=== PATIENT | male | born 1940 | race Caucasian/White ===

== ENCOUNTER → 2017-06-11 | Outpatient (CLI) | payer MEDICARE ==
[~2017-06-11] MED LIST: ADVA100A INH; CARD4TAB2 PO; GABA300C5 PO; IOHEXOL 350 MG/ML 10 ML VIAL (for RAD DIAG) IVCONTRAST ONE; ISOS30TA15; ISOS30TA3 PO; LIPI80TA PO; MECL1TAB42 PO; METO-309 PO; MULT-65 PO; PRIL20TA2 PO; PROS5TAB PO; SPIRCAP INH; XOPEAER4 INH
[2017-06-11 09:39] LABS: AUTOMATED NEUTROPHIL # 3.3 TH/MM3 (1.8-7.7); BASOPHIL % 0.6 % (0.0-2.0); EOSINOPHIL # 0.1 TH/MM3 (0-0.4); EOSINOPHIL % 1.5 % (0.0-4.0); HEMATOCRIT 42.8 % (39.0-51.0); HEMO FLAGS DIFF FINAL; LYMPH % 21.7 % (9.0-44.0); LYMPHOCYTE # 1.1 TH/MM3 (1.0-4.8); MEAN CELL VOLUME 95.7 FL (80.0-100.0); MEAN CORPUSCULAR HEMOGLOBIN 32.2 PG (27.0-34.0); MEAN CORPUSCULAR HGB CONC 33.6 % (32.0-36.0); MONO % 13.6 % (0.0-8.0); NEUT % 62.6 % (16.0-70.0); PLATELET COUNT 133 TH/MM3 (150-450); RED BLOOD COUNT 4.47 MIL/MM3 (4.50-5.90); RED CELL DISTRIBUTION WIDTH 13.1 % (11.6-17.2); WHITE BLOOD COUNT 5.3 TH/MM3 (4.0-11.0)
[2017-06-11 09:50] LABS: APTT (PATIENT) 29.4 SEC (24.3-30.1)
[2017-06-11 09:51] LABS: INTERNATIONAL NORMALIZED RATIO 1.2 RATIO; PROTHROMBIN TIME - PATIENT 12.8 SEC (9.8-11.6)
[2017-06-11 10:03] LABS: BICARBONATE 26.5 MEQ/L (21.0-32.0); POTASSIUM 4.1 MEQ/L (3.5-5.1)
--- NOTE | 2017-06-11 14:37 | RADRPT ---
EXAM DATE/TIME: 06/11/2017 09:22 [facility] COMPARISON: No previous studies available for comparison. INDICATIONS : Aortic stenosis; TAVR. IV CONTRAST: 100 cc Omnipaque 350 (iohexol) IV RADIATION DOSE: 42.58 CTDIvol (mGy) MEDICAL HISTORY : Chronic obstructive pulmonary disease. Cardiovascular disease AGIB SURGICAL HISTORY : None. ENCOUNTER: Initial ACUITY: 1 day PAIN SCALE: 0/10 LOCATION: Bilateral chest TECHNIQUE: Volumetric scanning was performed using a multi-row detector CT scanner. The data was post processed with a variety of visualization algorithms including full volume maximum intensity projection, multi -planar sliding thin slab reformation, curved planar reformation, and surface rendering techniques. Using automated exposure control and adjustment of the mA and/or kV according to patient size, radiat ion dose was kept as low as reasonably achievable to obtain optimal diagnostic quality images. DIC OM format image data is available electronically for review and comparison. FINDINGS: CARDIAC: The coronary system is right dominant. The coronary ostia originate in their typical location. There is extensive atherosclerotic plaquing involving the LAD, circumflex and right coronary. The coronari es were not evaluated in detail. There is no pericardial effusion AORTIC ROOT/VALVE: There are 3 valve leaflets. There is extensive calcification involving the aortic annulus and valve l eaflets. The aortic root measures 3.4 cm in maximum dimension. THORACIC AORTA: The tubular portion of the ascending aorta is normal in caliber measuring 3.6 cm. It is relatively di sease free. The aortic arch is normal in caliber. There is mild atherosclerotic plaquing. The origins of the great vessels are widely patent. The descending thoracic aorta demonstrates mild diffuse athe rosclerotic plaquing but is normal in caliber throughout its course measuring 2.6 cm. There is no tori dence of dissection. ABDOMINAL AORTA: The celiac origin is widely patent. There is a short segment occlusion at the origin of the SMA. Ther e are single renal arteries bilaterally. The renal arteries are adequate in caliber. The infrarenal a cosme is normal in caliber. There is moderate diffuse atherosclerotic plaquing. The SARAH is patent. PELVIS: There is diffuse atherosclerotic plaquing involving the common iliac arteries bilaterally. The plaque is predominantly calcified. The common iliac circulation is adequate in caliber bilaterally. There i s high grade stenosis at the origin of the left hypogastric. The right hypogastric is adequate in rajendra iber. The external iliac circulation is widely patent and normal in caliber. The common femorals are widely patent bilaterally. CT source data: THORAX: There are advanced COPD changes and pulmonary fibrosis. The heart is enlarged. There are some scatter ed hilar and mediastinal nodes. These are nonspecific by CT size criteria.. ABDOMEN: The solid organs of the abdomen are grossly intact. There is no retroperitoneal adenopathy. No free a ir or free fluid is present. PELVIS: There is no free fluid within the pelvis. No iliac or inguinal adenopathy is seen. There are small bi lateral inguinal hernias. CONCLUSION: 1. Extensive calcification of the aortic annulus and valve leaflets. Measurements for the thoracic ao rta are listed above. 2. Normal origin of the coronary ostia with fairly extensive atherosclerotic coronary artery disease as above. 3. There is fairly extensive calcified atherosclerotic plaque seen in the thoracic aorta, abdominal a cosme and common iliac arteries. No areas of high grade stenosis are identified. Brock Kruse MD on June 11, 2017 at 14:22 Board Certified Radiologist. This report was verified electronically.
--- NOTE | 2017-06-12 09:04 | RSPPFT ---
DATE OF PROCEDURE: 06/10/17 COMMENTS: Spirometry shows FVC of 3.2 at 59% of predicted, FEV1 of 2.5 at 81%, FEV1/FVC ratio is normal. Flow is slightly decreased at FEF 25, FEF 50, FEF 75 and FEF 25-75. Flow volume loop indicates a restrictive pattern. IMPRESSION: 1. Study is suggestive of restrictive lung disease. 2. Post-bronchodilator study was not done. 3. Patient will need a complete pulmonary function study for further evaluation.
== END ==
LOC: HRSP 07:46
PROVIDERS: ATTEND Radiology Vascular & Interventional Radiology
DX: I35.0 Nonrheumatic aortic (valve) stenosis (principal)
CPT/HCPCS: 74174; 80048; 82040; 85025; 85610; 86850; 86900; 86901; 94010; Q9967; 85730

== ENCOUNTER → 2017-06-17 | Outpatient (CLI) | payer MEDICARE ==
[~2017-06-17] MED LIST changes: +ASPI81 PO; +DOCU1CAP39 PO; -IOHEXOL 350 MG/ML 10 ML VIAL (for RAD DIAG) IVCONTRAST ONE; -ISOS30TA15; +ISOS30TA17; +METO25TA3 PO; +TRAM50 PO
[2017-06-17 11:53] LABS: BASOPHIL % 0.6 % (0.0-2.0); EOSINOPHIL # 0.1 TH/MM3 (0-0.4); EOSINOPHIL % 1.6 % (0.0-4.0); HEMATOCRIT 43.3 % (39.0-51.0); HEMO FLAGS DIFF FINAL; LYMPH % 20.9 % (9.0-44.0); LYMPHOCYTE # 1.3 TH/MM3 (1.0-4.8); MEAN CELL VOLUME 97.3 FL (80.0-100.0); MEAN CORPUSCULAR HEMOGLOBIN 32.6 PG (27.0-34.0); MEAN CORPUSCULAR HGB CONC 33.5 % (32.0-36.0); MONO % 13.9 % (0.0-8.0); PLATELET COUNT 137 TH/MM3 (150-450); RED BLOOD COUNT 4.45 MIL/MM3 (4.50-5.90); RED CELL DISTRIBUTION WIDTH 13.1 % (11.6-17.2); WHITE BLOOD COUNT 6.4 TH/MM3 (4.0-11.0)
[2017-06-17 12:03] LABS: APTT (PATIENT) 29.4 SEC (24.3-30.1); INTERNATIONAL NORMALIZED RATIO 1.1 RATIO; PROTHROMBIN TIME - PATIENT 12.1 SEC (9.8-11.6)
[2017-06-17 12:12] LABS: BICARBONATE 28.3 MEQ/L (21.0-32.0); POTASSIUM 4.1 MEQ/L (3.5-5.1)
[2017-06-17 12:24] LABS: BLOOD, URINE NEG (NEG); COMMENT (UR) CULT NOT INDICATED; CULTURE IF INDICATED CULT NOT INDICATED; GLUCOSE,URINE NEG (NEG); KETONE, URINE NEG (NEG); NITRITE,URINE NEG (NEG); SQUAMOUS EPITHELIAL CELL URINE <1 /hpf (0-5); URINE COLOR YELLOW (YELLW/STRAW)
--- NOTE | 2017-06-17 13:24 | RADRPT ---
EXAM DATE/TIME: 06/17/2017 12:50 [facility] COMPARISON: No previous studies available for comparison. INDICATIONS : Preop aortic valve replacement. MEDICAL HISTORY : Cardiovascular disease. PAD. SURGICAL HISTORY : Cholecystectomy. Hernia. Left leg arterial surgery. ENCOUNTER: Initial ACUITY: 1 day PAIN SCORE: 0/10 LOCATION: Bilateral neck PEAK SYSTOLIC VELOCITIES (cm/sec): ICA/CCA RATIO: Right: 1.7 Left: 0.9 ICA: Right: 96 Left: 65 CCA: Right: 57 Left: 75 ECA: Right: 52 Left: 66 VERTEBRAL: Right: 56 antegrade Left: 34 antegrade Elevated flow velocities and ICA/CCA ratios have been found to correlate with increased degrees of vessel stenosis, calculated as percentage of diameter relative to a normal segment of distal ICA/CCA FINDINGS: RIGHT CAROTID: There is no evidence for a hemodynamically significant carotid stenosis. Minimal int imal hyperplasia is present with moderate scattered calcific plaque. LEFT CAROTID: There is no evidence for a hemodynamically significant carotid stenosis. Minimal inti mal hyperplasia is present with scattered calcific plaque. VERTEBRAL ARTERIES: Flow is antegrade in both vertebral arteries. MISCELLANEOUS: There are no ancillary masses or adenopathy. CONCLUSION: Negative examination for a hemodynamically significant carotid stenosis. Moderate calci fic plaque along the right. Board Certified Radiologist. This report was verified electronically.
[2017-06-17 15:02] LABS: MRSA PCR NEGATIVE (NEGATIVE); STAPH AUREUS PCR NEGATIVE (NEGATIVE)
--- NOTE | 2017-06-17 15:23 | RADRPT ---
EXAM DATE/TIME: 06/17/2017 13:11 [facility] COMPARISON: No previous studies available for comparison. INDICATIONS : Pre op aortic valve replacement. Evaluate for pneumonia, pneumothorax, or communicable diseases. MEDICAL HISTORY : Chronic obstructive pulmonary disease. Cardiovascular disease AFIB SURGICAL HISTORY : Umbilical hernia repair. Cholecystectomy. ENCOUNTER: Initial ACUITY: 1 day PAIN SCORE: 0/10 LOCATION: Bilateral chest FINDINGS: Diffuse increased interstitial markings are noted bilaterally consistent with acute or chronic inters titial disease. The heart is top normal in size. Mild compression deformity is noted involving what appears to be the T12 vertebral body of indeterminate age. Mild compression deformity is also noted involving T5 of indeterminate age. CONCLUSION: 1. Mild increased interstitial markings bilaterally consistent with acute or chronic interstitial dis ease. Clinical correlation is recommended. 2. Mild compression deformities involving T12 and T5 of indeterminate ages. Ranjit De Los Santos MD on June 17, 2017 at 15:08 Board Certified Radiologist. This report was verified electronically.
--- NOTE | 2017-06-18 13:20 | EKG ---
Date Performed: 06/17/2017 Time Performed: 11:17:09 PTAGE: 77 years EKG: ATRIAL FIBRILLATION WITH SLOW VENTRICULAR RESPONSE RIGHT BUNDLE BRANCH BLOCK ABNORMAL ECG NO PREVIOUS TRACING DOCTOR: Omer Dialol Interpretating Date/Time 06/18/2017 13:15:56
== END ==
LOC: CPRE 10:46
PROVIDERS: ATTEND Thoracic Surgery (Cardiothoracic Vascular Surgery)
DX: Z01.810 Encounter for preprocedural cardiovascular examination (principal); Z01.811 Encounter for preprocedural respiratory examination; Z01.812 Encounter for preprocedural laboratory examination; I35.0 Nonrheumatic aortic (valve) stenosis; I48.0 Paroxysmal atrial fibrillation; R94.31 Abnormal electrocardiogram [ECG] [EKG]
CPT/HCPCS: 36415; 71020; 80048; 81001; 85025; 85610; 85730; 86850; 86900; 86901; 87640; 87641; 93005; 93880

== ENCOUNTER 2017-06-22 05:32 | Inpatient (IN) | payer MEDICARE ==
[~2017-06-22] VITALS: Ht 195.6 cm; Wt 90.5 kg
[2017-06-22] VITALS (7 sets, daily range): BP systolic 105–148; BP diastolic 45–68; PULSE 69–86; RESP 18–22; TEMP 96.7–98.6; O2SAT 95–99
[~2017-06-22 05:32] MED LIST changes: -ASPI81 PO; -DOCU1CAP39 PO; -ISOS30TA17; -METO25TA3 PO; -TRAM50 PO
[2017-06-22] MEDS ORDERED: VANCOMYCIN HCL 1000 MG VIAL ONE (06:10)
[2017-06-22] MEDS ORDERED: ceFAZolin 2 GM PREMIX 50 ML ONE (06:10)
[2017-06-22] MEDS ORDERED: methylPREDNISolone SOD SUCC 125 MG/2 ML VIAL ONE (06:10)
[2017-06-22] MEDS ORDERED: BUPIVACAINE HCL PF 0.5% 30 ML VIAL ONE (06:10)
[2017-06-22] MEDS ORDERED: HEPARIN SODIUM - SQ 10,000 UNITS/ML VIAL ONE (06:10)
[2017-06-22] MEDS ORDERED: DEXMEDETOMIDINE HCL 200 MCG/2 ML VIAL ONE (06:13)
[2017-06-22] MEDS ORDERED: CHLORHEXIDINE GLUCONATE 4% SOLN 120 ML BTL TOPICAL SCH (06:30)
[2017-06-22] MEDS ORDERED: METOPROLOL TARTRATE 25 MG TAB PO PRN ×2 (06:30→07:30)
[2017-06-22] MEDS ORDERED: CEFAZOLIN 500 MG in NS IRR BTL 500 ML IRRIGATION SCH (06:30)
[2017-06-22] MEDS ORDERED: CHLORHEXIDINE GLUCONATE 2 % 1 PACK (2 CLOTHS) TOPICAL PRN ×2 (06:30→07:30)
[2017-06-22] MEDS ORDERED: ceFAZolin 2 GM PREMIX 50 ML IV SCH (06:30)
[2017-06-22] MEDS ORDERED: INSULIN REGULAR 100 UNITS in NS 100 ML IV PRN (06:30)
[2017-06-22] MEDS ORDERED: METOPROLOL TARTRATE 25 MG TAB PO SCH (06:30)
[2017-06-22] MEDS ORDERED: LACTATED RINGER'S 1000 ML IV PRN ×2 (06:30→07:30)
[2017-06-22] MEDS ORDERED: INSULIN HUMAN REGULAR 1,000 UNITS/10 ML VIAL SQ PRN ×2 (06:30→07:30)
[2017-06-22] MEDS ORDERED: SODIUM CHLORID 0.9% 500 ML IV PRN ×2 (06:30→07:30)
[2017-06-22] MEDS ORDERED: DEXTROSE 50% IN WATER 50 ML VIAL(D50) IV PUSH PRN ×2 (06:30→12:00)
[2017-06-22] MEDS ORDERED: POVIDONE IODINE 5% (ANTISEPSIS KIT) 4 APPLICATIONS EACH NARE PRN ×2 (06:30→07:30)
[2017-06-22] MEDS ORDERED: POTASSIUM CHLORIDE 40 MEQ/20 ML VIAL ONE (07:20)
[2017-06-22] MEDS ORDERED: SODIUM BICARBONATE 8.4% INJ 100 ML ONE (07:20)
[2017-06-22] MEDS ORDERED: ALBUMIN 25% INJ 50 ML IV ONE (07:21)
[2017-06-22] MEDS ORDERED: MANNITOL INJ 100 ML ONE (07:21)
[2017-06-22] MEDS ORDERED: HEPARIN SODIUM - IV 10,000 UNITS/10 ML VIAL ONE (07:21)
[2017-06-22] MEDS ORDERED: CALCIUM CHLORIDE 10% SOLN 1 GRAM/10 ML SYR ONE (07:22)
[2017-06-22] MEDS ORDERED: ceFAZolin INJ 1,000 MG VIAL ONE (11:14)
[2017-06-22] MEDS ORDERED: CLEVIDIPINE INJ 50 ML IV PRN (12:00)
[2017-06-22] MEDS ORDERED: ACETAMINOPHEN 650 MG SUPP RECTAL PRN (12:00)
[2017-06-22] MEDS ORDERED: ACETAMINOPHEN 325 MG TAB PO PRN (12:00)
[2017-06-22] MEDS ORDERED: PHENYLEPHRINE HCL 10 MG/ML VIAL IV ONE (12:00)
[2017-06-22] MEDS ORDERED: oxyCODONE/ACETAMINOPHEN 5 MG/325 MG TAB PO PRN (12:00)
[2017-06-22] MEDS ORDERED: NORMOSOL R INJ 1,000 ML IV ONE (12:00)
[2017-06-22] MEDS ORDERED: ALBUMIN 5% INJ 250 ML IV PRN (12:00)
[2017-06-22] MEDS ORDERED: NEOSTIGMINE 3 MG/3 ML SYR IV ONE (12:00)
[2017-06-22] MEDS ORDERED: Post-op Orders (for Pharmacy) MISC OTHER ONE (12:00)
[2017-06-22] MEDS ORDERED: SODIUM BICARBONATE 8.4% SOLN 50 MEQ/50 ML VIAL IV PUSH PRN ×2 (12:00)
[2017-06-22] MEDS ORDERED: SODIUM CHLOR 0.9% 250 ML INJ 750 ML IV ONE (12:00)
[2017-06-22] MEDS ORDERED: SODIUM CHLORID 0.9% 500 ML INJ 500 ML IV ONE (12:00)
[2017-06-22] MEDS ORDERED: POTASSIUM CHLORIDE 20 MEQ CONTROLLED RELEASE TAB PO PRN ×2 (12:00)
[2017-06-22] MEDS ORDERED: ONDANSETRON HCL 4 MG/2 ML VIAL IV PUSH PRN (12:00)
[2017-06-22] MEDS ORDERED: CALCIUM CHLORIDE INJ 1 GM in SODIUM CHLORIDE 0.9% INJ 100 ML IV PRN (12:00)
[2017-06-22] MEDS ORDERED: hydrALAZINE HCL 20 MG/ML VIAL IV PUSH PRN (12:00)
[2017-06-22] MEDS ORDERED: PROTAMINE SULFATE 250 MG/25 ML VIAL IV ONE (12:00)
[2017-06-22] MEDS ORDERED: ARTIFICIAL TEARS OPTH OINT 3.5 APPLIC/3.5 GM TUBO EACH EYE ONE (12:00)
[2017-06-22] MEDS ORDERED: PHENYLEPH/NS 1000 MCG/10 ML SYR IV ONE ×2 (12:00)
[2017-06-22] MEDS ORDERED: RESP: ALBUTEROL 2.5 MG/IPRATROPIUM 0.5 MG NEB (PRN) NEB (12:00)
[2017-06-22] MEDS ORDERED: fentaNYL CITRATE 2500 MCG/50 ML VIAL IV ONE (12:00)
[2017-06-22] MEDS ORDERED: GLYCOPYRROLATE 1 MG/5 ML SYRINGE IV PUSH ONE (12:00)
[2017-06-22] MEDS ORDERED: HEPARIN SODIUM - SQ 10,000 UNITS/ML VIAL SQ ONE (12:00)
[2017-06-22] MEDS ORDERED: CARDIOPLEGIC IRR 2,000 ML ONE (12:00)
[2017-06-22] MEDS ORDERED: CALCIUM CHLORIDE 10% 1 GRAM/10 ML VIAL IV PUSH PRN (12:00)
[2017-06-22] MEDS ORDERED: DEXMEDETOMIDINE INJ 200 MCG in SODIUM CHLORIDE 0.9% INJ 50 ML IV PRN (12:00)
[2017-06-22] MEDS ORDERED: LACTATED RINGER'S 1000 ML INJ 1,000 ML IV ONE (12:00)
[2017-06-22] MEDS ORDERED: INSULIN REGULAR (IV INFUSION) 100 UNITS in SODIUM CHLORIDE 0.9% INJ 99 ML IV PRN (12:00)
[2017-06-22] MEDS ORDERED: VECURONIUM BROMIDE 10 MG VIAL IV ONE (12:00)
[2017-06-22] MEDS ORDERED: ePHEDrine/NS 25 MG/5 ML SYR IV ONE ×2 (12:00)
[2017-06-22] MEDS ORDERED: MAGNESIUM SULFATE 1 GM/2 ML VIAL IV ONE (12:00)
[2017-06-22] MEDS ORDERED: LIDOCAINE HCL 1% PF 5 ML AMPULE OTHER ONE (12:00)
[2017-06-22] MEDS ORDERED: ONDANSETRON HCL 4 MG/2 ML VIAL IV PUSH ONE (12:00)
[2017-06-22] MEDS ORDERED: POTASSIUM CHLOR 20 MEQ PREMIX 100 ML IV PRN ×3 (12:00)
[2017-06-22] MEDS ORDERED: METOPROLOL TARTRATE 5 MG/5 ML VIAL IV PUSH PRN (12:00)
[2017-06-22] MEDS ORDERED: MIDAZOLAM HCL 2 MG/2 ML VIAL IV ONE (12:00)
[2017-06-22] MEDS ORDERED: MAGNESIUM SULFATE INJ 2 GM in SODIUM CHLORIDE 0.9% INJ 100 ML IV PRN ×4 (12:00)
[2017-06-22] MEDS ORDERED: AMINOCAPROIC ACID INJ 250 MG/ML 20 ML VIAL IV ONE (12:00)
[2017-06-22] MEDS ORDERED: SODIUM CHLORIDE 0.9% FLUSH 10 ML FLUSH IV FLUSH PRN (12:00)
--- NOTE | 2017-06-22 12:06 | PD.OP ---
cc: Lilly Rosario MD; Ham,Bill Moore Operative Report Date of Surgery: Jun 22, 2017 Preoperative Diagnosis: (1) Aortic stenosis (2) Diastolic heart failure due to valvular disease Postoperative Diagnosis: same Procedure: Minimally invasive AVR with a 25 Intuity tissue valve Left femoral artery and vein percutaneous cannulation with Perclose closure of the artery GLENNY Anesthesia: Dr. Harley Surgeon: Lilly Rosario Journeyman Mechanic(s): CHARO [place] Operation and Findings: The risks, benefits, complications, treatment options, and expected outcomes were discussed with the patient. The possibilities of reaction to medication, pulmonary aspiration, perforation of viscus, bleeding, recurrent infection, the need for additional procedures, failure to diagnose a condition, and creating a complication requiring transfusion or operation were discussed with the patient. The patient concurred with the proposed plan, giving informed consent. The site of surgery properly noted/marked. The patient was taken to Operating Room, identified as Linda Ramsay and the procedure verified as Minimally Invasive Aortic Valve Replacement. A Time Out was held and the above information confirmed. Standard monitoring lines and Looney catheter were placed. General anesthesia was induced. The patient was prepped and draped in a sterile fashion. A 6 cm right anterior thoracotomy was performed and the 3rd rib was shingled. The right internal mammary artery and vein were ligated and divided. An Mark Anthony retractor was placed followed by a small chest retractor. The pericardium was opened and a pericardial sling was created using interrupted 0 silk sutures. A small 1 cm incision was made at the 6th intercostal space and an LV vent and pericardial suction were placed through this access port. The aorta was dissected posteriorly for crossclamp placement. The left femoral artery and vein were percutaneously accessed using ultrasound guidance. The patient was heparinized for cardiopulmonary bypass. The left femoral artery was cannulated with a 17F [employer] arterial cannula. The left femoral vein was cannulated with a 21 [employer] cannula under GLENNY guidance. Three Perclose devices were placed in the artery for later closure. Antegrade Custodiol cardioplegia was employed. The patient was placed on cardiopulmonary bypass. An aortic cross-clamp was applied and the heart was arrested using cold Custodiol cardioplegia delivered through a 14F catheter. The aorta was opened above the sinotubular ridge and the aortic valve was exposed. On opening the aorta, the valve appeared trileaflet with heavy calcification. The valve was resected as well as all annular calcification, sized for a 25 mm Intuity tissue valve which was placed with 3, 2-0 Tycron valve sutures. The valve seated well, and was balloon deployed to 5 shayla. The aorta was closed with running 4-0 Prolene suture. The patient systemically rewarmed and placed in Trendelenburg position. The heart was vigorously deaired with a clamp on. The clamp was removed, deairing continued. The patient was easily weaned from cardiopulmonary bypass. Decannulation was carried out without incident and both artery was secured with the Perclose sutures. The vein was controlled with manual compression. Protamine was given. There was no adverse reaction. Intraoperative GLENNY following the procedure showed a well-seated aortic valve with no perivalvular leak and preserved ventricular function. Wound was checked for hemostasis was obtained using electrocautery. A 32F right pleural chest tube was placed and secured to the skin with a 0 silk suture. The fascia and pectoralis were closed with 0 Vicryl. The subcutaneous tissue was closed using a running 3-0 Monocryl suture. The skin was closed with 4-0 Monocryl. Sterile dressings were placed. At the end of the operation, all sponge, instruments, and needle counts were correct. The patient was transferred to the CVICU in stable condition. Lilly Rosario MD Jun 22, 2017 12:06
[2017-06-22] MEDS ORDERED: LACTATED RINGER'S 1000 ML INJ 500 ML IV PRN (12:45)
[2017-06-22] MEDS ORDERED: RESP: RACEPINEPHRINE 2.25% 0.5 ML NEB NEB PRN (13:00)
--- NOTE | 2017-06-22 13:09 | RADRPT ---
EXAM DATE/TIME: 06/22/2017 12:46 [facility] COMPARISON: CHEST PA & LAT, June 17, 2017, 13:11. INDICATIONS : Post CABG. MEDICAL HISTORY : Chronic obstructive pulmonary disease. Gastroesophageal reflux disease. SURGICAL HISTORY : CABG. Cholecystectomy. ENCOUNTER: Initial ACUITY: 1 day PAIN SCORE: Non-responsive. LOCATION: Bilateral chest FINDINGS: Right chest tube and right central line in good position. Mild cardiomegaly with minimal interstitia l edema. There is no pneumothorax. CONCLUSION: 1. Negative pneumothorax, support apparatus in good position. 2. Cardiomegaly with mild congestive failure with minimal progression from 06/17/2017. Sigifredo Kruse MD FACR on June 22, 2017 at 13:06 Board Certified Radiologist. This report was verified electronically.
[2017-06-22] MEDS: ACETAMINOPHEN 1000 MG/100 ML 100 ML IV SCH ×2 (13:47→20:47)
[2017-06-22] MEDS ORDERED: AMIODARONE HCL 150 MG/3 ML VIAL ONE (14:06)
[2017-06-22] MEDS ORDERED: AMIODARONE HCL 150 MG/3 ML VIAL IV PUSH ONE (16:00)
[2017-06-22] MEDS: RESP: ALBUTEROL 2.5 MG/IPRATROPIUM 0.5 MG NEB (SCH) NEB ×2 (16:39→22:05)
[2017-06-22] MEDS: ATORVASTATIN 80 MG TAB PO SCH (20:46)
[2017-06-22] MEDS: BUDESONIDE-FORMOTEROL 80/4.5 MCG INHALER INH SCH (20:46)
[2017-06-22] MEDS: SODIUM CHLORIDE 0.9% FLUSH 10 ML FLUSH IV FLUSH SCH (20:46)
[2017-06-22] MEDS: FINASTERIDE 5 MG TAB PO SCH (21:00)
[2017-06-22] MEDS ORDERED: OMEPRAZOLE MAGNESIUM PO SCH (21:00)
[2017-06-23] VITALS (16 sets, daily range): BP systolic 109–151; BP diastolic 48–71; PULSE 73–129; RESP 16–19; TEMP 98.4–98.9; O2SAT 96–98
[2017-06-23] MEDS: ACETAMINOPHEN 1000 MG/100 ML 100 ML IV SCH ×2 (02:53→07:48)
[2017-06-23 04:48] LABS: HEMATOCRIT 37.1 % (39.0-51.0); MEAN CELL VOLUME 95.7 FL (80.0-100.0); MEAN CORPUSCULAR HEMOGLOBIN 31.7 PG (27.0-34.0); MEAN CORPUSCULAR HGB CONC 33.2 % (32.0-36.0); PLATELET COUNT 68 TH/MM3 (150-450); RED BLOOD COUNT 3.88 MIL/MM3 (4.50-5.90); RED CELL DISTRIBUTION WIDTH 13.2 % (11.6-17.2); WHITE BLOOD COUNT 11.5 TH/MM3 (4.0-11.0)
[2017-06-23] MEDS: RESP: ALBUTEROL 2.5 MG/IPRATROPIUM 0.5 MG NEB (SCH) NEB ×2 (04:48→08:48)
[2017-06-23 05:01] LABS: REVIEW FLAG FINAL
[2017-06-23 05:16] LABS: BICARBONATE 22.9 MEQ/L (21.0-32.0); MAGNESIUM 1.9 MG/DL (1.5-2.5); POTASSIUM 3.9 MEQ/L (3.5-5.1)
--- NOTE | 2017-06-23 05:45 | RADRPT ---
EXAM DATE/TIME: 06/23/2017 04:43 [facility] COMPARISON: CHEST SINGLE AP, June 22, 2017, 12:46. INDICATIONS : Short of breath. MEDICAL HISTORY : Chronic obstructive pulmonary disease. Gastroesophageal reflux disease. SURGICAL HISTORY : CABG. Cholecystectomy. ENCOUNTER: Subsequent ACUITY: 4 - 6 days PAIN SCORE: 0/10 LOCATION: Bilateral chest FINDINGS: The cardiac silhouette is enlarged in transverse diameter. There is prominence of the central pulmona ry vasculature with indistinct vascular margins compatible with vascular congestion but no evidence o f overt failure. The findings are improved when compared with the prior exam. A right chest tube is i n place. There is no evidence of pneumothorax. CONCLUSION: 1. Cardiomegaly and findings of vascular congestion without overt failure. The findings are improved when compared with the prior exam. Brandon Feliciano MD on June 23, 2017 at 5:42 Board Certified Radiologist. This report was verified electronically.
[2017-06-23] MEDS: PANTOPRAZOLE SOD 40 MG DELAYED RELEASE TAB PO SCH (06:00)
[2017-06-23] MEDS: ASPIRIN 81 MG CHEW TAB PO SCH ×3 (08:20→08:54)
[2017-06-23] MEDS: BUDESONIDE-FORMOTEROL 80/4.5 MCG INHALER INH SCH ×2 (08:20→21:15)
[2017-06-23] MEDS: TIOTROPIUM BROMIDE 18 MCG INH INH SCH (08:20)
[2017-06-23] MEDS: SODIUM CHLORIDE 0.9% FLUSH 10 ML FLUSH IV FLUSH SCH ×2 (08:20→21:00)
[2017-06-23] MEDS: GABAPENTIN 300 MG CAP PO SCH ×2 (08:20→21:13)
[2017-06-23] MEDS: MUPIROCIN 2% OINT 22 GM TUBE EACH NARE SCH ×2 (09:00→21:00)
[2017-06-23] MEDS ORDERED: MULTIVITAMIN INJ 10 ML, THIAMINE INJ 500 MG, FOLIC ACID INJ 1 MG in SODIUM CHLORID 0.9%... IV SCH (09:00)
[2017-06-23] MEDS ORDERED: MULTIVITAMIN TAB PO SCH (09:00)
[2017-06-23] MEDS ORDERED: DEXTROSE 50% IN WATER 50 ML VIAL(D50) IV PUSH PRN (10:00)
[2017-06-23] MEDS ORDERED: GLUCAGON 1 MG/ML VIAL OTHER PRN (10:00)
--- NOTE | 2017-06-23 10:09 | PD.CAR.PN ---
CVT Progress Note Subjective/Hospital Course: 77/ male exertional dyspnea , chest pain and syncope , Diastolic heart Failure NYHA 2, hx of severe, Aortic stenosis underwent cath up [place] nonobstructive CAD , electively admitted for Aortic valve replacement EF 45% PMH, severe , Afib, COPD , HTN, HLP surgery: 06/22 Minimally invasive AVR with a 25 Intuity tissue valve Left femoral artery and vein percutaneous cannulation with Perclose closure of the artery GLENNY extubated after surgery/ pump time 83min crystalloid 1750cc/ cell saver 750cc, EBL 2250cc / given solumedrol 06/23 up in chair, on nasal cannula chest tube drained 200cc/ 12 hrs + 2 kg gentle diuresis episode of afib last pm, bolused with IV amiodarone / now on scheduled po amiodarone continue pulm toileting transfer to stepdown unit , Objective: GENERAL: SKIN: Warm and dry. dressing intact right upper chest wall / Vwires in place HEAD: Normocephalic. EYES: No scleral icterus. No injection or drainage. NECK: Supple, trachea midline. No JVD or lymphadenopathy. CARDIOVASCULAR: Regular rate and rhythm without murmurs, gallops, or rubs. RESPIRATORY: Breath sounds equal bilaterally. No accessory muscle use. chest tube right lower chest wall to suction, no air leak / drained 200cc/ 12 hrs faint exp wheeze GASTROINTESTINAL: Abdomen soft, non-tender, nondistended. MUSCULOSKELETAL: No cyanosis, or edema. BACK: Nontender without obvious deformity. No CVA tenderness. Vital Signs Date Time Temp Pulse Resp B/P (MAP) Pulse Ox O2 Delivery O2 Flow Rate FiO2 06/23/17 08:49 98 Nasal Cannula 2.00 06/23/17 07:00 81 06/23/17 07:00 98.9 84 16 117/60 (79) 98 141/51 (81) 06/23/17 07:00 98 Nasal Cannula 3.00 06/23/17 05:00 18 06/23/17 03:25 18 06/23/17 03:00 97 Nasal Cannula 3.00 06/23/17 03:00 98.5 73 18 124/48 (73) 97 06/23/17 03:00 73 06/22/17 23:00 97.9 74 18 112/57 (75) 95 115/45 (68) 06/22/17 23:00 95 Nasal Cannula 3.00 06/22/17 23:00 86 06/22/17 22:05 96 Nasal Cannula 3.00 06/22/17 19:00 74 06/22/17 19:00 95 Nasal Cannula 3.00 06/22/17 19:00 98.6 74 22 134/47 (76) 95 123/66 (85) 06/22/17 16:40 96 Nasal Cannula 3.00 06/22/17 15:08 76 148/68 06/22/17 15:00 69 06/22/17 15:00 98 Nasal Cannula 3.00 06/22/17 15:00 97.7 70 18 148/68 (94) 98 135/52 (79) 06/22/17 12:45 95 Simple Mask 8.00 06/22/17 12:30 99 Simple Mask 8.00 06/22/17 12:30 76 06/22/17 12:30 76 06/22/17 12:30 96.7 76 20 105/60 (75) 99 127/53 (77) Labs: Laboratory Tests Test 06/23/17 04:10 White Blood Count 11.5 TH/MM3 (4.0-11.0) Red Blood Count 3.88 MIL/MM3 (4.50-5.90) Hemoglobin 12.3 GM/DL (13.0-17.0) Hematocrit 37.1 % (39.0-51.0) Mean Corpuscular Volume 95.7 FL (80.0-100.0) Mean Corpuscular Hemoglobin 31.7 PG (27.0-34.0) Mean Corpuscular Hemoglobin Concent 33.2 % (32.0-36.0) Red Cell Distribution Width 13.2 % (11.6-17.2) Platelet Count 68 TH/MM3 (150-450) Mean Platelet Volume 9.5 FL (7.0-11.0) Blood Urea Nitrogen 19 MG/DL (7-18) Creatinine 0.83 MG/DL (0.60-1.30) Random Glucose 158 MG/DL (74-106) Calcium Level 8.0 MG/DL (8.5-10.1) Magnesium Level 1.9 MG/DL (1.5-2.5) Sodium Level 141 MEQ/L (136-145) Potassium Level 3.9 MEQ/L (3.5-5.1) Chloride Level 105 MEQ/L (98-107) Carbon Dioxide Level 22.9 MEQ/L (21.0-32.0) Anion Gap 13 MEQ/L (5-15) Estimat Glomerular Filtration Rate 90 ML/MIN (>89) Result Diagram: 06/23/1740906/23/17409 Telemetry: Afib> NSR (1) Aortic stenosis (2) S/P AVR (aortic valve replacement) Plan: keep chest tube in , pulm toileting OOB, PT (3) Hypertension Plan: controlled (4) Hyperlipemia Plan: resume statin (5) Diastolic heart failure due to valvular disease Plan: gentle diuresis EF 45% (6) Afib Plan: on low dose BB, amiodarone Melida Guzman Jun 23, 2017 10:09
--- NOTE | 2017-06-23 10:12 | HHI.FF ---
Face to Face Verification Diagnosis: (1) Aortic stenosis (2) Diastolic heart failure due to valvular disease (3) Hyperlipemia (4) Hypertension (5) Afib (6) S/P AVR (aortic valve replacement) Home Health Nursing Order: Signs/symptoms of disease process Medication education-adverse effect Wound care and dressing changes Nursing assessment with vital signs Instructions: Heart and Vascular Surgery patients *Special attention to sternal dressing Mandatory frequency Assess and evaluation, 4 days in a row The next week 3X week 2 times a week for 4 weeks 1 time a week for 5 weeks Schedule Heart and Vascular patients for full 60 day certification period Initial visit Review Open Heart Surgery Discharge Instructions (Sternal precautions, Activity, Elastic hose, Incision care, Driving, Incentive spirometry, Smoking, Clarks, Work and other) Need Betadine to paint incision Medication reconciliation Importance of follow up care/ check on appointments Make calendar record temperature daily When to call [facility] at Home nurse, review instructions, phone list Incentive Spirometry, demonstration Visit 1- Begin discharge instruction for patient family and/ or caregiver using teach back method- Signs and symptoms of infection Disease characteristics Medicines and side effects Foods and nutrition/ appetite Infection control/ hand washing/ hygiene Visit 2- Continue teaching Discharge instructions- include additional information on smoking cessation , sternal dressing (sternal vac) Visit 3- Continue teaching- Cough and deep breathing, incision monitoring. Choose my plate Visit 4- Continue teaching- Discuss limitations Discuss how they are feeling Discuss progress toward goals Remaining visits- continue teaching and monitoring For any questions please call : Incentive spirometry Q1 hr x 10, while awake, also use acapella device hourly whole awake chest wall Precautions: NO pushing or pulling, ( pt must use chest pillow to support chest with all activities and with coughing ( takes up to 3 months breast bone to heal ) Daily incision care: ok to shower daily, no tub bath. Wash all incisions with liquid dial soap, clean wash cloth to each site, rinse and pat dry. Observe for any signs of infection, such as drainage which is dark yellow, joaquin, green or foul smelling. Immediately report to the surgeon any drainage from the chest incision, or legs, and for any abnormal drainage from the chest tube sites. Notify surgeon if any temp >101.5 degrees F. When specialty dressing removed/ or if you do not have one, continue to shower daily as above, then rinse and pat incision dry and paint with betadine daily x 5 days. Allow steri strips to fall off if you have any. Avoid lotions, creams, salves, oils, etc. for the first month For Dr. Rosario patients , please obtain CBC, BMP, PA & Lat CXR in 2 weeks, results to Dr. Rosario ( prescription will be given) ( ) (Tele: [phone]) , Valve replacement pts will need 2decho in 2 weeks with results to Dr. Rosario . 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 Bustos & Dr. Rosario), After Hours / Nights (5pm -8am) Weekends and Holidays Please call [facility] ([facility]) Charge Nurse I have seen patient Kimo Saldaña Josiah, on 06/23/17. My clinical findings support the need for the requested home health care services because: Deconditioned w/ increased weakness I certify that my clinical findings support that this patient is homebound because: Post-op weakness Melida Guzman Jun 23, 2017 10:12
[2017-06-23] MEDS ORDERED: FUROSEMIDE 40 MG/4 ML VIAL IV PUSH ONE (10:30)
[2017-06-23] MEDS: INSULIN ASPART SUPPLEMENTAL SCALE SQ SCH ×4 (10:43→21:33)
[2017-06-23] MEDS: AMIODARONE 200 MG TAB PO SCH ×3 (10:44→21:13)
[2017-06-23] MEDS ORDERED: POTASSIUM CHLORIDE 20 MEQ CONTROLLED RELEASE TAB PO ONE (10:45)
[2017-06-23] MEDS: METOPROLOL TARTRATE 25 MG TAB PO SCH ×2 (10:51→21:14)
[2017-06-23] MEDS: DOCUSATE SODIUM 100 MG CAP PO SCH ×2 (11:04→21:14)
[2017-06-23] MEDS ORDERED: PILL SPLITTER OTHER PRN (11:30)
[2017-06-23] MEDS: KETOROLAC TROMETHAMINE 30 MG/ML (IVP) VIAL IV PUSH SCH ×2 (18:31→23:40)
[2017-06-23] MEDS ORDERED: DOXAZOSIN MESYLATE 4 MG TAB PO SCH (21:00)
[2017-06-23] MEDS: SENNOSIDES 8.6 MG TAB PO SCH (21:13)
[2017-06-23] MEDS: ATORVASTATIN 80 MG TAB PO SCH (21:14)
[2017-06-23] MEDS: FINASTERIDE 5 MG TAB PO SCH (21:14)
[2017-06-24] VITALS (30 sets, daily range): BP systolic 100–140; BP diastolic 49–62; PULSE 69–109; RESP 17–19; TEMP 97.7–98.8; O2SAT 92–98
[2017-06-24] MEDS: INSULIN ASPART SUPPLEMENTAL SCALE SQ SCH ×6 (02:00→21:00)
[2017-06-24] MEDS: AMIODARONE 200 MG TAB PO SCH (03:07)
[2017-06-24 03:58] LABS: AUTOMATED NEUTROPHIL # 10.4 TH/MM3 (1.8-7.7); HEMATOCRIT 36.3 % (39.0-51.0); LYMPH % 7.9 % (9.0-44.0); MEAN CORPUSCULAR HEMOGLOBIN 31.5 PG (27.0-34.0); MEAN CORPUSCULAR HGB CONC 32.8 % (32.0-36.0); MONO % 10.9 % (0.0-8.0); NEUT % 81.2 % (16.0-70.0); PLATELET COUNT 65 TH/MM3 (150-450); RED BLOOD COUNT 3.78 MIL/MM3 (4.50-5.90); RED CELL DISTRIBUTION WIDTH 13.3 % (11.6-17.2); WHITE BLOOD COUNT 12.8 TH/MM3 (4.0-11.0)
[2017-06-24 04:01] LABS: HEMO FLAGS AUTO DIFF
[2017-06-24 04:20] LABS: BICARBONATE 30.3 MEQ/L (21.0-32.0); MAGNESIUM 2.3 MG/DL (1.5-2.5); POTASSIUM 4.3 MEQ/L (3.5-5.1)
[2017-06-24] MEDS: PANTOPRAZOLE SOD 40 MG DELAYED RELEASE TAB PO SCH (06:09)
[2017-06-24] MEDS: KETOROLAC TROMETHAMINE 30 MG/ML (IVP) VIAL IV PUSH SCH (06:11)
[2017-06-24 07:07] LABS: PLATELET ESTIMATE SMEAR LOW (NORMAL); PLATELET MORPHOLOGY NORMAL (NORMAL); SCAN/DIFF AUTO DIFF CONFIRMED
[2017-06-24] MEDS: RESP: ALBUTEROL 2.5 MG/3 ML NEB (SCH) NEB ×3 (08:00→21:04)
[2017-06-24] MEDS: MAGNESIUM HYDROXIDE SUSP 30 ML CUP PO SCH (09:00)
[2017-06-24] MEDS: MUPIROCIN 2% OINT 22 GM TUBE EACH NARE SCH ×2 (09:00→21:00)
[2017-06-24] MEDS: ASPIRIN 81 MG CHEW TAB PO SCH (09:00)
[2017-06-24] MEDS: TIOTROPIUM BROMIDE 18 MCG INH INH SCH (09:53)
[2017-06-24] MEDS: GABAPENTIN 300 MG CAP PO SCH ×2 (09:54→22:19)
[2017-06-24] MEDS: METOPROLOL TARTRATE 25 MG TAB PO SCH ×2 (09:54→22:20)
[2017-06-24] MEDS: MULTIVITAMINS/MINERALS THERAPEUTIC TAB PO SCH (09:55)
[2017-06-24] MEDS: DOCUSATE SODIUM 100 MG CAP PO SCH ×2 (09:56→21:00)
[2017-06-24] MEDS: POLYETHYLENE GLYCOL 17 GM PKG PO SCH (09:56)
--- NOTE | 2017-06-24 09:56 | EKG ---
Date Performed: 06/23/2017 Time Performed: 15:47:56 PTAGE: 77 years EKG: Sinus rhythm Right bundle branch block Inferior T wave changes are nonspecific Abnormal ECG PREVIOUS TRACING : 06/17/2017 11.17 DOCTOR: Juan A Black Interpretating Date/Time 06/24/2017 09:56:18
[2017-06-24] MEDS: BUDESONIDE-FORMOTEROL 80/4.5 MCG INHALER INH SCH ×2 (09:57→22:18)
[2017-06-24] MEDS: SODIUM CHLORIDE 0.9% FLUSH 10 ML FLUSH IV FLUSH SCH ×2 (09:57→22:19)
--- NOTE | 2017-06-24 13:21 | PD.CAR.PN ---
CVT Progress Note Subjective/Hospital Course: 77/ male exertional dyspnea , chest pain and syncope , Diastolic heart Failure NYHA 2, hx of severe, Aortic stenosis underwent cath up [place] nonobstructive CAD , electively admitted for Aortic valve replacement EF 45% PMH, severe , Afib, COPD , HTN, HLP surgery: 06/22 Minimally invasive AVR with a 25 Intuity tissue valve Left femoral artery and vein percutaneous cannulation with Perclose closure of the artery GLENNY extubated after surgery/ pump time 83min crystalloid 1750cc/ cell saver 750cc, EBL 2250cc / given solumedrol 06/23 up in chair, on nasal cannula chest tube drained 200cc/ 12 hrs + 2 kg gentle diuresis episode of afib last pm, bolused with IV amiodarone / now on scheduled po amiodarone continue pulm toileting transfer to stepdown unit , 06/24 chest tube drained 100cc/ 12 hrs removed without difficulty PLT 65, toradol dc , re-eval in am persistent afib,will need to start eliquis in am will dc amiodarone Objective: GENERAL: SKIN: Warm and dry. incision intact right upper chest wall , v wire removed , ecchymosis right upper chest wall incision HEAD: Normocephalic. EYES: No scleral icterus. No injection or drainage. NECK: Supple, trachea midline. No JVD or lymphadenopathy. CARDIOVASCULAR: irregular rate and rhythm without murmurs, gallops, or rubs. suture in place groin from surgical cannulation RESPIRATORY: Breath sounds equal bilaterally. No accessory muscle use. diminished in bases , chest tube dc GASTROINTESTINAL: Abdomen soft, non-tender, nondistended. MUSCULOSKELETAL: No cyanosis, or edema. BACK: Nontender without obvious deformity. No CVA tenderness. Vital Signs Date Time Temp Pulse Resp B/P (MAP) Pulse Ox O2 Delivery O2 Flow Rate FiO2 06/24/17 12:00 69 06/24/17 11:45 98.2 71 17 107/52 (70) 96 06/24/17 11:45 Nasal Cannula 1.00 06/24/17 11:00 72 06/24/17 10:00 75 06/24/17 09:00 76 06/24/17 08:20 97.7 77 18 104/53 (70) 98 06/24/17 08:00 72 06/24/17 07:15 Nasal Cannula 2.00 06/24/17 07:00 76 06/24/17 06:30 81 06/24/17 05:09 80 06/24/17 04:50 80 06/24/17 04:50 98.1 88 17 101/52 (68) 94 06/24/17 04:50 98 Nasal Cannula 2.00 06/24/17 03:30 87 06/24/17 02:07 81 06/24/17 01:14 84 06/24/17 00:40 97 Nasal Cannula 2.00 06/24/17 00:02 86 06/23/17 23:40 97 Nasal Cannula 2.00 06/23/17 23:40 98.6 90 18 109/56 (73) 97 06/23/17 23:00 84 06/23/17 22:00 93 06/23/17 21:00 93 06/23/17 20:00 91 06/23/17 19:52 98.4 96 19 117/56 (76) 96 06/23/17 19:52 96 Nasal Cannula 2.00 06/23/17 19:45 103 06/23/17 18:00 129 06/23/17 17:00 84 06/23/17 16:07 16 06/23/17 16:00 87 16 134/64 (87) 97 06/23/17 16:00 87 06/23/17 15:00 97 Nasal Cannula 2.00 06/23/17 15:00 91 06/23/17 14:49 87 16 134/64 (87) 97 Labs: Laboratory Tests Test 06/24/17 03:30 White Blood Count 12.8 TH/MM3 (4.0-11.0) Red Blood Count 3.78 MIL/MM3 (4.50-5.90) Hemoglobin 11.9 GM/DL (13.0-17.0) Hematocrit 36.3 % (39.0-51.0) Mean Corpuscular Volume 96.0 FL (80.0-100.0) Mean Corpuscular Hemoglobin 31.5 PG (27.0-34.0) Mean Corpuscular Hemoglobin Concent 32.8 % (32.0-36.0) Red Cell Distribution Width 13.3 % (11.6-17.2) Platelet Count 65 TH/MM3 (150-450) Mean Platelet Volume 9.8 FL (7.0-11.0) Neutrophils (%) (Auto) 81.2 % (16.0-70.0) Lymphocytes (%) (Auto) 7.9 % (9.0-44.0) Monocytes (%) (Auto) 10.9 % (0.0-8.0) Eosinophils (%) (Auto) 0.0 % (0.0-4.0) Basophils (%) (Auto) 0.0 % (0.0-2.0) Neutrophils # (Auto) 10.4 TH/MM3 (1.8-7.7) Lymphocytes # (Auto) 1.0 TH/MM3 (1.0-4.8) Monocytes # (Auto) 1.4 TH/MM3 (0-0.9) Eosinophils # (Auto) 0.0 TH/MM3 (0-0.4) Basophils # (Auto) 0.0 TH/MM3 (0-0.2) CBC Comment AUTO DIFF Differential Comment AUTO DIFF CONFIRMED Platelet Estimate LOW (NORMAL) Platelet Morphology Comment NORMAL (NORMAL) Blood Urea Nitrogen 25 MG/DL (7-18) Creatinine 0.88 MG/DL (0.60-1.30) Random Glucose 106 MG/DL (74-106) Calcium Level 7.7 MG/DL (8.5-10.1) Magnesium Level 2.3 MG/DL (1.5-2.5) Sodium Level 140 MEQ/L (136-145) Potassium Level 4.3 MEQ/L (3.5-5.1) Chloride Level 103 MEQ/L (98-107) Carbon Dioxide Level 30.3 MEQ/L (21.0-32.0) Anion Gap 7 MEQ/L (5-15) Estimat Glomerular Filtration Rate 84 ML/MIN (>89) Result Diagram: 06/24/1732906/24/17329 Telemetry: afib (1) Aortic stenosis (2) S/P AVR (aortic valve replacement) Plan: chest tube removed, without difficulty pulm toileting OOB, PT (3) Hypertension Plan: controlled (4) Hyperlipemia Plan: resume statin (5) Diastolic heart failure due to valvular disease Plan: gentle diuresis EF 45% (6) Afib Plan: on low dose BB, BP labile decrease BPH meds also (7) Thrombocytopenia Plan: dc toradol monitor labs Melida Guzman Jun 24, 2017 13:21
[2017-06-24] MEDS: SENNOSIDES 8.6 MG TAB PO SCH (21:00)
[2017-06-24] MEDS ORDERED: AMIODARONE 200 MG TAB PO SCH (21:00)
[2017-06-24] MEDS: FINASTERIDE 5 MG TAB PO SCH (22:19)
[2017-06-24] MEDS: DOXAZOSIN MESYLATE 2 MG TAB PO SCH (22:19)
[2017-06-24] MEDS: ATORVASTATIN 80 MG TAB PO SCH (22:20)
[2017-06-25] VITALS (30 sets, daily range): BP systolic 124–148; BP diastolic 59–66; PULSE 73–90; RESP 14–19; TEMP 98.1–98.8; O2SAT 93–99
[2017-06-25] MEDS: PANTOPRAZOLE SOD 40 MG DELAYED RELEASE TAB PO SCH (06:00)
[2017-06-25] MEDS ORDERED: SOD PHOSPHATE/SOD BIPHOSPHATE (ADULT) ENEMA 133ML RECTAL PRN (06:00)
[2017-06-25] MEDS ORDERED: BISACODYL 10 MG SUPP RECTAL PRN (06:00)
[2017-06-25 06:17] LABS: AUTOMATED NEUTROPHIL # 5.4 TH/MM3 (1.8-7.7); BASOPHIL % 0.1 % (0.0-2.0); EOSINOPHIL % 0.1 % (0.0-4.0); HEMATOCRIT 31.7 % (39.0-51.0); LYMPH % 13.1 % (9.0-44.0); MEAN CELL VOLUME 95.3 FL (80.0-100.0); MEAN CORPUSCULAR HEMOGLOBIN 31.8 PG (27.0-34.0); MEAN CORPUSCULAR HGB CONC 33.4 % (32.0-36.0); MONO % 13.6 % (0.0-8.0); NEUT % 73.1 % (16.0-70.0); PLATELET COUNT 51 TH/MM3 (150-450); RED BLOOD COUNT 3.32 MIL/MM3 (4.50-5.90); RED CELL DISTRIBUTION WIDTH 13.1 % (11.6-17.2); WHITE BLOOD COUNT 7.5 TH/MM3 (4.0-11.0)
--- NOTE | 2017-06-25 06:18 | RADRPT ---
EXAM DATE/TIME: 06/25/2017 04:46 [facility] COMPARISON: CHEST SINGLE AP, June 23, 2017, 4:43. INDICATIONS : Shortness of breath, possible pulmonary disease. MEDICAL HISTORY : Chronic obstructive pulmonary disease. Gastroesophageal reflux disease. SURGICAL HISTORY : CABG. Cholecystectomy. ENCOUNTER: Subsequent ACUITY: 1 week PAIN SCORE: 0/10 LOCATION: Bilateral chest FINDINGS: The cardiac silhouette is enlarged in transverse diameter. The right chest tube has been removed. The re is no evidence of pneumothorax. There is prominence of the central pulmonary vasculature with ind istinct vascular margins compatible with vascular congestion but no evidence of overt failure. CONCLUSION: 1. Cardiomegaly and findings of vascular congestion without overt failure. There has been no signific ant change when compared to the prior exam. 2. There is no evidence of pneumothorax. Brandon Feliciano MD on June 25, 2017 at 6:15 Board Certified Radiologist. This report was verified electronically.
[2017-06-25 06:23] LABS: HEMO FLAGS AUTO DIFF
[2017-06-25] MEDS: RESP: ALBUTEROL 2.5 MG/3 ML NEB (SCH) NEB (07:47)
[2017-06-25] MEDS: INSULIN ASPART SUPPLEMENTAL SCALE SQ SCH ×4 (07:56→21:00)
[2017-06-25] MEDS: MUPIROCIN 2% OINT 22 GM TUBE EACH NARE SCH ×2 (08:34→21:00)
[2017-06-25] MEDS: SODIUM CHLORIDE 0.9% FLUSH 10 ML FLUSH IV FLUSH SCH ×2 (08:35→21:14)
[2017-06-25] MEDS: DOCUSATE SODIUM 100 MG CAP PO SCH ×2 (08:35→21:00)
[2017-06-25] MEDS: BUDESONIDE-FORMOTEROL 80/4.5 MCG INHALER INH SCH ×2 (08:35→21:14)
[2017-06-25] MEDS: TIOTROPIUM BROMIDE 18 MCG INH INH SCH (08:35)
[2017-06-25] MEDS: POLYETHYLENE GLYCOL 17 GM PKG PO SCH (08:36)
[2017-06-25] MEDS: METOPROLOL TARTRATE 25 MG TAB PO SCH ×2 (08:36→21:00)
[2017-06-25] MEDS: GABAPENTIN 300 MG CAP PO SCH ×2 (08:36→21:14)
[2017-06-25] MEDS: MAGNESIUM HYDROXIDE SUSP 30 ML CUP PO SCH (08:36)
[2017-06-25] MEDS: MULTIVITAMINS/MINERALS THERAPEUTIC TAB PO SCH (08:36)
[2017-06-25] MEDS: ASPIRIN 81 MG CHEW TAB PO SCH (09:00)
[2017-06-25 10:04] LABS: PLATELET ESTIMATE SMEAR LOW (NORMAL); PLATELET MORPHOLOGY ENLARGED (NORMAL); SCAN/DIFF AUTO DIFF CONFIRMED
--- NOTE | 2017-06-25 15:32 | PD.CAR.PN ---
CVT Progress Note Subjective/Hospital Course: 77/ male exertional dyspnea , chest pain and syncope , Diastolic heart Failure NYHA 2, hx of severe, Aortic stenosis underwent [place] nonobstructive CAD , electively admitted for Aortic valve replacement EF 45% PMH, severe , Afib, COPD , HTN, HLP surgery: 06/22 Minimally invasive AVR with a 25 Intuity tissue valve Left femoral artery and vein percutaneous cannulation with Perclose closure of the artery GLENNY extubated after surgery/ pump time 83min crystalloid 1750cc/ cell saver 750cc, EBL 2250cc / given solumedrol 06/23 up in chair, on nasal cannula chest tube drained 200cc/ 12 hrs + 2 kg gentle diuresis episode of afib last pm, bolused with IV amiodarone / now on scheduled po amiodarone continue pulm toileting transfer to stepdown unit , 06/24 chest tube drained 100cc/ 12 hrs removed without difficulty PLT 65, toradol dc , re-eval in am persistent afib,will need to start eliquis in am will dc amiodarone 06/25 cxr noted , no evidence of PTX PLT 51/ HGB stable hold ASA for PLT < 70K HIT panel pending, Hematology consulted hold on starting eliquis feels better today , BP improved Objective: GENERAL: SKIN: Warm and dry.poor skin turgor, multiple ecchymotic areas noted to arms, ecchymosis right IJ site , left chest incision site and left groin site acquisition specialist: Normocephalic. EYES: No scleral icterus. No injection or drainage. NECK: Supple, trachea midline. No JVD or lymphadenopathy. CARDIOVASCULAR: irregular rate and rhythm without murmurs, gallops, or rubs. RESPIRATORY: Breath sounds equal bilaterally. No accessory muscle use. GASTROINTESTINAL: Abdomen soft, non-tender, nondistended. MUSCULOSKELETAL: No cyanosis, or edema. BACK: Nontender without obvious deformity. No CVA tenderness. Vital Signs Date Time Temp Pulse Resp B/P (MAP) Pulse Ox O2 Delivery O2 Flow Rate FiO2 06/25/17 14:09 79 06/25/17 13:25 98 Room Air 06/25/17 13:24 78 06/25/17 12:59 98.5 84 16 139/64 (89) 98 06/25/17 10:13 79 06/25/17 09:45 87 06/25/17 08:05 99 Room Air 06/25/17 08:05 75 06/25/17 07:59 98.2 75 14 129/60 (83) 99 06/25/17 07:49 99 06/25/17 07:22 90 06/25/17 06:10 80 06/25/17 05:11 76 06/25/17 04:06 76 06/25/17 03:50 78 06/25/17 03:50 98.1 79 19 148/66 (93) 98 06/25/17 03:50 96 Room Air 06/25/17 02:48 78 06/25/17 01:00 73 06/25/17 00:00 88 06/24/17 23:40 98.3 109 19 140/62 (88) 96 06/24/17 23:40 96 Room Air 06/24/17 23:00 85 06/24/17 22:00 89 06/24/17 21:08 92 21 06/24/17 21:00 79 06/24/17 20:00 80 06/24/17 19:50 92 Room Air 06/24/17 19:50 98.8 82 18 107/53 (71) 92 06/24/17 19:00 76 06/24/17 18:05 94 06/24/17 17:00 77 06/24/17 16:00 73 Labs: Laboratory Tests Test 06/25/17 05:20 White Blood Count 7.5 TH/MM3 (4.0-11.0) Red Blood Count 3.32 MIL/MM3 (4.50-5.90) Hemoglobin 10.6 GM/DL (13.0-17.0) Hematocrit 31.7 % (39.0-51.0) Mean Corpuscular Volume 95.3 FL (80.0-100.0) Mean Corpuscular Hemoglobin 31.8 PG (27.0-34.0) Mean Corpuscular Hemoglobin Concent 33.4 % (32.0-36.0) Red Cell Distribution Width 13.1 % (11.6-17.2) Platelet Count 51 TH/MM3 (150-450) Mean Platelet Volume 9.9 FL (7.0-11.0) Neutrophils (%) (Auto) 73.1 % (16.0-70.0) Lymphocytes (%) (Auto) 13.1 % (9.0-44.0) Monocytes (%) (Auto) 13.6 % (0.0-8.0) Eosinophils (%) (Auto) 0.1 % (0.0-4.0) Basophils (%) (Auto) 0.1 % (0.0-2.0) Neutrophils # (Auto) 5.4 TH/MM3 (1.8-7.7) Lymphocytes # (Auto) 1.0 TH/MM3 (1.0-4.8) Monocytes # (Auto) 1.0 TH/MM3 (0-0.9) Eosinophils # (Auto) 0.0 TH/MM3 (0-0.4) Basophils # (Auto) 0.0 TH/MM3 (0-0.2) CBC Comment AUTO DIFF Differential Comment AUTO DIFF CONFIRMED Platelet Estimate LOW (NORMAL) Platelet Morphology Comment ENLARGED (NORMAL) Result Diagram: 06/25/17 0520 06/24/17 0330 (1) Aortic stenosis (2) S/P AVR (aortic valve replacement) Plan: chest tube removed, without difficulty pulm toileting OOB, PT (3) Hypertension Plan: controlled (4) Hyperlipemia Plan: resume statin (5) Diastolic heart failure due to valvular disease Plan: gentle diuresis EF 45% (6) Afib Plan: on low dose BB, BP improved (7) Thrombocytopenia Plan: dc toradol monitor labs plt 51/ HIT panel pending hematology consulted Melida Guzman Jun 25, 2017 15:32
[2017-06-25] MEDS: traMADol HCL 50 MG TAB PO PRN (18:24)
[2017-06-25] MEDS: SENNOSIDES 8.6 MG TAB PO SCH (21:00)
[2017-06-25] MEDS: ATORVASTATIN 80 MG TAB PO SCH (21:14)
[2017-06-25] MEDS: FINASTERIDE 5 MG TAB PO SCH (21:15)
[2017-06-25] MEDS: DOXAZOSIN MESYLATE 2 MG TAB PO SCH (21:15)
[2017-06-26] VITALS (18 sets, daily range): BP systolic 125–148; BP diastolic 61–70; PULSE 80–88; RESP 18; TEMP 98.2–98.4; O2SAT 94–97
[2017-06-26 05:35] LABS: HEMATOCRIT 34.2 % (39.0-51.0); MEAN CELL VOLUME 95.9 FL (80.0-100.0); MEAN CORPUSCULAR HEMOGLOBIN 32.1 PG (27.0-34.0); MEAN CORPUSCULAR HGB CONC 33.5 % (32.0-36.0); PLATELET COUNT 61 TH/MM3 (150-450); RED BLOOD COUNT 3.57 MIL/MM3 (4.50-5.90); RED CELL DISTRIBUTION WIDTH 13.3 % (11.6-17.2); WHITE BLOOD COUNT 6.3 TH/MM3 (4.0-11.0)
[2017-06-26 05:39] LABS: REVIEW FLAG FINAL
[2017-06-26] MEDS: traMADol HCL 50 MG TAB PO PRN (05:49)
[2017-06-26] MEDS: PANTOPRAZOLE SOD 40 MG DELAYED RELEASE TAB PO SCH (05:49)
[2017-06-26] MEDS: INSULIN ASPART SUPPLEMENTAL SCALE SQ SCH ×2 (08:00→12:00)
--- NOTE | 2017-06-26 08:04 | MB ---
cc: KATHY ARIZA MD DATE OF CONSULTATION 06/26/2017 DATE OF [address] Lilly Rosario of thoracic surgery REASON FOR CONSULTATION Thrombocytopenia in a patient who is status post aortic valve replacement (on pump). CHIEF COMPLAINT Mr. Cueva denies acute complaints at this time and reports recovering well from his surgery. He specifically denies pain and denies breathing difficulties. HISTORY OF PRESENT ILLNESS Ms. Cueva is a very pleasant 77-year-old male who recently relocated from [place] to [facility]. Mr. Cueva reports having had aortic valve stenosis dating back several years and reports having been recommended aortic valve repair or aortic valve replacement by surgeons in [place]. He elected to delay the procedure until he moved to [place]. Upon moving to [place], he established follow up with Dr. Rosario who recommended a minimally invasive aortic valve repair after performing workup which included echocardiography. The patient had become increasingly short of breath with exertion. Surgery was performed on 06/22/2017. The operative note was reviewed and based on the operative report, the patient did go on pump for a portion of this procedure. He has had a relatively uncomplicated postoperative course. Blood work performed prior to surgery indicates a normal platelet count at 140,000. Immediately postoperative, the platelet counts dropped to 68,000 and then donnell at 51,000 on 06/25/2017. The hematology service was asked to see the patient for further workup and evaluation. There had been no reported complications such as bleeding following surgery. PAST MEDICAL HISTORY 1. COPD 2. Previous history of tobaccoism. 3. Aortic valve stenosis 4. A pulmonary nodule involving the left lung which has been there chronically per the patient. 5. Hyperlipidemia PAST SURGICAL HISTORY 1. Status post cholecystectomy 2. Multiple hernia surgeries 3. Replacement of one of the left groin blood vessels with a cadaver blood vessel. 4. A recent minimally invasive aortic valve repair. FAMILY HISTORY Parents are both . Father of complications of heart disease and mother of advanced age. ALLERGIES LISINOPRIL SOCIAL HISTORY The patient is retired, he is originally from [place] and recently moved to the [facility]. He is . 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 CURRENT INPATIENT MEDICATIONS 1. Tylenol 650 mg p.o. q.4 h 2. DuoNebs q.2 h as needed for wheezing. 3. Aspirin 81 mg once daily 4. Atorvastatin 80 mg once daily at nighttime 5. Symbicort 2 puffs inhaled q.2 h. 6. Colace 100 mg p.o. b.i.d. 7. Doxazosin 2 mg p.o. q.h.s. 8. Finasteride 2.5 mg p.o. q.h.s. 9. Gabapentin 300 p.o. b.i.d. 10. Insulin sliding scale 11. Metoprolol 12.5 mg p.o. b.i.d. 12. Pantoprazole 40 mg p.o. daily 13. Tiotropium 18 mcg inhaled daily REVIEW OF SYSTEMS 13-point review of systems were obtained. The following are the pertinent positives and negatives. CONSTITUTIONAL: The patient denies fevers, chills or night sweats. He denies weight loss or loss of appetite. HEENT: Denies headaches, blurry vision, difficulty swallowing or soreness in the throat. RESPIRATORY: Reports exertional dyspnea, denies cough, hemoptysis or pleuritic chest pain. CARDIOVASCULAR: Denies angina-like chest pain, PND, orthopnea. : No complaints of dysuria, hematuria, or urine incontinence. GI: Denies difficulty swallowing, gastroesophageal reflux, denies abdominal distension, denies nausea, vomiting, diarrhea hematochezia, or melena. DIRECTOR OF GRADUATE ADMISSIONS: Denies any focal sensory motor deficits. SKIN: No complaints. PHYSICAL EXAMINATION VITAL SIGNS: Temperature 98.4 degrees Fahrenheit, heart rate 83 beats per minute, respiratory rate 16, blood pressure 148/63, O2 sats 94% on room air. GENERAL APPEARANCE: Mr. Cueva is an elderly male, he is of medium height and moderate build, he is sitting up in bed. He appears to be in no acute distress and has a pleasant disposition. HEENT: Head is atraumatic, normocephalic, conjunctive are not pale. Sclerae are anicteric, EOMI, PERRLA, oral exam, no pharyngeal erythema. NECK: No palpable cervical, supraclavicular lymphadenopathy. RESPIRATORY: Good air movement bilaterally. No added breath sounds. CARDIOVASCULAR: Regular rate and rhythm, S1-S2. No obvious murmurs, rubs or gallops. CHEST: On the right side of his chest, he has an approximately 3-1/2 inches surgical incision noted, this is without evidence of bleeding. ABDOMEN: The abdomen is thin, soft and nontender. No obvious organ enlargement, specifically splenomegaly, positive bowel sounds. EXTREMITIES: No pretibial edema. No calf tenderness. MUSCULOSKELETAL: Patient with generally decreased and diminished muscle mass, but adequate tone and strength. DIRECTOR OF GRADUATE ADMISSIONS: Without any obvious focal sensory or motor deficits. LABORATORY FINDINGS Blood work dated 06/26/2017: WBC count 6.3, hemoglobin 11.5 gm/dl, hematocrit 34.2%, platelet count is 61,000. Chemistries: Sodium 140, potassium 4.3, chloride 103, bicarb 30, BUN 25, creatinine 0.88, random glucose 106, calcium 7.7, magnesium 2.3. ASSESSMENT Mr. Cueva is a very pleasant 77-year-old male with a history of aortic valve stenosis, COPD, personal history of tobaccoism and hyperlipidemia. He was admitted to the hospital on 06/22/2017 for a minimally invasive aortic valve repair procedure. This was performed without complications. He has been recovering well postoperatively. However, he has had a decline in his platelet counts from preop levels to postop levels. Over the past 48 hours, his platelet counts have decreased from close to 70,000 down to 50,000 and are now trending up. His surgery was performed with the assistance of a pump. It appears the likely etiology of the thrombocytopenia is consumption during surgery. This is not an uncommon occurrence when cardiac surgery is performed on the pump. It is encouraging to note his platelet counts are trending upwards. RECOMMENDATIONS Thrombocytopenia: Likely consumptive in nature. His platelet counts are beginning to trend upwards. I would recommend serially repeating CBC to continue monitoring the trend. This can be done as an outpatient. I will provide the patient with prescriptions to have CBC done over the next two to three weeks with results forwarded to me. Additional workup will be ordered on an as-needed basis depending on the intermediate trend of the platelets. MD ALEXIS De La Rosa/GRECIA /7:27 AM 7:44 AM
[2017-06-26] MEDS: MAGNESIUM HYDROXIDE SUSP 30 ML CUP PO SCH (08:33)
[2017-06-26] MEDS: POLYETHYLENE GLYCOL 17 GM PKG PO SCH (08:33)
[2017-06-26] MEDS: BUDESONIDE-FORMOTEROL 80/4.5 MCG INHALER INH SCH (08:34)
[2017-06-26] MEDS: TIOTROPIUM BROMIDE 18 MCG INH INH SCH (08:34)
[2017-06-26] MEDS: MULTIVITAMINS/MINERALS THERAPEUTIC TAB PO SCH (08:35)
[2017-06-26] MEDS: ASPIRIN 81 MG CHEW TAB PO SCH (08:35)
[2017-06-26] MEDS: SODIUM CHLORIDE 0.9% FLUSH 10 ML FLUSH IV FLUSH SCH (08:35)
[2017-06-26] MEDS: METOPROLOL TARTRATE 25 MG TAB PO SCH (08:36)
[2017-06-26] MEDS: DOCUSATE SODIUM 100 MG CAP PO SCH (08:36)
[2017-06-26] MEDS: GABAPENTIN 300 MG CAP PO SCH (08:36)
[2017-06-26 15:09] LABS: HEPARIN AB OD 0.127 O.D. (0.000-0.300); HEPARIN INDUCED PLATELET AB NEGATIVE (NEGATIVE)
[2017-06-26] MEDS ORDERED: METO25TA3 PO (15:17)
[2017-06-26] MEDS ORDERED: DOCU1CAP39 PO (15:17)
[2017-06-26] MEDS ORDERED: TRAM50 PO (15:17)
[2017-06-26] MEDS ORDERED: ASPI81 PO (15:17)
--- NOTE | 2017-06-26 16:17 | HHI.DS ---
Discharge Summary Admission Date Jun 22, 2017 at 05:32 Discharge Date: Jun 26, 2017 Admitting Diagnosis severe aortic stenosis (1) Aortic stenosis Diagnosis: Principal ICD Codes: I35.0 - Nonrheumatic aortic (valve) stenosis Status: Acute (2) Diastolic heart failure due to valvular disease Diagnosis: Principal ICD Codes: I50.30 - Unspecified diastolic (congestive) heart failure; I38 - Endocarditis, valve unspecified Status: Chronic (3) Hyperlipemia Diagnosis: Principal ICD Codes: E78.5 - Hyperlipidemia, unspecified Status: Chronic (4) Hypertension Diagnosis: Principal ICD Codes: I10 - Essential (primary) hypertension (5) Afib Diagnosis: Principal ICD Codes: I48.91 - Unspecified atrial fibrillation Status: Chronic (6) Thrombocytopenia Diagnosis: Principal ICD Codes: D69.6 - Thrombocytopenia, unspecified Status: Acute (7) S/P AVR (aortic valve replacement) Diagnosis: Secondary ICD Codes: Z95.2 - Presence of prosthetic heart valve Procedures Minimally invasive AVR with a 25 Intuity tissue valve Left femoral artery and vein percutaneous cannulation with Perclose closure of the artery GLENNY 06/22 Brief History 77-year-old male who recently relocated from [place] to [facility]. Mr. Cueva reports having had aortic valve stenosis dating back several years and reports having been recommended aortic valve repair or aortic valve replacement by surgeons in [place]. He elected to delay the procedure until he moved to [place]. Upon moving to [place], he established follow up with Dr. Rosario who recommended a minimally invasive aortic valve repair after performing workup which included echocardiography. The patient had become increasingly short of breath with exertion. Surgery was performed on 06/22/2017. The operative note was reviewed and based on the operative report, the patient did go on pump for a portion of this procedure. He has had a relatively uncomplicated postoperative course. Blood work performed prior to surgery indicates a normal platelet count at 140,000. Immediately postoperative, the platelet counts dropped to 68,000 and> 51,000 on 06/25/2017. pt was then seen and eval for thrombocytopenia CBC/BMP: 06/26/17 0505 06/24/17 0330 Significant Findings Laboratory Tests Test 06/24/17 03:30 06/25/17 05:20 06/25/17 15:55 06/26/17 05:05 White Blood Count 12.8 TH/MM3 (4.0-11.0) Red Blood Count 3.78 MIL/MM3 (4.50-5.90) 3.32 MIL/MM3 (4.50-5.90) 3.57 MIL/MM3 (4.50-5.90) Hemoglobin 11.9 GM/DL (13.0-17.0) 10.6 GM/DL (13.0-17.0) 11.5 GM/DL (13.0-17.0) Hematocrit 36.3 % (39.0-51.0) 31.7 % (39.0-51.0) 34.2 % (39.0-51.0) Platelet Count 65 TH/MM3 (150-450) 51 TH/MM3 (150-450) 61 TH/MM3 (150-450) Neutrophils (%) (Auto) 81.2 % (16.0-70.0) 73.1 % (16.0-70.0) Lymphocytes (%) (Auto) 7.9 % (9.0-44.0) Monocytes (%) (Auto) 10.9 % (0.0-8.0) 13.6 % (0.0-8.0) Neutrophils # (Auto) 10.4 TH/MM3 (1.8-7.7) Monocytes # (Auto) 1.4 TH/MM3 (0-0.9) 1.0 TH/MM3 (0-0.9) Platelet Estimate LOW (NORMAL) LOW (NORMAL) Blood Urea Nitrogen 25 MG/DL (7-18) Calcium Level 7.7 MG/DL (8.5-10.1) Estimat Glomerular Filtration Rate 84 ML/MIN (>89) Platelet Morphology Comment ENLARGED (NORMAL) Imaging Last Impressions Chest X-Ray 06/25/17 0600 Signed Impressions: Service Date/Time: June 04:46 - CONCLUSION: 1. Cardiomegaly and findings of vascular congestion without overt failure. There has been no significant change when compared to the prior exam. 2. There is no evidence of pneumothorax. Brandon Feliciano MD PE at Discharge GENERAL: SKIN: Warm and dry. incision intact and well approximated right upper chest wall HEAD: Normocephalic. EYES: No scleral icterus. No injection or drainage. NECK: Supple, trachea midline. No JVD or lymphadenopathy. CARDIOVASCULAR: irregular rate and rhythm without murmurs, gallops, or rubs. RESPIRATORY: Breath sounds equal bilaterally. No accessory muscle use. GASTROINTESTINAL: Abdomen soft, non-tender, nondistended. MUSCULOSKELETAL: No cyanosis, or edema. BACK: Nontender without obvious deformity. No CVA tenderness. Hospital Course surgery: 06/22 Minimally invasive AVR with a 25 Intuity tissue valve Left femoral artery and vein percutaneous cannulation with Perclose closure of the artery GLENNY extubated after surgery/ pump time 83min crystalloid 1750cc/ cell saver 750cc, EBL 2250cc / given solumedrol 06/23 up in chair, on nasal cannula chest tube drained 200cc/ 12 hrs + 2 kg gentle diuresis episode of afib last pm, bolused with IV amiodarone / now on scheduled po amiodarone continue pulm toileting transfer to stepdown unit , 06/24 chest tube drained 100cc/ 12 hrs removed without difficulty PLT 65, toradol dc , re-eval in am persistent afib,will need to start eliquis in am will dc amiodarone 06/25 cxr noted , no evidence of PTX PLT 51/ HGB stable hold ASA for PLT < 70K HIT panel pending, Hematology consulted hold on starting eliquis feels better today , BP improved 06/26 appreciate hematology input resume ASA at discharge , PLT improved to 61K recheck cbc in one week , if PLT recovered then ok to start eliquis remains in afib, rate controlled , BP stable stable to dc home with son Pt Condition on Discharge: Good Discharge Disposition: Disch w/ Home Health Serv Discharge Instructions DIET: Follow Instructions for: Heart Healthy Diet Activities you can perform: Full Weight Bearing, Shower Only-No Bath Activities to avoid: Strenuous Activity, Driving Additional Activity Instructio: no lifting > 8 lbs or gallon of milk New Orders: 2D ECHO - 2 Weeks BASIC METABOLIC PROF - 1 Week CBC NO DIFF - 1 Week X-RAY CHEST PA & LAT - 2 Weeks New Medications: Aspirin (Tgt Aspirin) 81 Mg Chw 81 MG PO DAILY for Blood Clot Prevention, #30 EA 2 Refills Docusate Sodium (Dok) 100 Mg Cap 100 MG PO BID for Constipation, #60 CAP 0 Refills Metoprolol Tartrate (Metoprolol Tartrate) 25 Mg Tab 25 MG PO BID for Blood Pressure Management, #60 TAB 2 Refills Tramadol (Ultram) 50 Mg Tab 50 MG PO Q6H PRN for PAIN SCALE 6 TO 10, #40 TAB 0 Refills Continued Medications: Atorvastatin (Lipitor) 80 Mg Tab 80 MG PO HS for Cholesterol Management, #30 TAB 0 Refills Doxazosin (Cardura) 4 Mg Tab 4 MG PO HS, #30 TAB 0 Refills Finasteride (Proscar) 5 Mg Tab 5 MG PO HS for Manage Prostate Problems, #30 TAB 0 Refills Do not crush. Fluticasone-Salmeterol Inh (Advair Diskus Inh) 100-50 Mcg/Blist Aer 2 PUFF INH BID for Asthma Management, #1 INHALER 0 Refills Rinse mouth after use. Gabapentin (Gabapentin) 300 Mg Cap 300 MG PO BID, #60 CAP 0 Refills Levalbuterol 15 GM Inh (Xopenex Hfa 15 GM Inh) 45 Mcg/Act Aer 45 MCG INH Q4HR for Shortness of Breath, #1 INHALER 0 Refills Shake well before using. (1 puff = 45 mcg) Meclizine HCl (Meclizine 25) 25 Mg Tab 25 TAB PO PRN for DIZZINESS Multiple Vitamin (Multi-Vitamin Daily) 1 Tab Tab 1 TAB PO DAILY for Nutritional Supplement, TAB 0 Refills Omeprazole Magnesium (Prilosec) 20 Mg Tab 20 CAP PO HS Tiotropium Inh (Spiriva Handihaler) 18 Mcg Cap 18 MCG INH DAILY for COPD, #30 CAP 0 Refills 1 capsule = 18 mcg Discontinued Medications: Isosorbide Mononitrate ER (Isosorbide Mononitrate ER) 30 Mg Tony 30 MG PO DAILY for Prevent Chest Pain, #30 TAB 0 Refills Metoprolol Tartrate (Lopressor) 50 Mg Tab 50 MG PO BID, #60 TAB 0 Refills Melida Guzman Jun 26, 2017 16:17
[2017-06-26] MEDS ORDERED: DOXAZOSIN MESYLATE 2 MG TAB PO SCH (21:00)
[2017-06-26] MEDS ORDERED: METOPROLOL TARTRATE 25 MG TAB PO SCH (21:00)
[2017-06-26] MEDS ORDERED: FINASTERIDE 5 MG TAB PO SCH (21:00)
== END 2017-06-26 17:40 | disposition home health service (06) | DRG 266 ==
LOC: HSDI 05:32 → HCVI 12:29 → HCPC 06-23 14:10
PROVIDERS: ADMIT Thoracic Surgery (Cardiothoracic Vascular Surgery); ATTEND Thoracic Surgery (Cardiothoracic Vascular Surgery)
PROC: B246ZZ4 Ultrasonography of Right and Left Heart, Transesophageal (ICD-10-PCS; 2017-06-22)
PROC: 0W9930Z Drainage of Right Pleural Cavity with Drainage Device, Percutaneous Approach (ICD-10-PCS; 2017-06-22)
PROC: 02RF38Z Replacement of Aortic Valve with Zooplastic Tissue, Percutaneous Approach (ICD-10-PCS; principal; 2017-06-22 07:08)
PROC: 5A1221Z Performance of Cardiac Output, Continuous (ICD-10-PCS; 2017-06-22 07:08)
DX: I35.0 Nonrheumatic aortic (valve) stenosis (principal); I50.23 Acute on chronic systolic (congestive) heart failure; D69.6 Thrombocytopenia, unspecified; I48.1 Persistent atrial fibrillation; I38 Endocarditis, valve unspecified; J44.9 Chronic obstructive pulmonary disease, unspecified; I11.0 Hypertensive heart disease with heart failure; I50.84 End stage heart failure; E78.5 Hyperlipidemia, unspecified; I25.10 Atherosclerotic heart disease of native coronary artery without angina pectoris; N40.0 Benign prostatic hyperplasia without lower urinary tract symptoms; Z87.891 Personal history of nicotine dependence; Z95.1 Presence of aortocoronary bypass graft; R91.1 Solitary pulmonary nodule; Z82.49 Family history of ischemic heart disease and other diseases of the circulatory system; Z00.6 Encounter for examination for normal comparison and control in clinical research program
CPT/HCPCS: 71010; 80048; 82948; 83735; 85014; 85025; 85027; 86022; 86850; 86900; 86901; 86920; 88305; 88311; 93005; 93318; 94150; 94640; 94664; 94667; 94668; J0131; J0282; J0690; J1644; J1815; J1885; J1940; J2150; J2250; J2370; J2405; J2710; J2720; J2930; J3010; J3370; J3475; J3480; J7040; J7050; J7120; J7613; P9047

== ENCOUNTER 2017-12-25 09:56 | Inpatient (IN) | payer MEDICARE ==
[~2017-12-25] VITALS: Ht 195.6 cm; Wt 90.3 kg
[~2017-12-25 09:56] MED LIST changes: +ASPI81 PO; +DOCU1CAP39 PO; -ISOS30TA3 PO; -METO-309 PO; +METO25TA3 PO; +TRAM50 PO
[2017-12-25 10:05] VITALS: BP 156/70; PULSE 78; RESP 18; TEMP 98; O2SAT 97
[2017-12-25] MEDS ORDERED: APIX5TAB PO (10:26)
--- NOTE | 2017-12-25 11:17 | PD ---
HPI Chief Complaint: Skin Problem Time Seen by Provider: 11:01 Travel History International Travel<30 days: No Contact w/Intl Traveler<30days: No Traveled to known affect area: No History of Present Illness HPI 77-year-old male with PMH of aortic stenosis, diastolic heart failure status post mechanical valve replacement, HTN, A. fib, on Xarelto presents to the ED for evaluation of 3 week history of wound of the left foot. He states that he has had a sore area on the foot that was biopsied by Dr. Estes, [facility]. He states that over the last week the area has reddened and the redness has spread over his foot. The pain has also increased. He denies fever, chills, nausea, vomiting. He endorses compliance with the Keflex with no improvement of symptoms. He saw Dr. Estes today and was encouraged to come to the emergency room. PFSH Past Medical History Hx Anticoagulant Therapy: Yes (ELIQUIS) Arthritis: Yes Cancer: No Cardiovascular Problems: Yes COPD: Yes Coronary Artery Disease: Yes Diabetes: No Endocrine: No GERD: Yes Genitourinary: No Hepatitis: No Immune Disorder: No Medical other: Yes (PNEUMOCCOCAL PNEUMONIA IN MARCH) Musculoskeletal: Yes ( SCIATICA) Neurologic: No Psychiatric: No Reproductive: No Respiratory: Yes (NODULE LEFT LUNG) Thyroid Disease: No Tetanus Vaccination: < 5 Years Past Surgical History Abdominal Surgery: Yes (CHOLECYSTECTOMY, INCISIONAL HERNIA) Cardiac Surgery: Yes (BILATERAL STENTS IN LEGS, INSERT CADAVAR VEIN LEFT GROIN) Ear Surgery: No Endocrine Surgery: No Eye Surgery: Yes (CATARACT RIGHT EYE) Genitourinary Surgery: No Gynecologic Surgery: No Joint Replacement: No Oral Surgery: No Pacemaker: No Thoracic Surgery: No Social History Alcohol Use: Yes (SELDOM, RECOVERING ALCOHOLIC) Tobacco Use: No (QUIT 1981) Substance Use: No Allergies-Medications (Allergen,Severity, Reaction): Coded Allergies: lisinopril (Verified Allergy, Severe, INCREASES HEART RATE, 06/22/17) Reported Meds & Prescriptions Reported Meds & Active Scripts Active Metoprolol Tartrate 25 Mg Tab 25 Mg PO BID Reported Eliquis (Apixaban) 5 Mg Tab 5 Mg PO BID Spiriva Handihaler (Tiotropium Inh) 18 Mcg Cap 18 Mcg INH DAILY 1 capsule = 18 mcg Prilosec (Omeprazole Magnesium) 20 Mg Tab 20 Cap PO HS Multi-Vitamin Daily (Multiple Vitamin) 1 Tab Tab 1 Tab PO DAILY Meclizine 25 (Meclizine HCl) 25 Mg Tab 25 Tab PO PRN Xopenex Hfa 15 GM Inh (Levalbuterol 15 GM Inh) 45 Mcg/Act Aer 45 Mcg INH Q4HR Shake well before using. (1 puff = 45 mcg) Gabapentin 300 Mg Cap 300 Mg PO BID Advair Diskus Inh (Fluticasone-Salmeterol Inh) 100-50 Mcg/Blist Aer 2 Puff INH BID Rinse mouth after use. Proscar (Finasteride) 5 Mg Tab 5 Mg PO HS Do not crush. Cardura (Doxazosin Mesylate) 4 Mg Tab 4 Mg PO HS Lipitor (Atorvastatin Calcium) 80 Mg Tab 80 Mg PO HS Review of Systems Except as stated in HPI: all other systems reviewed are Neg Physical Exam Narrative GENERAL: Well-nourished, well-developed white male no acute distress. SKIN: Focused skin assessment warm/dry. HEAD: Normocephalic. EYES: No scleral icterus. No injection or drainage. NECK: Supple, trachea midline. No JVD or lymphadenopathy. CARDIOVASCULAR: Irregularly irregular rate and rhythm without murmurs, gallops, or rubs. RESPIRATORY: Breath sounds clear and equal bilaterally. No accessory muscle use. GASTROINTESTINAL: Abdomen soft, non-tender, nondistended. MUSCULOSKELETAL: No cyanosis. FOCUSED LEFT LOWER EXTREMITY EXAM: 2+ DP pulse. Bunion deformity of the great toe. There is a 3 cm coin shaped defect in the lateral aspect of the left forefoot. This is surrounded by tender erythema with mild edema that extends to the foot. Patient maintains full, active, painless R OM of the extremity. Neurovascularly intact distally. BACK: Nontender without obvious deformity. No CVA tenderness. Data Data Last Documented VS Vital Signs Date Time Temp Pulse Resp B/P (MAP) Pulse Ox O2 Delivery O2 Flow Rate FiO2 12/25/17 10:05 98.0 78 18 156/70 (98) 97 Orders Orders Basic Metabolic Panel (Bmp) (12/25/17 11:08) Complete Blood Count With Diff (12/25/17 11:08) Blood Culture (12/25/17 11:08) Wound Culture And Gram Stain (12/25/17 11:08) Iv Access Insert/Monitor (12/25/17 11:08) Cefazolin Inj (Ancef Inj) (12/25/17 11:15) Morphine Inj (Morphine Inj) (12/25/17 11:30) Sodium Chlor 0.9% 1000 Ml Inj (Ns 1000 M (12/25/17 11:30) Consult Podiatry (12/25/17 ) Admit Order (Ed Use Only) (12/25/17 11:44) Admit To Inpatient (12/25/17 ) Inpatient Certification (12/25/17 ) Diet Heart Healthy (12/25/17 Lunch) ^ Other Nursing Orders (12/25/17 11:44) Vital Signs (Adult) SHEBA.Q4H (12/25/17 11:44) Activity Oob Ad Shyanne (12/25/17 11:44) Labs Laboratory Tests Test 12/25/17 11:22 White Blood Count 7.2 TH/MM3 Red Blood Count 5.01 MIL/MM3 Hemoglobin 14.6 GM/DL Hematocrit 44.2 % Mean Corpuscular Volume 88.2 FL Mean Corpuscular Hemoglobin 29.1 PG Mean Corpuscular Hemoglobin Concent 33.0 % Red Cell Distribution Width 16.5 % Platelet Count 181 TH/MM3 Mean Platelet Volume 8.7 FL Neutrophils (%) (Auto) 69.5 % Lymphocytes (%) (Auto) 16.3 % Monocytes (%) (Auto) 12.9 % Eosinophils (%) (Auto) 0.8 % Basophils (%) (Auto) 0.5 % Neutrophils # (Auto) 5.0 TH/MM3 Lymphocytes # (Auto) 1.2 TH/MM3 Monocytes # (Auto) 0.9 TH/MM3 Eosinophils # (Auto) 0.1 TH/MM3 Basophils # (Auto) 0.0 TH/MM3 CBC Comment DIFF FINAL Differential Comment Blood Urea Nitrogen 10 MG/DL Creatinine 0.94 MG/DL Random Glucose 85 MG/DL Calcium Level 9.2 MG/DL Sodium Level 140 MEQ/L Potassium Level 3.6 MEQ/L Chloride Level 106 MEQ/L Carbon Dioxide Level 25.5 MEQ/L Anion Gap 9 MEQ/L Estimat Glomerular Filtration Rate 78 ML/MIN MDM Medical Decision Making Medical Screen Exam Complete: Yes Emergency Medical Condition: Yes Differential Diagnosis Wound infection versus cellulitis versus failed outpatient treatment versus other Narrative Course 77-year-old male with PMH of aortic stenosis, diastolic heart failure status post mechanical valve replacement, HTN, A. fib, on Xarelto presents to the ED for evaluation of 3 week history of wound of the left foot. Area was biopsied by Dr. Estes. Worsening redness and pain over the last week despite compliance with Keflex. Afebrile on presentation. Exam reveals a coin shaped defect on the lateral aspect of the left plantar surface. There are cellulitic changes of the foot. I spoke with Dr. Estes. She states that she placed the patient on Keflex. Biopsy results revealed scar tissue. She also states that she has done in office imaging that revealed no foreign body. Patient is unable to have MRI secondary to mechanical valve placement. I discussed the plan for blood and wound cultures, IV antibiotics and observation admission. Dr. Estes is agreeable to this plan. Dr. Estes does not have privileges at the hospital. She requests that I consult the [facility] business information consultant. I discussed the plan with the patient who is agreeable to admission. 1 g of Ancef was administered. Pain was controlled with 2 mg morphine. Consult placed with Dr. Aldana. I spoke with who agrees to accept the patient to the medicine service. Please see podiatry and medicine notes for disposition. Meena Reyes December 25, 2017 11:17
[2017-12-25] MEDS ORDERED: MORPHINE SULFATE 2 MG/ML SYRINGE IV PUSH ONE (11:30)
[2017-12-25 11:53] LABS: BASOPHIL % 0.5 % (0.0-2.0); EOSINOPHIL # 0.1 TH/MM3 (0-0.4); EOSINOPHIL % 0.8 % (0.0-4.0); HEMATOCRIT 44.2 % (39.0-51.0); HEMOGLOBIN 14.6 GM/DL (13.0-17.0); LYMPH % 16.3 % (9.0-44.0); LYMPHOCYTE # 1.2 TH/MM3 (1.0-4.8); MEAN CELL VOLUME 88.2 FL (80.0-100.0); MEAN CORPUSCULAR HEMOGLOBIN 29.1 PG (27.0-34.0); MEAN PLATELET VOLUME 8.7 FL (7.0-11.0); MONO % 12.9 % (0.0-8.0); MONOCYTE # 0.9 TH/MM3 (0-0.9); NEUT % 69.5 % (16.0-70.0); PLATELET COUNT 181 TH/MM3 (150-450); RED BLOOD COUNT 5.01 MIL/MM3 (4.50-5.90); RED CELL DISTRIBUTION WIDTH 16.5 % (11.6-17.2); WHITE BLOOD COUNT 7.2 TH/MM3 (4.0-11.0)
[2017-12-25 12:10] LABS: BICARBONATE 25.5 MEQ/L (21.0-32.0); CALCIUM 9.2 MG/DL (8.5-10.1); CREATININE 0.94 MG/DL (0.60-1.30)
[2017-12-25] MEDS ORDERED: MORPHINE SULFATE 4 MG/ML INJ IV PUSH ONE (12:15)
[2017-12-25] MEDS: SODIUM CHLOR 0.9% 1000 ML INJ 1,000 ML IV SCH ×2 (12:19→19:15)
--- NOTE | 2017-12-25 12:48 | PD ---
Data Data Last Documented VS Vital Signs Date Time Temp Pulse Resp B/P (MAP) Pulse Ox O2 Delivery O2 Flow Rate FiO2 12/25/17 10:05 98.0 78 18 156/70 (98) 97 Orders Orders Basic Metabolic Panel (Bmp) (12/25/17 11:08) Complete Blood Count With Diff (12/25/17 11:08) Blood Culture (12/25/17 11:08) Wound Culture And Gram Stain (12/25/17 11:08) Iv Access Insert/Monitor (12/25/17 11:08) Cefazolin Inj (Ancef Inj) (12/25/17 11:15) Morphine Inj (Morphine Inj) (12/25/17 11:30) Sodium Chlor 0.9% 1000 Ml Inj (Ns 1000 M (12/25/17 11:30) Consult Podiatry (12/25/17 ) Admit Order (Ed Use Only) (12/25/17 11:44) Admit To Inpatient (12/25/17 ) Inpatient Certification (12/25/17 ) Diet Heart Healthy (12/25/17 Lunch) ^ Other Nursing Orders (12/25/17 11:44) Vital Signs (Adult) SHEBA.Q4H (12/25/17 11:44) Activity Oob Ad Shyanne (12/25/17 11:44) Labs Laboratory Tests Test 12/25/17 11:22 White Blood Count 7.2 TH/MM3 Red Blood Count 5.01 MIL/MM3 Hemoglobin 14.6 GM/DL Hematocrit 44.2 % Mean Corpuscular Volume 88.2 FL Mean Corpuscular Hemoglobin 29.1 PG Mean Corpuscular Hemoglobin Concent 33.0 % Red Cell Distribution Width 16.5 % Platelet Count 181 TH/MM3 Mean Platelet Volume 8.7 FL Neutrophils (%) (Auto) 69.5 % Lymphocytes (%) (Auto) 16.3 % Monocytes (%) (Auto) 12.9 % Eosinophils (%) (Auto) 0.8 % Basophils (%) (Auto) 0.5 % Neutrophils # (Auto) 5.0 TH/MM3 Lymphocytes # (Auto) 1.2 TH/MM3 Monocytes # (Auto) 0.9 TH/MM3 Eosinophils # (Auto) 0.1 TH/MM3 Basophils # (Auto) 0.0 TH/MM3 CBC Comment DIFF FINAL Differential Comment Blood Urea Nitrogen 10 MG/DL Creatinine 0.94 MG/DL Random Glucose 85 MG/DL Calcium Level 9.2 MG/DL Sodium Level 140 MEQ/L Potassium Level 3.6 MEQ/L Chloride Level 106 MEQ/L Carbon Dioxide Level 25.5 MEQ/L Anion Gap 9 MEQ/L Estimat Glomerular Filtration Rate 78 ML/MIN MDM Supervised Visit with MOLLY: Yes Narrative Course I, Dr. Mckoy, have reviewed the advance practice practitioner's documentation and am in agreement, met with the patient face to face, made the diagnosis, and the medical decision making was done by me. *My assessment and Findings: I have met with the patient. He has significant left-sided foot cellulitis. He saw podiatry today. They recommended admission for IV antibiotics. Labs are reviewed. Mateo Mckoy MD December 25, 2017 12:48
[2017-12-25] MEDS ORDERED: ACETAMINOPHEN/HYDROcodone 325 MG/5 MG TAB PO ONE (13:15)
--- NOTE | 2017-12-25 16:19 | HHI.HP ---
[facility] Primary Care Physician Chris Roberson MD Admission Diagnosis Failed outpatient treatment cellulitis left foot Diagnoses: Chief Complaint: Left foot infection Travel History International Travel<30 Days: No Contact w/Intl Traveler <30 Da: No Traveled to Known Affected Are: No History of Present Illness Patient is a very pleasant 77-year-old male with history of peripheral artery disease- several stents place on both LE, COPD, hypertension, atrial fibrillation, hypertension, GERD who about 4 weeks ago complaining of pain of the left foot while walking. Initial evaluation by outpatient showed there was a callus on the lateral aspect of the foot. This was seen by podiatry and was removed. Patient was doing well until 2 days later started complaining of pain. Area noted to have increase erythema with an open wound there. . Was monitored there was no foreign body then no fever no chills. 1 week and a half later started having erythema and aggressive pain worsened when patient bears weight on this pain described as shooting from the lateral aspect of the foot up to the tibia. 4 days ago was seen by podiatry and was placed on cephalexin 500 mg 4 times a day. With no improvement and was advised by a bulk plant supervisor coming in for further evaluation and management. Review of Systems Constitutional: DENIES: Fever, Weight loss, Chills, Change in appetite Eyes: DENIES: Blurred vision, Double Vision Ears, nose, mouth, throat: DENIES: Tinnitus, Ear Pain, Epistaxis, Odynophagia Respiratory: DENIES: Cough, Hemoptysis, Sputum production, Shortness of breath Cardiovascular: DENIES: Chest pain, Palpitations, Dyspnea on Exertion, Lower Extremity Edema, Orthopnea Gastrointestinal: DENIES: Black stools, Bloody stools, Difficulty Swallowing, Anorexia Genitourinary: DENIES: Urgency, Hematuria, Penile Discharge Musculoskeletal: DENIES: Joint pain, Stiffness Integumentary: DENIES: Pruritus Hematologic/lymphatic: DENIES: Bruising Immunologic/allergic: DENIES: Urticaria Neurologic: DENIES: Headache, Speech Problems, Tremor Psychiatric: DENIES: Suicidal Ideation, Homicidal Ideation Past Family Social History Past Medical History Hypertension COPD Peripheral artery disease status post stents placed on both lower extremities 15 years ago Hyperlipidemia BPH Hypertension Neuropathy GERD History of aortic valve replacement secondary to nonrheumatic aortic stenosis in 2007 Questionable AICD Past Surgical History Aortic valve replacement in 2017 Gallbladder surgery Reported Medications As outpatient Spiriva, Xopenex Eliquis, atorvastatin, Cardura, Lopressor, gabapentin, Advair, omeprazole, Proscar Allergies: Coded Allergies: lisinopril (Verified Allergy, Severe, INCREASES HEART RATE, 06/22/17) Family History Noncontributory Social History Social history quit smoking in 1981 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 SKIN: No rashes, ecchymoses or lesions. Cool and dry. HEAD: Atraumatic. Normocephalic. No temporal or scalp tenderness. EYES: Pupils equal round and reactive. Extraocular motions intact. No scleral icterus. No injection or drainage. ENT: Nose without bleeding,Airway patent. NECK: Trachea midline. No meningeal signs, positive left carotid bruit probably radiation from aortic stenosis CARDIOVASCULAR: Irregular rhythm, 4/6 systolic murmur left sternal border radiating to the left carotid RESPIRATORY: Clear to auscultation. Breath sounds equal bilaterally. No wheezes , rales, or rhonchi. GASTROINTESTINAL: Abdomen soft, non-tender, nondistended. No hepato-splenomegaly , or palpable masses. No guarding. MUSCULOSKELETAL: Left foot with marked erythema- rubor type of erythema, + mild swelling, positive tender to touch, a dime size open wound on the lateral aspect of the left foot, along 5th metatarsal area. faint pulse dorsalis pedis posterior tibialis, warm to touch good femoral pulses++ bilateral NEUROLOGICAL: Awake and alert. Cranial nerves II through XII intact. Motor and sensory grossly within normal limits. Five out of 5 muscle strength in all muscle groups. Normal speech. Laboratory Laboratory Tests Test 12/25/17 11:22 White Blood Count 7.2 Red Blood Count 5.01 Hemoglobin 14.6 Hematocrit 44.2 Mean Corpuscular Volume 88.2 Mean Corpuscular Hemoglobin 29.1 Mean Corpuscular Hemoglobin Concent 33.0 Red Cell Distribution Width 16.5 Platelet Count 181 Mean Platelet Volume 8.7 Neutrophils (%) (Auto) 69.5 Lymphocytes (%) (Auto) 16.3 Monocytes (%) (Auto) 12.9 Eosinophils (%) (Auto) 0.8 Basophils (%) (Auto) 0.5 Neutrophils # (Auto) 5.0 Lymphocytes # (Auto) 1.2 Monocytes # (Auto) 0.9 Eosinophils # (Auto) 0.1 Basophils # (Auto) 0.0 CBC Comment DIFF FINAL Differential Comment Blood Urea Nitrogen 10 Creatinine 0.94 Random Glucose 85 Calcium Level 9.2 Sodium Level 140 Potassium Level 3.6 Chloride Level 106 Carbon Dioxide Level 25.5 Anion Gap 9 Estimat Glomerular Filtration Rate 78 Date/Time Source Procedure Growth Status 12/25/17 11:22 Blood Peripheral Aerobic Blood Culture Pending Received 12/25/17 11:22 Blood Peripheral Anaerobic Blood Culture Pending Received 12/25/17 11:22 Wound Foot Gram Stain Pending Received 12/25/17 11:22 Wound Foot Wound Culture Pending Received Result Diagram: 12/25/17 1122 12/25/17 1122 Caprini VTE Risk Assessment Caprini VTE Risk Assessment: Mod/High Risk (score >= 2) Caprini Risk Assessment Model Point Value = 1 Point Value = 2 Point Value = 3 Point Value = 5 Age 41-60 Minor surgery BMI > 25 kg/m2 Swollen legs Varicose veins or History of unexplained or recurrent spontaneous Oral contraceptives or hormone replacement Sepsis (< 1 month) Serious lung disease, including pneumonia (< 1 month) Abnormal pulmonary function Acute myocardial infarction Congestive heart failure (< 1 month) History of inflammatory bowel disease Medical patient at bed rest Age 61-74 Arthroscopic surgery Major open surgery (> 45 min) Laparoscopic surgery (> 45 min) Malignancy Confined to bed (> 72 hours) Immobilizing plaster cast Central venous access Age >= 75 History of VTE Family history of VTE Factor V Leiden Prothrombin [id number] Lupus anticoagulant Anticardiolipin antibodies Elevated serum homocysteine Heparin-induced thrombocytopenia Other congenital or acquired thrombophilia Stroke (< 1 month) Elective arthroplasty Hip, pelvis, or leg fracture Acute spinal cord injury (< 1 month) Prophylaxis Regimen Total Risk Factor Score Risk Level Prophylaxis Regimen 0-1 Low Early ambulation 2 Moderate Order ONE of the following: *Sequential Compression Device (SCD) *Heparin 5000 units SQ BID 3-4 Higher Order ONE of the following medications: *Heparin 5000 units SQ TID *Enoxaparin/Lovenox 40 mg SQ daily (WT < 150 kg, CrCl > 30 mL/min) *Enoxaparin/Lovenox 30 mg SQ daily (WT < 150 kg, CrCl > 10-29 mL/min) *Enoxaparin/Lovenox 30 mg SQ BID (WT < 150 kg, CrCl > 30 mL/min) AND/OR *Sequential Compression Device (SCD) 5 or more Highest Order ONE of the following medications: *Heparin 5000 units SQ TID (Preferred with Epidurals) *Enoxaparin/Lovenox 40 mg SQ daily (WT < 150 kg, CrCl > 30 mL/min) *Enoxaparin/Lovenox 30 mg SQ daily (WT < 150 kg, CrCl > 10-29 mL/min) *Enoxaparin/Lovenox 30 mg SQ BID (WT < 150 kg, CrCl > 30 mL/min) AND *Sequential Compression Device (SCD) Assessment and Plan Assessment and Plan 77-year-old male sent here by Podaitry for Left foot infected wound with cellulitis rule out abscess rule out osteomyelitis failed outpatient antibiotic treatment Podiatry will be following. Will get an MRI of the foot to rule out any deeper soft tissue involvement. As needed pain meds get ID consult . Get ESR CRP History of hypertension, atrial fibrillation rate controlled. Hyperlipidemia History of PVD Continue on cardiac meds Lopressor Cardura Eliquis and statins BPH. Continue on Cardura and Proscar GERD continue on omeprazole Neuropathy. Continue on gabapentin DVT prophylaxis patient on Eliquis Patient on PPI for GERD Code Status full Discussed Condition With patient Physician Certification 2 Midnight Certification Type: Admission for Inpatient Services Order for Inpatient Services The services are ordered in accordance with Medicare regulations or non- Medicare payer requirements, as applicable. In the case of services not specified as inpatient-only, they are appropriately provided as inpatient services in accordance with the 2-midnight benchmark. Estimated LOS (days): 3 days is the estimated time the patient will need to remain in the hospital, assuming treatment plan goals are met and no additional complications. Post-Hospital Plan: Not yet determined Juan J Will MD December 25, 2017 16:19
[2017-12-25] MEDS ORDERED: Vancomycin Consult Pharmacy 1 EA OTHER SCH (16:30)
[2017-12-25] MEDS ORDERED: VANCOMYCIN INJ 1,000 MG in SODIUM CHLOR 0.9% 250 ML INJ 250 ML IV SCH (16:30)
--- NOTE | 2017-12-25 16:44 | RADRPT ---
EXAM DATE/TIME: 12/25/2017 16:16 [facility] COMPARISON: No previous studies available for comparison. INDICATIONS : Left distal foot is red and painful. Patient states had callus removed from first digit 1 week ago. MEDICAL HISTORY : Chronic obstructive pulmonary disease. Gastroesophageal reflux disease. SURGICAL HISTORY : CABG. Cholecystectomy. ENCOUNTER: Initial ACUITY: 2 weeks PAIN SCORE: 10/10 LOCATION: Left foot FINDINGS: There is mild hallux valgus and degenerative change at the first MTP joint and elsewhere in the phala nges. There is no evidence of fracture, dislocation or bony destruction. There is mild soft tissue sw elling lateral to the fifth metatarsophalangeal joint. The hindfoot is grossly intact. There are prom inent vascular calcifications present. CONCLUSION: No acute bony findings Jeff Goodman MD on December 25, 2017 at 16:41 Board Certified Radiologist. This report was verified electronically.
[2017-12-25] MEDS ORDERED: MORPHINE SULFATE 4 MG/ML INJ IV PRN (16:45)
[2017-12-25] MEDS ORDERED: LEVALBUTEROL INH SCH (16:45)
--- NOTE | 2017-12-25 17:00 | MB ---
cc: Ariella Sim DPM, Laura M DPM DATE: 12/25/2017 CHIEF COMPLAINT: Left foot ulceration with cellulitis. HISTORY OF PRESENT ILLNESS: Mr. Rahman is a 77-year-old patient who has a 3-week history of a left foot wound. He presented to the emergency department today, as he states the area has become increasingly red and sore. He saw his sodder, Dr. Mary Estes, who advised him to come to the emergency department. Dr. Estes had done a skin biopsy in the area, which is now ulcerated. When it became infected, she was treating him with Keflex but had no improvement. The patient states that he has extreme pain, but denies any other septic symptoms such as nausea, vomiting, fever, headaches or chills. PAST MEDICAL HISTORY: Includes cardiovascular disease, coronary artery disease, GERD, history of pneumonia, sciatica and a left lung nodule. PAST SURGICAL HISTORY: Includes a cholecystectomy, bilateral stents in the legs, cataract in the right eye. SOCIAL HISTORY: The patient drinks sporadically. Quit using tobacco in 1981 and is retired. PHYSICAL EXAMINATION: The patient has nonpalpable pulses. Capillary refill time is less than 3 seconds. Gross sensation is intact. The area of infection is warm to touch, but the rest of the leg is cool. There is a small punctate wound on the plantar lateral aspect of the fifth metatarsal head with some slight serous drainage. There is erythema around the wound and extending onto the dorsal foot, just proximal to the mid foot extremely tender to touch. ASSESSMENT: 1. Stage II ulceration with cellulitis. -X-rays and MRI pending. -Wound cultures pending. -Wound care orders placed. -Antibiotic and pain medication orders placed. -The patient has nonpalpable pulses. Would recommend a vascular consultation. -Heel weightbearing only to the left foot. We will continue to monitor the patient closely while in-house. Thank you for this consultation and allowing us to be involved in the patient's care. Ariella Sim DPM LMW/SA , 04:23 PM , 04:59 PM APRIL
[2017-12-25] MEDS: ACETAMINOPHEN/HYDROcodone 325 MG/5 MG TAB PO PRN (17:03)
[2017-12-25] MEDS ORDERED: VANCOMYCIN INJ 1,750 MG in SODIUM CHLORID 0.9% 500 ML INJ 500 ML IV ONE (18:00)
[2017-12-25 18:45] VITALS: BP 152/75; PULSE 85; RESP 20; TEMP 98.2; O2SAT 95
[2017-12-25] MEDS: BACITRACIN TOP OINT 15 GM TUBE TOPICAL SCH (19:14)
[2017-12-25] MEDS ORDERED: GADODIAMIDE PF 287 MG/ML 20 ML VIAL (for RAD MRI) IVCONTRAST ONE (19:26)
[2017-12-25 20:16] VITALS: BP 142/71; PULSE 84; RESP 16; TEMP 98.1; O2SAT 90
[2017-12-25] MEDS: DOXAZOSIN MESYLATE 4 MG TAB PO SCH (20:28)
[2017-12-25] MEDS: FINASTERIDE 5 MG TAB PO SCH (20:28)
[2017-12-25] MEDS: METOPROLOL TARTRATE 25 MG TAB PO SCH (20:29)
[2017-12-25] MEDS: ATORVASTATIN 80 MG TAB PO SCH (20:29)
[2017-12-25] MEDS: APIXABAN 5 MG TABLET PO SCH (20:29)
[2017-12-25] MEDS: GABAPENTIN 300 MG CAP PO SCH (20:29)
[2017-12-25] MEDS: PANTOPRAZOLE SOD 20 MG DELAYED RELEASE TAB PO SCH (20:30)
[2017-12-25] MEDS: BUDESONIDE-FORMOTEROL 80/4.5 MCG INHALER INH SCH (20:32)
[2017-12-26 00:04] VITALS: BP 188/85; PULSE 89; RESP 16; TEMP 98.6; O2SAT 87; O2SAT 92
[2017-12-26] MEDS: SODIUM CHLOR 0.9% 1000 ML INJ 1,000 ML IV SCH ×2 (02:26→12:11)
[2017-12-26 04:19] VITALS: BP 182/79; PULSE 84; RESP 16; TEMP 98.6; O2SAT 95
--- NOTE | 2017-12-26 07:29 | HHI.PR ---
Subjective Remarks afebrile- no pain when laying down and still but patient complains of rushing pain on the foot when he gets up and moves around [facility]- same - but of rubor type Objective Vitals Vital Signs Date Time Temp Pulse Resp B/P (MAP) Pulse Ox O2 Delivery O2 Flow Rate FiO2 12/26/17 04:19 98.6 84 16 182/79 (113) 95 12/26/17 00:04 98.6 89 16 188/85 (119) 92 12/25/17 22:30 16 12/25/17 20:16 98.1 84 16 142/71 (94) 90 12/25/17 18:45 98.2 85 20 152/75 (100) 95 12/25/17 10:05 98.0 78 18 156/70 (98) 97 I/O 12/25/17 12/25/17 12/25/17 12/26/17 12/26/17 12/26/17 07:00 15:00 23:00 07:00 15:00 23:00 Intake Total 100 ml 600 ml Output Total 400 ml 200 ml Balance 100 ml 200 ml -200 ml Intake IV Total 100 ml 600 ml Output Urine Total 400 ml 200 ml Result Diagram: 12/25/17 1122 12/25/17 1122 Imaging Last Impressions Foot X-Ray 12/25/17 0000 Signed Impressions: Service Date/Time: Monday, December 25, 2017 16:16 - CONCLUSION: No acute bony findings Jeff Goodman MD Objective Remarks awake and alert, no acute distress anicteric no nuchal rigidity lungs- no rales irregularly irregular rhythm abdomen soft ++ femoral pulses left foot- + erythema- rubor type, open wound left lateral aspect just below the 5th metatrsal area- dry, tender to touch no swelling, faint DP foot warm to touch A/P Assessment and Plan 77-year-old male presenting with Left foot infected wound with cellulitis rule out abscess rule out osteomyelitis failed outpatient antibiotic treatment MRI of the foot to rule out any deeper soft tissue involvement- pending As needed pain meds ID consulted. ESR only slightly elevated. CRP markedly elevated Podiatry ff. . Vascular surgery consult on Vancomycin- pharmacy ff cultures pending History of PVD-- - history of multiple stents placed both LE in the past- 15 years ago get Vascular consult- for recommendations History of hypertension- some occasional elevated readings History of atrial fibrillation rate controlled. Hyperlipidemia Continue on cardiac meds Lopressor Cardura Eliquis and statins adjust meds. prn clondiine. consider adding CCB BPH. Continue on Cardura and Proscar GERD continue on omeprazole Neuropathy. Continue on gabapentin DVT prophylaxis patient on Eliquis Patient on PPI for GERD Juan J Will MD December 26, 2017 07:29
[2017-12-26] MEDS ORDERED: VANCOMYCIN INJ 1,000 MG in SODIUM CHLOR 0.9% 250 ML INJ 250 ML IV SCH (07:45)
[2017-12-26 08:55] VITALS: BP 199/93; PULSE 85; RESP 18; TEMP 98.8; O2SAT 93
[2017-12-26] MEDS: MULTIVITAMIN TAB PO SCH (09:08)
[2017-12-26] MEDS: APIXABAN 5 MG TABLET PO SCH ×2 (09:09→21:30)
[2017-12-26] MEDS: GABAPENTIN 300 MG CAP PO SCH ×2 (09:09→21:30)
[2017-12-26] MEDS: BACITRACIN TOP OINT 15 GM TUBE TOPICAL SCH (09:09)
[2017-12-26] MEDS: METOPROLOL TARTRATE 25 MG TAB PO SCH ×2 (09:09→21:30)
[2017-12-26] MEDS: TIOTROPIUM BROMIDE 18 MCG INH INH SCH (09:10)
[2017-12-26] MEDS: BUDESONIDE-FORMOTEROL 80/4.5 MCG INHALER INH SCH ×2 (09:16→21:32)
[2017-12-26] MEDS: ACETAMINOPHEN/HYDROcodone 325 MG/5 MG TAB PO PRN (09:24)
--- NOTE | 2017-12-26 11:57 | RADRPT ---
EXAM DATE/TIME: 12/25/2017 17:36 [facility] COMPARISON: FOOT LEFT COMPLETE ([id number]), December 25, 2017, 16:16. INDICATIONS : Osteomyelitis. CONTRAST: 18 cc Omniscan (gadodiamide) IV MEDICAL HISTORY : Cardiovascular disease SURGICAL HISTORY : Cholecystectomy. Coronary artery stent. Hernia. Aortic valve replacement. ENCOUNTER: Initial ACUITY: 1 day PAIN SCORE: 7/10 LOCATION: Left foot. TECHNIQUE: Multiplanar, multisequence MRI examination was performed without contrast and after the intravenous a dministration of gadolinium. Wound at plantar surface around the head of the fifth metatarsal with s ynovitis. FINDINGS: There is generalized edema in the subcutaneous tissues centered around the fifth metatarsal. Small 1 cm fluid collection is seen just beneath the head of the fifth metatarsal without foreign body. The re is no marrow edema to suggest osteomyelitis. There is artifactually increased signal across the h gio of the second third fourth and fifth metatarsals. fifth CONCLUSION: Saline should very small plantar fluid collection just above in the fifth metatarsal that does not ex tend into the deep tissues. No osteoarthritis. No foreign body identified. Sigifredo Kruse MD FACR on December 26, 2017 at 11:51 Board Certified Radiologist. This report was verified electronically.
[2017-12-26 12:43] VITALS: BP 137/68; PULSE 71; RESP 18; TEMP 98.6; O2SAT 94
[2017-12-26] MEDS ORDERED: IOHEXOL 350 MG/ML 10 ML VIAL (for RAD DIAG) IVCONTRAST ONE (16:12)
--- NOTE | 2017-12-26 16:25 | RADRPT ---
EXAM DATE/TIME: 12/26/2017 14:48 [facility] COMPARISON: No previous studies available for comparison. INDICATIONS : Ulcer left foot IV CONTRAST: 90 cc Omnipaque 350 (iohexol) IV RADIATION DOSE: 18.54 CTDIvol (mGy) MEDICAL HISTORY : Cardiovascular disease. Carcinoma, lung. Bilateral stent in legs SURGICAL HISTORY : Aortic valve replacement ENCOUNTER: Initial ACUITY: 1 day PAIN SCALE: 6/10 LOCATION: Left Runoff TECHNIQUE: Volumetric scanning was performed using a multi-row detector CT scanner. The data was post processed with a variety of visualization algorithms including full volume maximum intensity projection, multi -planar sliding thin slab reformation, curved planar reformation, and surface rendering techniques. Using automated exposure control and adjustment of the mA and/or kV according to patient size, radiat ion dose was kept as low as reasonably achievable to obtain optimal diagnostic quality images. DICO M format image data is available electronically for review and comparison. FINDINGS: Abdominal aorta: Extensive vascular calcifications are present in the non-dilated abdominal aorta. Significant calcif ications are seen at the origin of the celiac. Large amount of heavy calcific bolus is seen in the S MA from its origin extending 5 cm distal. Hemodynamically significant right renal artery stenosis is present. Borderline significant left renal artery stenosis is present. Circumferential dense calci fication is seen around the distal aorta. Right lower extremity: Extensive calcification is seen at the origin of the right common extending through the external farhana c sparing the distal external iliac. Dense calcific plaque is seen at the origin of both the superfi cial femoral artery and the profunda. Extensive calcific plaque is seen down the distal superficial femoral artery which is the most part patent but compromised. The most significant plaque is present at the adductor hiatus. Density calcified plaque is seen in the popliteal artery with very little p atent [place] vessel evident. Short segment focal occlusion is seen just above the knee. Moderate pl aque burden is seen below the trifurcation with the posterior tibial artery providing straight line r unoff to the foot with minimal plantar arch identified. Left lower extremity: Short segment focal occlusion is present origin of the superficial femoral artery with extensive calc ific plaque throughout its distal course worse at the adductor hiatus where the stent is present. De nsity calcified popliteal artery is present with very little flow noted. The posterior tibial artery does provide interrupted but compromised runoff to the plantar arch. The anterior tibial artery ant erior artery did not make it to the ankle. Source data: Density calcified aortic valve annulus is noted. There is no renal mass. There is no adenopathy. S ignificant SMA inflow disease is present. CONCLUSION: Significant atherosclerotic vascular disease with very poor runoff below the common femorals. Sigifredo Kruse MD FACR on December 26, 2017 at 16:13 Board Certified Radiologist. This report was verified electronically.
[2017-12-26 16:40] VITALS: BP 211/97; PULSE 89; RESP 18; TEMP 98.6; O2SAT 92
[2017-12-26] MEDS: PIPERACIL-TAZO 4.5 GM PREMIX 100 ML IV SCH (17:00)
[2017-12-26] MEDS ORDERED: VANCOMYCIN 1,500 MG/NS 500 ML IV SCH ×2 (18:00)
--- NOTE | 2017-12-26 18:33 | EKG ---
Date Performed: 12/25/2017 Time Performed: 15:36:30 PTAGE: 77 years EKG: ATRIAL FIBRILLATION RIGHT BUNDLE BRANCH BLOCK ABNORMAL ECG PREVIOUS TRACING : 06/23/2017 15.47 Compared to previous tracing, SR no longer present DOCTOR: Janae Hayward Interpretating Date/Time 12/26/2017 18:31:33
--- NOTE | 2017-12-26 19:07 | MB ---
cc: Tab Velázquez MD, Franklyn F MD DATE: 12/26/2017 REQUESTING PHYSICIAN: Dr. Will REASON FOR CONSULTATION: Left foot infection. Failed outpatient antibiotic. HISTORY OF PRESENT ILLNESS: This is a 77-year-old white male who presented to the Emergency Department with redness of his left foot. The patient has been seeing podiatry outpatient. He notes that he had debridement of an ulcer at the lateral aspect of the left foot at the base of the 5th toe. He states that it was debrided about 4 days before he came to the Emergency Department. He states that he was put on ciprofloxacin. He notes that the redness of his left foot has been present for about a week. It is reported that a skin biopsy was performed at the foot and then it became ulcerated. The patient thinks that he was given ciprofloxacin, but the medical record indicates that he was given Keflex, and did not improve. He denies nausea or vomiting. He is currently shaking and notes that he is cold. He tells me that he is always cold and that he tends to shake whenever he gets cold. He states that he keeps his home temperature around 78 degrees because he gets cold easily. His temperature has been normal here in the Emergency Department. His white blood cell count is normal. A culture taken from the wound yesterday has Pseudomonas aeruginosa. Blood culture has no growth in 1 day. The patient is awake and alert. He is a fair historian. He has been given intravenous vancomycin and he was given a dose of cefazolin yesterday. PAST MEDICAL HISTORY: Hypertension, hyperlipidemia, COPD, BPH, neuropathy, gastroesophageal reflux disease, aortic valve replacement with tissue valve in 2017, peripheral arterial disease, history of stent placement in the lower extremities, cholecystectomy, history of incisional hernia. ALLERGIES: LISINOPRIL. MEDICATIONS 1. Theragran. 2. Spiriva 3. Eliquis. 4. Lipitor. 5. Cardura. 6. Proscar. 7. Neurontin. 8. Lopressor. 8. Symbicort. 9. Protonix. 10. Morphine sulfate. 11. [place] 5 p.r.n. SOCIAL HISTORY: The patient moved to [place] approximately 5 years ago from [place]. No tobacco. Occasional alcohol. No illicit drugs. FAMILY HISTORY: Noncontributory. REVIEW OF SYSTEMS: Significant for tremulousness of the extremities and severe pain in the left foot. Otherwise, negative. PHYSICAL EXAMINATION: GENERAL: This is slender, well-developed male who is in no acute distress. He is awake, alert and oriented. VITAL SIGNS: Temperature 98.6, BP 211/97, respirations 18, heart rate 89. HEENT: Head is atraumatic. Extraocular movements grossly intact. Pupils reactive to light without icterus. Oropharynx: Moist mucosa. No lesions. NECK: Supple without adenopathy. LUNGS: Clear to auscultation. CARDIOVASCULAR: Regular S1, S2. No murmurs, rubs or gallops. ABDOMEN: Bowel sounds present. Soft, nontender. RECTAL: Not performed. EXTREMITIES: No clubbing, no cyanosis. The left foot has beefy red, erythematous changes over the dorsum at the base of the second toe all the way to the fifth toe and extending at the dorsum laterally to about mid foot outer end. This is very, very tender on palpation. There is a dried ulcer at the lateral aspect of the foot beyond the fifth toe and great toe has erythema. The distal pulses are diminished. SKIN: No rash. NEUROLOGIC: No gross focal findings. PSYCHIATRIC: The patient is calm and cooperative. LABORATORY DATA: WBCs 7.2, platelets 181. Hemoglobin 14.6. Sedimentation rate 22, creatinine 0.94, BUN 10, sodium 140. C-reactive protein 7.02. IMAGING STUDIES: MRI of the foot showed a small plantar fluid collection just above the fifth metatarsal that does not extend into the deep tissues. IMPRESSION: 1. Cellulitis of the left foot due to Pseudomonas. 2. Left foot ulcer. 3. Peripheral vascular disease. RECOMMENDATIONS: 1. Discontinue vancomycin. 2. Begin piperacillin/tazobactam. 3. Monitor the wound cultures. 4. Monitor clinical status. Thank you for this consultation. I will follow the patient's progress along with you and make further recommendations upon followup if necessary. MD KIRAN Siegel/ , 04:58 PM , 07:06 PM
--- NOTE | 2017-12-26 19:57 | PD.CAR.PN ---
CVT Progress Note Subjective/Hospital Course: Patient seen Full consult TF Osman J Objective: Vital Signs Date Time Temp Pulse Resp B/P (MAP) Pulse Ox O2 Delivery O2 Flow Rate FiO2 12/26/17 16:40 98.6 89 18 211/97 (135) 92 12/26/17 12:43 98.6 71 18 137/68 (91) 94 12/26/17 08:55 98.8 85 18 199/93 (128) 93 12/26/17 04:19 98.6 84 16 182/79 (113) 95 12/26/17 00:04 98.6 89 16 188/85 (119) 92 12/25/17 22:30 16 12/25/17 20:16 98.1 84 16 142/71 (94) 90 Result Diagram: 12/25/17 1122 12/25/17 1122 Abhishek Cruz MD December 26, 2017 19:57
[2017-12-26 20:14] VITALS: BP 200/84; PULSE 111; RESP 16; TEMP 99.5; O2SAT 93
[2017-12-26] MEDS: ATORVASTATIN 80 MG TAB PO SCH (21:30)
[2017-12-26] MEDS: PANTOPRAZOLE SOD 20 MG DELAYED RELEASE TAB PO SCH (21:30)
[2017-12-26] MEDS: DOXAZOSIN MESYLATE 4 MG TAB PO SCH (21:30)
[2017-12-26] MEDS: FINASTERIDE 5 MG TAB PO SCH (21:30)
[2017-12-27] VITALS (11 sets, daily range): BP systolic 135–195; BP diastolic 63–90; PULSE 70–107; RESP 16–20; TEMP 97.9–98.6; O2SAT 92–98
[2017-12-27] MEDS: SODIUM CHLOR 0.9% 1000 ML INJ 1,000 ML IV SCH ×2 (01:13→07:20)
[2017-12-27] MEDS: PIPERACIL-TAZO 4.5 GM PREMIX 100 ML IV SCH ×5 (01:19→23:40)
[2017-12-27] MEDS: ACETAMINOPHEN/HYDROcodone 325 MG/5 MG TAB PO PRN ×4 (01:27→20:00)
[2017-12-27] MEDS: TIOTROPIUM BROMIDE 18 MCG INH INH SCH (08:40)
[2017-12-27] MEDS: METOPROLOL TARTRATE 25 MG TAB PO SCH ×2 (08:40→20:01)
[2017-12-27] MEDS: MULTIVITAMIN TAB PO SCH (08:40)
[2017-12-27] MEDS: GABAPENTIN 300 MG CAP PO SCH ×2 (08:40→20:00)
[2017-12-27] MEDS: BUDESONIDE-FORMOTEROL 80/4.5 MCG INHALER INH SCH ×2 (08:40→20:01)
[2017-12-27] MEDS: APIXABAN 5 MG TABLET PO SCH ×2 (08:40→20:01)
[2017-12-27] MEDS: BACITRACIN TOP OINT 15 GM TUBE TOPICAL SCH (08:41)
--- NOTE | 2017-12-27 08:55 | PD.POD ---
Subjective Podiatric Problems Left foot ulceration. Pt is still extremely sensitive even with light touch, but he states the pain medication helps. He denies any n/v/f/h/c/sob. Pain score: 8 Past Med/Surg/Social History Social History Smoking Status: Former Smoker Objective Vital Signs Vital Signs Date Time Temp Pulse Resp B/P (MAP) Pulse Ox O2 Delivery O2 Flow Rate FiO2 12/27/17 08:28 98.2 96 20 172/77 (108) 98 12/27/17 03:55 98.1 82 16 135/63 (87) 93 12/27/17 02:45 16 12/27/17 00:45 98.3 107 16 160/77 (104) 93 12/26/17 20:14 99.5 111 16 200/84 (122) 93 12/26/17 16:40 98.6 89 18 211/97 (135) 92 12/26/17 12:43 98.6 71 18 137/68 (91) 94 12/26/17 08:55 98.8 85 18 199/93 (128) 93 Coded Allergies: lisinopril (Verified Allergy, Severe, INCREASES HEART RATE, 06/22/17) Exam-Podiatry Remarks Left foot submet 5 ulcer 5mm x5mm x 5mm, hypertrophic borders, slight serous drainage, redness to the dorsal midfoot with out heat and not consistent with cellulitis. Assessment & Plan A/P 1) left foot ulcer with resolving cellulitis - wound cxs with Pseudomonas, ID consult appreciated - MRI shows fluid collection, but it has a direct extension to the open wound, not an abscess -bedside debridement done today -will cont to monitor closely but likely ok to d/c once abx can be determined -heel WBing left foot only Procedures After administration of IV pain medication the left foot submet 5 callus was cleansed with betadine and a #15 scalpel was used to debride to a level of healthy bleeding tissue. Slight about of serous drainage noted. A small corner of a sterile 4x4s was packed into the wound. Bacitracin was applied to the edges of the wound and a proper bandage was applied. Ariella Sim DPM December 27, 2017 08:55
--- NOTE | 2017-12-27 13:35 | HHI.PR ---
Subjective Remarks Nursing denies any deterioration since last night. Patient apparently is tolerating pain with p.o. pain medication. Per nursing vascular surgery plans for intervention tomorrow. Objective Vital Signs Date Time Temp Pulse Resp B/P (MAP) Pulse Ox O2 Delivery O2 Flow Rate FiO2 12/27/17 12:52 98.2 70 20 168/80 (109) 96 12/27/17 08:28 98.2 96 20 172/77 (108) 98 12/27/17 03:55 98.1 82 16 135/63 (87) 93 12/27/17 02:45 16 12/27/17 00:45 98.3 107 16 160/77 (104) 93 12/26/17 20:14 99.5 111 16 200/84 (122) 93 12/26/17 16:40 98.6 89 18 211/97 (135) 92 I/O 12/26/17 12/26/17 12/26/17 12/27/17 12/27/17 12/27/17 07:00 15:00 23:00 07:00 15:00 23:00 Intake Total 100 ml Output Total 200 ml 1850 ml 900 ml Balance -200 ml -1850 ml -800 ml Intake IV Total 100 ml Output Urine Total 200 ml 1850 ml 900 ml Result Diagram: 12/25/17 1122 12/25/17 1122 Objective Remarks Left foot and wound care dressing, mild erythema is noted protruding from underneath the gauze dressing. Patient was otherwise awake alert, no acute distress lung sounds are clear bilaterally, heart sounds regular rhythm, no murmurs A/P Assessment and Plan 77-year-old male presenting with Left foot infected wound with cellulitis -MRI of the foot with Pseudomonas cellulitis per podiatry shows no new abscess, just pre-existing infection, -Discontinuing vancomycin, continue Zosyn per infectious disease Peripheral arterial disease -Continue with Lipitor 80 mg, anticipate vascular surgery intervention tomorrow given CTA showing active dx - bmp in am given post contrast study History of hypertension- some occasional elevated readings History of atrial fibrillation rate controlled. Hyperlipidemia Continue on cardiac meds Lopressor Cardura Eliquis and statins BPH. Continue on Cardura and Proscar GERD continue on omeprazole Neuropathy. Continue on gabapentin DVT prophylaxis patient on Eliquis Patient on PPI for GERD Casper Sandoval MD December 27, 2017 13:35
--- NOTE | 2017-12-27 13:58 | MB ---
cc: Abhishek Cruz MD DATE: 12/27/2017 REASON FOR CONSULTATION: Ischemia of both legs, left more than right. HISTORY OF PRESENT ILLNESS: This 77-year-old gentleman with multiple medical problems that presented to the emergency room with rubor and pain in his left foot. The patient has been seen by podiatry as outpatient, but now he comes as an inpatient. He had the debridement of an ulcer of the lateral aspect of the left foot and base of the fifth toe. Question arises about his vascular status. PAST MEDICAL HISTORY: Complex and includes hypertension, hyperlipidemia, COPD, neuropathy, aortic valve replacement, TAVR in 06/2017, peripheral artery disease. PAST SURGICAL HISTORY: Stent, aortic valve replacement as above noted, stent placements in both extremities several years ago, cholecystectomy, incisional hernia repair. MEDICATIONS: Can be found on the record, they are multiple and include anticoagulants. SOCIAL HISTORY: The patient moved down from [place]. Does not smoke, does not drink. PHYSICAL EXAMINATION: GENERAL: Reveals a very thin, weak appearing, 77-year-old gentleman. HEENT: Normocephalic. No trauma to the head. Pupils are equal, reactive. Extraocular muscles intact. NECK: Bilateral carotid pulses. Faint left-sided bruit, but a carotid ultrasound done a few months ago did not reveal any hemodynamically significant stenosis. HEART: Regular rhythm. CHEST: Bilateral breath sounds, decreased over both lung [place]. The patient has significant middle to end-stage COPD with a pulmonary cachexia, loss of chest wall musculature and clearly impaired PaO2, FiO2 gradients. ABDOMEN: Soft. No rebound, no guarding, no masses. EXTREMITIES: The patient has atrophy of both lower extremities. Muscles are thinned out and weak. He has no palpable femoral pulses. No dopplerable popliteal pulses and a weak dorsalis pedis bilateral. Posterior tibial I cannot even detect on either foot. Left foot is ruborous with some dark red discoloration over the dorsum of the foot and above noted changes. The capillary refill is decreased in both feet. NEUROLOGIC: The patient is grossly intact. IMPRESSION/PLAN: I reviewed laboratory and diagnostic procedures and CTA. This gentleman has severe peripheral vascular disease with a very poor inflow and calcific changes which are extremely extensive throughout the aorta and iliac arteries. Unfortunately, I believe that the patient developed calcific changes before he could develop adequate collateral circulation and that is attributing more to this problem. I discussed this with Dr. Silvestre Kruse and we both agree on this pathologic entity. As far as the outflow is concerned, the common iliac arteries are nearly completely occluded and SFAs are nearly completely occluded proximally. The patient is distal in the left leg, very tight stenosis of the popliteal artery and then essentially 1 vessel runoff. On the right side, situation is equally bad. At this point, we will first address the left side. This gentleman is obviously not a candidate for aortobifemoral bypass, fore he could not tolerate this. Axillobifemoral bypass remains an option, but I believe in this situation the least invasive thing we can do is a common femoral and deep femoral endarterectomy on the left side and then balloon angioplasty and arthrectomy of the popliteal artery to open that up. We will do that in the endovascular suite. Right leg appears equally bad, but is not causing problems right now, so I would leave that for sometime later. Thank you very much for the referral. MD BASHIR Rogers/TARA , 01:11 PM , 01:57 PM
[2017-12-27] MEDS: FINASTERIDE 5 MG TAB PO SCH (20:00)
[2017-12-27] MEDS: PANTOPRAZOLE SOD 20 MG DELAYED RELEASE TAB PO SCH (20:00)
[2017-12-27] MEDS: DOXAZOSIN MESYLATE 4 MG TAB PO SCH (20:00)
[2017-12-27] MEDS: cloNIDine HCL 0.1 MG TAB PO PRN (20:00)
[2017-12-27] MEDS: ATORVASTATIN 80 MG TAB PO SCH (20:01)
[2017-12-28] VITALS (14 sets, daily range): BP systolic 117–175; BP diastolic 54–85; PULSE 81–110; RESP 16–20; TEMP 97.7–100.2; O2SAT 92–96
[2017-12-28] MEDS: SODIUM CHLOR 0.9% 1000 ML INJ 1,000 ML IV SCH ×2 (00:01→22:19)
[2017-12-28] MEDS: RESP: ALBUTEROL 2.5 MG/IPRATROPIUM 0.5 MG NEB (PRN) NEB ×2 (01:57→17:05)
[2017-12-28] MEDS: PIPERACIL-TAZO 4.5 GM PREMIX 100 ML IV SCH ×4 (04:19→22:21)
[2017-12-28 07:39] LABS: CALCIUM 8.2 MG/DL (8.5-10.1); CREATININE 0.88 MG/DL (0.60-1.30)
[2017-12-28] MEDS: BUDESONIDE-FORMOTEROL 80/4.5 MCG INHALER INH SCH ×2 (08:15→22:12)
[2017-12-28] MEDS: MULTIVITAMIN TAB PO SCH (08:16)
[2017-12-28] MEDS: GABAPENTIN 300 MG CAP PO SCH ×2 (08:16→22:10)
[2017-12-28] MEDS: TIOTROPIUM BROMIDE 18 MCG INH INH SCH (08:16)
[2017-12-28] MEDS: BACITRACIN TOP OINT 15 GM TUBE TOPICAL SCH (08:16)
[2017-12-28] MEDS: APIXABAN 5 MG TABLET PO SCH (08:16)
[2017-12-28] MEDS: METOPROLOL TARTRATE 25 MG TAB PO SCH ×2 (08:17→22:10)
[2017-12-28] MEDS: RESP: ALBUTEROL 2.5 MG/IPRATROPIUM 0.5 MG NEB (SCH) NEB ×3 (08:31→19:25)
--- NOTE | 2017-12-28 08:52 | PD.POD ---
Subjective Pain score: 8 Remarks Left foot pain remains Past Med/Surg/Social History Social History Smoking Status: Former Smoker Objective Vital Signs Vital Signs Date Time Temp Pulse Resp B/P (MAP) Pulse Ox O2 Delivery O2 Flow Rate FiO2 12/28/17 08:33 94 12/28/17 08:00 99.7 84 16 167/85 (112) 92 Automatic Cuff 12/28/17 07:37 Room Air 12/28/17 04:24 Room Air 12/28/17 04:24 153/63 (93) 96 12/28/17 04:07 98.3 83 20 175/84 (114) 92 12/28/17 04:00 86 12/28/17 01:58 94 Nasal Cannula 2.00 12/28/17 01:40 92 Nasal Cannula 2.00 12/28/17 00:00 97.7 92 16 136/72 (93) 92 12/27/17 20:04 98.1 87 20 195/87 (123) 92 12/27/17 20:00 91 12/27/17 19:30 97 12/27/17 19:00 92 Room Air 12/27/17 18:30 97.9 88 18 186/87 (120) 98 12/27/17 17:31 146/84 (104) 12/27/17 17:19 98.6 70 20 171/78 (109) 95 12/27/17 13:00 140/90 (107) 12/27/17 12:52 98.2 70 20 168/80 (109) 96 Coded Allergies: lisinopril (Verified Allergy, Severe, INCREASES HEART RATE, 06/22/17) Medications and IVs Administered Medications Medications (Trade) Dose Ordered Sig/Kvein Route PRN Reason Start Time Stop Time Status Last Admin Dose Admin Sodium Chloride 1,000 ml @ 60 mls/hr [id number] IV 12/25/17 11:30 12/28/17 00:01 Bacitracin (Baciguent Oint) 1 applic DAILY TOPICAL 12/25/17 18:00 12/28/17 08:16 Acetaminophen/ Hydrocodone Bitart ([place] 5-325 Mg) 2 tab Q4H PRN PO PAIN SCALE 5 TO 7 12/25/17 16:30 12/27/17 20:00 Apixaban (Eliquis) 5 mg BID PO 12/25/17 21:00 12/28/17 08:16 Atorvastatin Calcium (Lipitor) 80 mg HS PO 12/25/17 21:00 12/27/17 20:01 Doxazosin Mesylate (Cardura) 4 mg HS PO 12/25/17 21:00 12/27/17 20:00 Finasteride (Proscar) 5 mg HS PO 12/25/17 21:00 12/27/17 20:00 Gabapentin (Neurontin) 300 mg BID PO 12/25/17 21:00 12/28/17 08:16 Metoprolol Tartrate (Lopressor) 25 mg BID PO 12/25/17 21:00 12/28/17 08:17 Tiotropium [place] (Spiriva Inh) 18 mcg DAILY INH 12/26/17 09:00 12/28/17 08:16 Budesonide/ Formoterol Fumarate (Symbicort 80-4.5 Mcg Inh) 2 puff BID INH 12/25/17 21:00 12/28/17 08:15 Multivitamins (Theragran) 1 tab DAILY PO 12/26/17 09:00 12/28/17 08:16 Pantoprazole Sodium (Protonix) 20 mg HS PO 12/25/17 21:00 12/27/17 20:00 Piperacillin Sod/ Tazobactam Sod 100 ml @ 200 mls/hr Q6H IV 12/26/17 17:00 12/28/17 04:19 Clonidine (Catapres) 0.1 mg Q6H PRN PO SBP>160, DBP>90 12/26/17 17:15 12/27/17 20:00 Albuterol/ Ipratropium (Duoneb Neb) 1 ampule Q2HR NEB PRN NEB sob 12/28/17 02:00 12/28/17 01:57 Albuterol/ Ipratropium (Duoneb Neb) 1 ampule Q6HR WHILE AWAKE NEB NEB 12/28/17 08:00 12/28/17 08:31 Other Results Laboratory Tests Test 12/28/17 04:30 Blood Urea Nitrogen 7 MG/DL Creatinine 0.88 MG/DL Random Glucose 87 MG/DL Calcium Level 8.2 MG/DL Sodium Level 142 MEQ/L Potassium Level 3.5 MEQ/L Chloride Level 109 MEQ/L Carbon Dioxide Level 21.0 MEQ/L Anion Gap 12 MEQ/L Estimat Glomerular Filtration Rate 84 ML/MIN Microbiology Date/Time Source Procedure Growth Status 12/25/17 11:22 Blood Peripheral Aerobic Blood Culture - Preliminary NO GROWTH IN 2 DAYS Resulted 12/25/17 11:22 Blood Peripheral Anaerobic Blood Culture - Preliminary NO GROWTH IN 2 DAYS Resulted 12/25/17 11:17 Blood Peripheral Aerobic Blood Culture - Preliminary NO GROWTH IN 2 DAYS Resulted 12/25/17 11:17 Blood Peripheral Anaerobic Blood Culture - Preliminary NO GROWTH IN 2 DAYS Resulted 12/25/17 11:22 Wound Foot Gram Stain - Final Complete 12/25/17 11:22 Wound Culture - Final Pseudomonas Aeruginosa Complete Last 72 hours Impressions Aorta w/Runoff CTA 12/26/17 0000 Signed Impressions: Service Date/Time: Thursday, December 26, 2017 14:48 - CONCLUSION: Significant atherosclerotic vascular disease with very poor runoff below the common femorals. Sigifredo Kruse MD FACR Exam-Podiatry Remarks Left lower extremity examined: Plantar fifth metatarsal head hypertrophic ulceration with mild serous drainage , impressive redness and rubor to the dorsum of the foot however no soft tissue emphysema minimal edema, redness extends just to the patient's hindfoot ankle area, range of motion is somewhat limited by pain. Pedal pulses are hard to palpate, capillary refill time remains to the distal digits, sensation intact Constitutional General appearance: comfortable Nutritional status: normal Orientation: alert and oriented x3 Assessment & Plan A/P Left foot ulcer cellulitis PVD. Status post bedside procedure per Dr. Sim. Culture positive for Pseudomonas, dry sterile bandage appears to have minimal drainage, awaiting vascular intervention. No further plans for surgery at this point until circulation has improved. Will follow-up in the next 2-3 days, bandage orders for nursing Eduin Rose DPM December 28, 2017 08:52
[2017-12-28] MEDS: ACETAMINOPHEN/HYDROcodone 325 MG/5 MG TAB PO PRN ×3 (10:14→22:21)
--- NOTE | 2017-12-28 10:26 | HHI.PR ---
Subjective Remarks Nursing denies any deterioration since last night. Patient apparently is tolerating pain with p.o. pain medication. Patient is eating this morning, no clear schedule of one vascular intervention is scheduled for. Objective Vital Signs Date Time Temp Pulse Resp B/P (MAP) Pulse Ox O2 Delivery O2 Flow Rate FiO2 12/28/17 08:33 94 12/28/17 08:00 92 12/28/17 08:00 99.7 84 16 167/85 (112) 92 Automatic Cuff 12/28/17 07:37 Room Air 12/28/17 04:24 Room Air 12/28/17 04:24 153/63 (93) 96 12/28/17 04:07 98.3 83 20 175/84 (114) 92 12/28/17 04:00 86 12/28/17 01:58 94 Nasal Cannula 2.00 12/28/17 01:40 92 Nasal Cannula 2.00 12/28/17 00:00 97.7 92 16 136/72 (93) 92 12/27/17 20:04 98.1 87 20 195/87 (123) 92 12/27/17 20:00 91 12/27/17 19:30 97 12/27/17 19:00 92 Room Air 12/27/17 18:30 97.9 88 18 186/87 (120) 98 12/27/17 17:31 146/84 (104) 12/27/17 17:19 98.6 70 20 171/78 (109) 95 12/27/17 13:00 140/90 (107) 12/27/17 12:52 98.2 70 20 168/80 (109) 96 I/O 12/27/17 12/27/17 12/27/17 12/28/17 12/28/17 12/28/17 07:00 15:00 23:00 07:00 15:00 23:00 Intake Total 100 ml 100 ml 1099 ml Output Total 900 ml 1050 ml 400 ml Balance -800 ml -950 ml 699 ml Intake IV Total 100 ml 100 ml 1099 ml Output Urine Total 900 ml 1050 ml 400 ml Result Diagram: 12/25/17 1122 12/28/17 0430 Objective Remarks Left foot and wound care dressing, mild erythema is noted protruding from underneath the gauze dressing. Patient was otherwise awake alert A/P Assessment and Plan 77-year-old male presenting with Left foot infected wound with cellulitis -Status post bedside debridement, MRI of the foot with Pseudomonas cellulitis per podiatry shows no new abscess, just pre-existing infection, awaiting vascular surgery intervention prior to any further debridement from podiatry -continue Zosyn per infectious disease Peripheral arterial disease -Continue with Lipitor 80 mg, anticipate vascular surgery intervention -BMP unremarked History of hypertension- some occasional elevated readings History of atrial fibrillation rate controlled. Hyperlipidemia Continue on cardiac meds Lopressor Cardura Eliquis and statins BPH. Continue on Cardura and Proscar GERD continue on omeprazole Neuropathy. Continue on gabapentin DVT prophylaxis patient on Eliquis Patient on PPI for GERD Addendum: had some hemoptysis, CXR ordered Casper Sandoval MD December 28, 2017 10:26
--- NOTE | 2017-12-28 13:39 | PD.CAR.PN ---
CVT Progress Note Subjective/Hospital Course: Patient seen Full consult MARY Pete 12/28/2017 I have reviewed the CTA on this patient and compared to clinical findings. 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 Both groins i.e. distal external iliac arteries, common femoral arteries and superficial femoral arteries are nearly occluded In addition patient has severe disease throughout the SFA bilaterally and then into the popliteal with essentially single vessel runoff to the foot and interrupted trifurcation vessels Options here a very limited. Improving the inflow would require either aortobifemoral bypass for which patient is clearly not a candidate or axillo- bifemoral bypass for which patient is a poor candidate Even then the stenotic areas are throughout the both outflow vessels and this is flow limiting factor. Given the patient's age, frail clinical status and comorbidities, I believe the best way to deal with this would be left common femoral and superficial femoral artery endarterectomy and endovascular approach to SFA and popliteal artery by combination of arthrectomy and balloon angioplasty. Right side does not look any better but is currently not a problem clinically The above we will give the patient reasonable chance of at least temporizing the further ischemia to the foot and give him a chance to keep the foot. There is still a high likelihood that patient will eventually require below- knee amputation no matter what we do and have explained to the patient in detail We will proceed with open and endovascular component of surgery tomorrow Objective: Vital Signs Date Time Temp Pulse Resp B/P (MAP) Pulse Ox O2 Delivery O2 Flow Rate FiO2 12/28/17 12:00 99.0 89 16 134/68 (90) 92 12/28/17 12:00 85 12/28/17 08:33 94 12/28/17 08:00 92 12/28/17 08:00 99.7 84 16 167/85 (112) 92 Automatic Cuff 12/28/17 07:37 Room Air 12/28/17 04:24 Room Air 12/28/17 04:24 153/63 (93) 96 12/28/17 04:07 98.3 83 20 175/84 (114) 92 12/28/17 04:00 86 12/28/17 01:58 94 Nasal Cannula 2.00 12/28/17 01:40 92 Nasal Cannula 2.00 12/28/17 00:00 97.7 92 16 136/72 (93) 92 12/27/17 20:04 98.1 87 20 195/87 (123) 92 12/27/17 20:00 91 12/27/17 19:30 97 12/27/17 19:00 92 Room Air 12/27/17 18:30 97.9 88 18 186/87 (120) 98 12/27/17 17:31 146/84 (104) 12/27/17 17:19 98.6 70 20 171/78 (109) 95 Labs: Laboratory Tests Test 12/28/17 04:30 Blood Urea Nitrogen 7 MG/DL (7-18) Creatinine 0.88 MG/DL (0.60-1.30) Random Glucose 87 MG/DL (74-106) Calcium Level 8.2 MG/DL (8.5-10.1) Sodium Level 142 MEQ/L (136-145) Potassium Level 3.5 MEQ/L (3.5-5.1) Chloride Level 109 MEQ/L (98-107) Carbon Dioxide Level 21.0 MEQ/L (21.0-32.0) Anion Gap 12 MEQ/L (5-15) Estimat Glomerular Filtration Rate 84 ML/MIN (>89) Result Diagram: 12/25/17 1122 12/28/17 0430 Abhishek Cruz MD December 28, 2017 13:39
[2017-12-28] MEDS ORDERED: CHLORHEXIDINE GLUCONATE 2 % 1 PACK (2 CLOTHS) TOPICAL PRN (17:30)
[2017-12-28] MEDS ORDERED: SODIUM CHLORID 0.9% 500 ML IV PRN (17:30)
[2017-12-28] MEDS ORDERED: METOPROLOL TARTRATE 25 MG TAB PO PRN (17:30)
[2017-12-28] MEDS ORDERED: LACTATED RINGER'S 1000 ML IV PRN (17:30)
[2017-12-28] MEDS ORDERED: POVIDONE IODINE 5% (ANTISEPSIS KIT) 4 APPLICATIONS EACH NARE PRN (17:30)
[2017-12-28] MEDS ORDERED: PHARMACY ORDERED LAB ONE (17:45)
--- NOTE | 2017-12-28 19:08 | HHI.IDPN ---
Note Infectious Disease Note Patient notes pain in the left foot. Says that the pain medicine help with relieving the pain. No fever. No nausea. Due to go for revascularization procedure tomorrow. Continues to have tremors. Feels cold. Denies chills. PAST MEDICAL HISTORY: Hypertension, hyperlipidemia, COPD, BPH, neuropathy, gastroesophageal reflux disease, aortic valve replacement with tissue valve in 2017, peripheral arterial disease, history of stent placement in the lower extremities, cholecystectomy, history of incisional hernia. ALLERGIES: LISINOPRIL. MEDICATIONS Current Medications Medications (Trade) Dose Ordered Sig/Kevin Route PRN Reason Start Time Stop Time Status Last Admin Dose Admin Sodium Chloride 1,000 ml @ 60 mls/hr [id number] IV 12/25/17 11:30 12/28/17 00:01 Bacitracin (Baciguent Oint) 1 applic DAILY TOPICAL 12/25/17 18:00 12/28/17 08:16 Acetaminophen/ Hydrocodone Bitart ([place] 5-325 Mg) 1 tab Q4H PRN PO PAIN SCALE 1 TO 4 12/25/17 16:30 Acetaminophen/ Hydrocodone Bitart ([place] 5-325 Mg) 2 tab Q4H PRN PO PAIN SCALE 5 TO 7 12/25/17 16:30 12/28/17 18:05 Apixaban (Eliquis) 5 mg BID PO 12/25/17 21:00 Future Hold 12/28/17 08:16 Atorvastatin Calcium (Lipitor) 80 mg HS PO 12/25/17 21:00 12/27/17 20:01 Doxazosin Mesylate (Cardura) 4 mg HS PO 12/25/17 21:00 12/27/17 20:00 Finasteride (Proscar) 5 mg HS PO 12/25/17 21:00 12/27/17 20:00 Gabapentin (Neurontin) 300 mg BID PO 12/25/17 21:00 12/28/17 08:16 Metoprolol Tartrate (Lopressor) 25 mg BID PO 12/25/17 21:00 12/28/17 08:17 Tiotropium [place] (Spiriva Inh) 18 mcg DAILY INH 12/26/17 09:00 12/28/17 08:16 Budesonide/ Formoterol Fumarate (Symbicort 80-4.5 Mcg Inh) 2 puff BID INH 12/25/17 21:00 12/28/17 08:15 Patient Own Medication PT OWN MED: (Levalbuterol 15 GM ... Q4H INH 12/25/17 16:45 Future Hold Multivitamins (Theragran) 1 tab DAILY PO 12/26/17 09:00 12/28/17 08:16 Pantoprazole Sodium (Protonix) 20 mg HS PO 12/25/17 21:00 12/27/17 20:00 Piperacillin Sod/ Tazobactam Sod 100 ml @ 200 mls/hr Q6H IV 12/26/17 17:00 12/28/17 16:43 Clonidine (Catapres) 0.1 mg Q6H PRN PO SBP>160, DBP>90 12/26/17 17:15 12/27/17 20:00 Albuterol/ Ipratropium (Duoneb Neb) 1 ampule Q2HR NEB PRN NEB sob 12/28/17 02:00 12/28/17 17:05 Albuterol/ Ipratropium (Duoneb Neb) 1 ampule Q6HR WHILE AWAKE NEB NEB 12/28/17 08:00 12/28/17 12:23 Lactated Ringer's 1,000 ml @ 30 mls/hr Q24H PRN IV SEE LABEL COMMENTS 12/28/17 17:30 12/31/17 17:29 Sodium Chloride 500 ml @ 30 mls/hr [id number] PRN IV SEE LABEL COMMENTS 12/28/17 17:30 12/31/17 17:29 Metoprolol Tartrate (Lopressor) 25 mg STRAIGHT EDGER PRN PO SEE LABEL COMMENTS 12/28/17 17:30 12/31/17 17:29 Povidone Iodine (Betadine 5% Antisepsis Kit) 1 applic STRAIGHT EDGER PRN EACH NARE SEE LABEL COMMENTS 12/28/17 17:30 12/31/17 17:29 Chlorhexidine Gluconate (Chlorhexidine 2% Cloth) 3 pack STRAIGHT EDGER PRN TOPICAL SEE LABEL COMMENTS 12/28/17 17:30 12/31/17 17:29 SOCIAL HISTORY: The patient moved to [place] approximately 5 years ago from [place]. No tobacco. Occasional alcohol. No illicit drugs. FAMILY HISTORY: Noncontributory. Objective: Vital Signs Date Time Temp Pulse Resp B/P (MAP) Pulse Ox O2 Delivery O2 Flow Rate FiO2 12/28/17 16:00 98.1 89 16 170/79 (109) 94 12/28/17 16:00 84 12/28/17 12:00 99.0 89 16 134/68 (90) 92 12/28/17 12:00 85 12/28/17 08:33 94 12/28/17 08:00 92 12/28/17 08:00 99.7 84 16 167/85 (112) 92 Automatic Cuff 12/28/17 07:37 Room Air 12/28/17 04:24 Room Air 12/28/17 04:24 153/63 (93) 96 12/28/17 04:07 98.3 83 20 175/84 (114) 92 12/28/17 04:00 86 12/28/17 01:58 94 Nasal Cannula 2.00 12/28/17 01:40 92 Nasal Cannula 2.00 12/28/17 00:00 97.7 92 16 136/72 (93) 92 12/27/17 20:04 98.1 87 20 195/87 (123) 92 12/27/17 20:00 91 12/27/17 19:30 97 Laboratory Tests Test 12/28/17 04:30 Blood Urea Nitrogen 7 MG/DL Creatinine 0.88 MG/DL Random Glucose 87 MG/DL Calcium Level 8.2 MG/DL Sodium Level 142 MEQ/L Potassium Level 3.5 MEQ/L Chloride Level 109 MEQ/L Carbon Dioxide Level 21.0 MEQ/L Anion Gap 12 MEQ/L Estimat Glomerular Filtration Rate 84 ML/MIN Imaging: Aorta w/Runoff CTA 12/26/17 0000 Signed Impressions: Service Date/Time: Tuesday, December 26, 2017 14:48 - CONCLUSION: Significant atherosclerotic vascular disease with very poor runoff below the common femorals. Sigifredo Kruse MD FACR Foot X-Ray 12/25/17 0000 Signed Impressions: Service Date/Time: Monday, December 25, 2017 16:16 - CONCLUSION: No acute bony findings Jeff Goodman MD Foot MRI 12/25/17 0000 Signed Impressions: Service Date/Time: Monday, December 25, 2017 17:36 - CONCLUSION: Saline should very small plantar fluid collection just above in the fifth metatarsal that does not extend into the deep tissues. No osteoarthritis. No foreign body identified. Sigifredo Kruse MD FACR PHYSICAL EXAMINATION: GENERAL: Patient is in no acute distress. HEENT: Head is atraumatic. Extraocular movements grossly intact. Pupils reactive to light without icterus. Oropharynx: Moist mucosa. No lesions. NECK: Supple without adenopathy. LUNGS: Clear to auscultation. CARDIOVASCULAR: Regular S1, S2. No murmurs, rubs or gallops. ABDOMEN: Bowel sounds present. Soft, nontender. EXTREMITIES: No clubbing, no cyanosis. The left foot has beefy red, erythematous changes over the dorsum at the base of the second toe all the way to the fifth toe and extending at the dorsum laterally to Now further back from the toes almost to the ankle. Tenderness on palpation. There is a dried ulcer at the lateral aspect of the foot beyond the fifth toe and great toe has erythema. The distal pulses are diminished. SKIN: No rash. NEUROLOGIC: No gross focal findings. PSYCHIATRIC: Cooperative. IMPRESSION: 1. Cellulitis of the left foot due to Pseudomonas. 2. Left foot ulcer. 3. Peripheral vascular disease. RECOMMENDATIONS: 1. Continue piperacillin/tazobactam. 2. Monitor the wound. 3. Follow response to antibiotics. Tab Velázquez MD December 28, 2017 19:08
[2017-12-28] MEDS: ATORVASTATIN 80 MG TAB PO SCH (22:09)
[2017-12-28] MEDS: PANTOPRAZOLE SOD 20 MG DELAYED RELEASE TAB PO SCH (22:10)
[2017-12-28] MEDS: DOXAZOSIN MESYLATE 4 MG TAB PO SCH (22:10)
[2017-12-28] MEDS: FINASTERIDE 5 MG TAB PO SCH (22:10)
--- NOTE | 2017-12-28 22:27 | RADRPT ---
EXAM DATE/TIME: 12/28/2017 21:14 [facility] COMPARISON: CHEST SINGLE AP, June 25, 2017, 4:46. INDICATIONS : Short of breath. MEDICAL HISTORY : Chronic obstructive pulmonary disease. SURGICAL HISTORY : CABG. ENCOUNTER: Subsequent ACUITY: 1 week PAIN SCORE: 0/10 LOCATION: Bilateral chest FINDINGS: There is patchy bilateral infiltrate most confluent in the right upper lobe. No significant effusion present. Cardiac contours are grossly stable. Thoracic skeleton is intact. CONCLUSION: Patchy bilateral infiltrates. Jeff Goodman MD on December 28, 2017 at 22:24 Board Certified Radiologist. This report was verified electronically.
[2017-12-29] VITALS (9 sets, daily range): BP systolic 142–185; BP diastolic 62–91; PULSE 77–104; RESP 18; TEMP 97.7–98.7; O2SAT 92–98
[2017-12-29] MEDS: PIPERACIL-TAZO 4.5 GM PREMIX 100 ML IV SCH ×3 (04:10→23:25)
[2017-12-29] MEDS: RESP: ALBUTEROL 2.5 MG/IPRATROPIUM 0.5 MG NEB (SCH) NEB ×3 (07:58→20:38)
[2017-12-29] MEDS: GABAPENTIN 300 MG CAP PO SCH ×2 (08:52→21:46)
[2017-12-29] MEDS: BACITRACIN TOP OINT 15 GM TUBE TOPICAL SCH (08:52)
[2017-12-29] MEDS: MULTIVITAMIN TAB PO SCH (08:52)
[2017-12-29] MEDS: METOPROLOL TARTRATE 25 MG TAB PO SCH ×2 (08:52→21:47)
[2017-12-29] MEDS: BUDESONIDE-FORMOTEROL 80/4.5 MCG INHALER INH SCH ×2 (08:54→22:00)
[2017-12-29] MEDS: TIOTROPIUM BROMIDE 18 MCG INH INH SCH (08:56)
--- NOTE | 2017-12-29 11:09 | HHI.PR ---
Subjective Remarks Nursing from yesterday reported the patient had some self-limited hemoptysis. No fevers are noted. Chest x-ray has returned showing infiltrates. Objective Vital Signs Date Time Temp Pulse Resp B/P (MAP) Pulse Ox O2 Delivery O2 Flow Rate FiO2 12/29/17 08:00 97 12/29/17 08:00 97.7 86 18 166/87 (113) 93 12/29/17 06:00 98.7 77 18 142/72 (95) 98 12/29/17 04:00 104 12/29/17 00:00 98.1 88 18 142/62 (88) 92 12/28/17 23:21 19 12/28/17 23:00 81 12/28/17 22:07 103 17 152/71 (98) 94 12/28/17 20:00 100.2 101 17 117/54 (75) 94 12/28/17 19:28 94 Nasal Cannula 2.00 12/28/17 19:00 94 Nasal Cannula 2.00 12/28/17 19:00 110 12/28/17 16:00 98.1 89 16 170/79 (109) 94 12/28/17 16:00 84 12/28/17 12:00 99.0 89 16 134/68 (90) 92 12/28/17 12:00 85 I/O 12/28/17 12/28/17 12/28/17 12/29/17 12/29/17 12/29/17 07:00 15:00 23:00 07:00 15:00 23:00 Intake Total 1099 ml 940 ml 0 ml Output Total 400 ml 1575 ml 0 ml Balance 699 ml -635 ml 0 ml Intake Oral 940 ml 0 ml IV Total 1099 ml Output Urine Total 400 ml 1575 ml 0 ml # Bowel Movements 0 0 Result Diagram: 12/25/17 1122 12/28/17 0430 Objective Remarks Left foot and wound care dressing, mild erythema is noted protruding from underneath the gauze dressing. Patient was otherwise awake alert. Lying in bed, awake, alert, no acute distress, unlabored breathing A/P Assessment and Plan 77-year-old male presenting with Left foot infected wound with cellulitis -Status post bedside debridement, MRI of the foot with Pseudomonas cellulitis per podiatry shows no new abscess, just pre-existing infection, awaiting vascular surgery intervention today for possible angioplasty; this is to be prior to any further debridement from podiatry -continue Zosyn per infectious disease Hemoptysis -New problems since last night, self-limited, independently reviewed the chest x-ray and I see patchy infiltrates bilaterally, apparently is hospital- acquired pneumonia while on Zosyn, will consider starting vancomycin and notify infectious disease for further recs Peripheral arterial disease -Continue with Lipitor 80 mg, anticipate vascular surgery intervention today History of hypertension- some occasional elevated readings History of atrial fibrillation rate controlled. Hyperlipidemia Continue on cardiac meds Lopressor Cardura Eliquis and statins BPH. Continue on Cardura and Proscar GERD continue on omeprazole Neuropathy. Continue on gabapentin DVT prophylaxis patient on Eliquis Patient on PPI for GERD Addendum: had some hemoptysis, CXR ordered Casper Sandoval MD December 29, 2017 11:09
[2017-12-29] MEDS ORDERED: SODIUM CHLORID 0.9% 500 ML INJ 1,000 ML IV ONE (12:00)
[2017-12-29] MEDS ORDERED: ROCURONIUM INJ 50 MG/5 ML SYRINGE IV PUSH ONE (12:00)
[2017-12-29] MEDS ORDERED: LIDOCAINE HCL 1% PF 5 ML SYRINGE OTHER ONE (12:00)
[2017-12-29] MEDS ORDERED: DEXAMETHASONE SOD PHOS 4 MG/ML VIAL IV ONE (12:00)
[2017-12-29] MEDS ORDERED: PROPOFOL 200 MG/20 ML AMP IV ONE (12:00)
[2017-12-29] MEDS ORDERED: NEOSTIGMINE 5 MG/5 ML SYRINGE IV PUSH ONE (12:00)
[2017-12-29] MEDS ORDERED: ONDANSETRON HCL 4 MG/2 ML VIAL IV ONE (12:00)
[2017-12-29] MEDS ORDERED: GLYCOPYRROLATE 1 MG/5 ML SYRINGE IV PUSH ONE (12:00)
[2017-12-29] MEDS ORDERED: PHENYLEPH/NS 1000 MCG/10 ML SYR IV ONE (12:00)
[2017-12-29] MEDS ORDERED: ePHEDrine/NS 25 MG/5 ML SYRINGE IV ONE (12:00)
[2017-12-29] MEDS ORDERED: LABETALOL HCL 100 MG/20 ML VIAL IV ONE (12:00)
[2017-12-29] MEDS ORDERED: HEPARIN SODIUM - IV 10,000 UNITS/10 ML VIAL ONE (13:21)
[2017-12-29] MEDS ORDERED: PROTAMINE SULFATE 50 MG/5 ML VIAL ONE (13:21)
[2017-12-29] MEDS ORDERED: HEPARIN-NS/PF INJ 500 ML ONE (13:21)
[2017-12-29] MEDS ORDERED: fentaNYL CITRATE 250 MCG/5 ML AMP ONE (13:28)
[2017-12-29] MEDS ORDERED: ceFAZolin INJ 1,000 MG VIAL ONE (14:12)
[2017-12-29] MEDS ORDERED: BUPIVACAINE/EPINEPHRINE 0.5% PF 30 ML VIAL ONE (14:12)
[2017-12-29] MEDS ORDERED: IOHEXOL 300 INJ 50 ML IV ONE ×3 (15:03→16:24)
[2017-12-29] MEDS ORDERED: VANCOMYCIN HCL 1000 MG VIAL ONE (16:25)
--- NOTE | 2017-12-29 17:58 | HHI.IDPN ---
Note Infectious Disease Note Patient is post femoral endarterectomy. Seen in recovery room. Currently has oxygen via facemask. Easily awakened. No distress. Afebrile. Noted to have had some hemoptysis yesterday. PAST MEDICAL HISTORY: Hypertension, hyperlipidemia, COPD, BPH, neuropathy, gastroesophageal reflux disease, aortic valve replacement with tissue valve in 2017, peripheral arterial disease, history of stent placement in the lower extremities, cholecystectomy, history of incisional hernia. ALLERGIES: LISINOPRIL. MEDICATIONS Current Medications Medications (Trade) Dose Ordered Sig/Kevin Route PRN Reason Start Time Stop Time Status Last Admin Dose Admin Sodium Chloride 1,000 ml @ 60 mls/hr [id number] IV 12/25/17 11:30 12/28/17 22:19 Bacitracin (Baciguent Oint) 1 applic DAILY TOPICAL 12/25/17 18:00 12/29/17 08:52 Acetaminophen/ Hydrocodone Bitart ([place] 5-325 Mg) 1 tab Q4H PRN PO PAIN SCALE 1 TO 4 12/25/17 16:30 Acetaminophen/ Hydrocodone Bitart ([place] 5-325 Mg) 2 tab Q4H PRN PO PAIN SCALE 5 TO 7 12/25/17 16:30 12/28/17 22:21 Apixaban (Eliquis) 5 mg BID PO 12/25/17 21:00 Future Hold 12/28/17 08:16 Atorvastatin Calcium (Lipitor) 80 mg HS PO 12/25/17 21:00 12/28/17 22:09 Doxazosin Mesylate (Cardura) 4 mg HS PO 12/25/17 21:00 12/28/17 22:10 Finasteride (Proscar) 5 mg HS PO 12/25/17 21:00 12/28/17 22:10 Gabapentin (Neurontin) 300 mg BID PO 12/25/17 21:00 12/29/17 08:52 Metoprolol Tartrate (Lopressor) 25 mg BID PO 12/25/17 21:00 12/29/17 08:52 Tiotropium [place] (Spiriva Inh) 18 mcg DAILY INH 12/26/17 09:00 12/29/17 08:56 Budesonide/ Formoterol Fumarate (Symbicort 80-4.5 Mcg Inh) 2 puff BID INH 12/25/17 21:00 12/29/17 08:54 Patient Own Medication PT OWN MED: (Levalbuterol 15 GM ... Q4H INH 12/25/17 16:45 Future Hold Multivitamins (Theragran) 1 tab DAILY PO 12/26/17 09:00 12/29/17 08:52 Pantoprazole Sodium (Protonix) 20 mg HS PO 12/25/17 21:00 12/28/17 22:10 Piperacillin Sod/ Tazobactam Sod 100 ml @ 200 mls/hr Q6H IV 12/26/17 17:00 12/29/17 11:00 Clonidine (Catapres) 0.1 mg Q6H PRN PO SBP>160, DBP>90 12/26/17 17:15 12/27/17 20:00 Albuterol/ Ipratropium (Duoneb Neb) 1 ampule Q2HR NEB PRN NEB sob 12/28/17 02:00 12/28/17 17:05 Albuterol/ Ipratropium (Duoneb Neb) 1 ampule Q6HR WHILE AWAKE NEB NEB 12/28/17 08:00 12/29/17 07:58 Lactated Ringer's 1,000 ml @ 30 mls/hr Q24H PRN IV SEE LABEL COMMENTS 12/28/17 17:30 12/31/17 17:29 12/29/17 13:05 Sodium Chloride 500 ml @ 30 mls/hr [id number] PRN IV SEE LABEL COMMENTS 12/28/17 17:30 12/31/17 17:29 Metoprolol Tartrate (Lopressor) 25 mg MANUFACTURING ACCOUNTANT PRN PO SEE LABEL COMMENTS 12/28/17 17:30 12/31/17 17:29 Povidone Iodine (Betadine 5% Antisepsis Kit) 1 applic MANUFACTURING ACCOUNTANT PRN EACH NARE SEE LABEL COMMENTS 12/28/17 17:30 12/31/17 17:29 Chlorhexidine Gluconate (Chlorhexidine 2% Cloth) 3 pack MANUFACTURING ACCOUNTANT PRN TOPICAL SEE LABEL COMMENTS 12/28/17 17:30 12/31/17 17:29 Iohexol 50 ml @ 0 mls/hr ONCE ONCE IV 12/29/17 15:22 12/29/17 15:23 UNV Iohexol 50 ml @ 0 mls/hr ONCE ONCE IV 12/29/17 16:24 12/29/17 16:25 UNV SOCIAL HISTORY: The patient moved to [place] approximately 5 years ago [place]. No tobacco. Occasional alcohol. No illicit drugs. FAMILY HISTORY: Noncontributory. Objective: Vital Signs Date Time Temp Pulse Resp B/P (MAP) Pulse Ox O2 Delivery O2 Flow Rate FiO2 12/29/17 12:00 98.5 85 18 185/91 (122) 94 12/29/17 12:00 81 12/29/17 12:00 Nasal Cannula 2.00 12/29/17 08:00 82 12/29/17 08:00 Nasal Cannula 2.00 12/29/17 08:00 97 12/29/17 08:00 97.7 86 18 166/87 (113) 93 12/29/17 06:00 98.7 77 18 142/72 (95) 98 12/29/17 04:00 104 12/29/17 00:00 98.1 88 18 142/62 (88) 92 12/28/17 23:21 19 12/28/17 23:00 81 12/28/17 22:07 103 17 152/71 (98) 94 12/28/17 20:00 100.2 101 17 117/54 (75) 94 12/28/17 19:28 94 Nasal Cannula 2.00 12/28/17 19:00 94 Nasal Cannula 2.00 12/28/17 19:00 110 Laboratory Tests Test 12/28/17 04:30 Blood Urea Nitrogen 7 MG/DL Creatinine 0.88 MG/DL Random Glucose 87 MG/DL Calcium Level 8.2 MG/DL Sodium Level 142 MEQ/L Potassium Level 3.5 MEQ/L Chloride Level 109 MEQ/L Carbon Dioxide Level 21.0 MEQ/L Anion Gap 12 MEQ/L Estimat Glomerular Filtration Rate 84 ML/MIN Imaging: Chest X-Ray 12/28/17 0000 Signed Impressions: Service Date/Time: Thursday, December 28, 2017 21:14 - CONCLUSION: Patchy bilateral infiltrates. Jfef Goodman MD Aorta w/Runoff CTA 12/26/17 0000 Signed Impressions: Service Date/Time: Tuesday, December 26, 2017 14:48 - CONCLUSION: Significant atherosclerotic vascular disease with very poor runoff below the common femorals. Sigifredo Kruse MD FACR Foot X-Ray 12/25/17 0000 Signed Impressions: Service Date/Time: Monday, December 25, 2017 16:16 - CONCLUSION: No acute bony findings Jeff Goodman MD Foot MRI 12/25/17 0000 Signed Impressions: Service Date/Time: Monday, December 25, 2017 17:36 - CONCLUSION: Saline should very small plantar fluid collection just above in the fifth metatarsal that does not extend into the deep tissues. No osteoarthritis. No foreign body identified. Sigifredo Kruse MD FACR PHYSICAL EXAMINATION: GENERAL: No acute distress. Drowsy. HEENT: Extraocular movements grossly intact. Pupils reactive to light without icterus. Oropharynx: Moist mucosa. No lesions. NECK: Supple without adenopathy. LUNGS: Bilateral rhonchi. CARDIOVASCULAR: Irregular S1, S2. No murmurs, rubs or gallops. ABDOMEN: Bowel sounds present. Soft, nontender. EXTREMITIES: No clubbing, no cyanosis. The left foot still has erythema which has decreased. SKIN: No rash. NEUROLOGIC: No gross focal findings. PSYCHIATRIC: Cooperative. IMPRESSION: 1. Cellulitis of the left foot due to Pseudomonas. 2. Left foot ulcer. 3. Peripheral vascular disease. 4. Abnormal CXR. ? PNA. RECOMMENDATIONS: 1. Continue piperacillin/tazobactam. 2. Repeat CXR in AM. 3. Monitor Temp and CBC. Tab Velázquez MD December 29, 2017 17:58
[2017-12-29] MEDS ORDERED: DO NOT ADM ANY ANTICOAGULANT DRUGS PRN (19:00)
[2017-12-29] MEDS: FINASTERIDE 5 MG TAB PO SCH (21:46)
[2017-12-29] MEDS: ATORVASTATIN 80 MG TAB PO SCH (21:46)
[2017-12-29] MEDS: APIXABAN 5 MG TABLET PO SCH (21:47)
[2017-12-29] MEDS: PANTOPRAZOLE SOD 20 MG DELAYED RELEASE TAB PO SCH (21:47)
[2017-12-29] MEDS: DOXAZOSIN MESYLATE 4 MG TAB PO SCH (21:47)
[2017-12-29] MEDS: ACETAMINOPHEN/HYDROcodone 325 MG/5 MG TAB PO PRN (21:49)
--- NOTE | 2017-12-29 23:46 | MP ---
cc: Abhishek Cruz MD DATE OF OPERATION: 12/29/2017 POSTOPERATIVE DIAGNOSIS: Ischemia of both legs, left more than right, occlusion of the left superficial femoral artery and common femoral artery, occlusion of the popliteal distal artery. POSTOPERATIVE DIAGNOSIS: Ischemia of both legs, left more than right, occlusion of the left superficial femoral artery and common femoral artery, occlusion of the popliteal distal artery. OPERATIVE PROCEDURE: External iliac and common femoral endarterectomy patch, bovine patch angioplasty and attempted popliteal artery angioplasty and angiograms with a runoff. SURGEON: Abhishek Cruz MD INTERVENTIONAL RADIOLOGIST AND CO-SURGEON: Sage Ambrosio MD ANESTHESIA: General. ESTIMATED BLOOD LOSS: 400 mL. DESCRIPTION OF PROCEDURE: The patient was prepped and draped in usual fashion. Left groin incision made, deepened to the level of the neurovascular bundle. The patient had 3 previous surgeries here and there is lot of scar tissue present, so this was very carefully dissected until the vessels are reached. Common femoral, deep femoral and superficial femoral arteries are isolated and then vessel loops placed around each. The patient had several surgeries here, there is a lot of scar tissue, previous stitches of some sorts and a Perclose device in the superficial femoral artery. Palpation revealed the superficial femoral artery to be completely closed at its origin, but there are some collaterals here that fill it probably more distally. The common femoral artery is severely stenosed. The patient was given 5000 units of heparin. Then, profunda clamps are applied proximally and distally and ____ opened longitudinally with Haque scissors. There is a huge plaque occluding the proximal superficial femoral artery. This one is dissected free and then a common femoral artery plaque is equally dissected free. Deep femoral bleeds back nicely. There is some backbleeding also from the SFA now, which was not present initially. The inflow is okay. Blood flow is present, but not really under very high pressure, but this is the function of narrowed vessels more proximally. Arteriogram of this is obtained and there is no flow-limiting stenosis. The distal end is now attended. The 6-sheath is introduced in superficial femoral artery under direct vision and then through the sheath, the guidewire is placed. Further procedure is dictated by Dr. Ambrosio. Several arteriograms obtained in the process. Finally, this part is completed. The clamps are reapplied and then a bovine patch is sewn in with running 6-0 Prolene. Blood flow reestablished. At the end of the procedure, the foot is nice and warm and patient has a good blood flow by Doppler in proximal vessels. Area irrigated with saline and closed with 0 Vicryl in layers and skin was closed with 4-0 Monocryl. The patient tolerated the procedure well. MD BASHIR Rogers/SUSI/isaias , 08:17 PM , 08:45 PM
[2017-12-30] VITALS (19 sets, daily range): BP systolic 124–147; BP diastolic 59–82; PULSE 82–106; RESP 18; TEMP 97.5–98.8; O2SAT 91–97
[2017-12-30 01:09] LABS: HEMOGLOBIN 11.6 GM/DL (13.0-17.0); MEAN CELL VOLUME 87.4 FL (80.0-100.0); MEAN CORPUSCULAR HGB CONC 33.2 % (32.0-36.0); MEAN PLATELET VOLUME 8.7 FL (7.0-11.0); PLATELET COUNT 155 TH/MM3 (150-450); RED BLOOD COUNT 4.01 MIL/MM3 (4.50-5.90); RED CELL DISTRIBUTION WIDTH 15.5 % (11.6-17.2); WHITE BLOOD COUNT 4.7 TH/MM3 (4.0-11.0)
[2017-12-30 01:38] LABS: BICARBONATE 22.7 MEQ/L (21.0-32.0); CALCIUM 7.6 MG/DL (8.5-10.1); CREATININE 0.74 MG/DL (0.60-1.30)
[2017-12-30] MEDS: ACETAMINOPHEN/HYDROcodone 325 MG/5 MG TAB PO PRN ×3 (03:42→15:43)
--- NOTE | 2017-12-30 04:32 | RADRPT ---
EXAM DATE/TIME: 12/30/2017 03:51 [facility] COMPARISON: CHEST SINGLE AP, June 25, 2017, 4:46. INDICATIONS : Short of breath, evaluate for pneumonia. MEDICAL HISTORY : Chronic obstructive pulmonary disease. SURGICAL HISTORY : CABG. ENCOUNTER: Subsequent ACUITY: 4 - 6 days PAIN SCORE: 0/10 LOCATION: Bilateral chest FINDINGS: A single portable frontal view the chest shows coarse interstitial markings bilaterally which are unc hanged prior exam. No acute infiltrate or effusion. Heart is normal in size. A degenerative thoracic spine. CONCLUSION: 1. Chronic interstitial changes. 2. No acute infiltrate or effusion. Kimo Crocker Jr., MD on December 30, 2017 at 4:29 Board Certified Radiologist. This report was verified electronically.
[2017-12-30] MEDS: PIPERACIL-TAZO 4.5 GM PREMIX 100 ML IV SCH ×4 (04:41→22:25)
[2017-12-30 04:54] LABS: AUTOMATED NEUTROPHIL # 4.1 TH/MM3 (1.8-7.7); BASOPHIL % 0.1 % (0.0-2.0); HEMATOCRIT 33.1 % (39.0-51.0); LYMPHOCYTE # 0.4 TH/MM3 (1.0-4.8); MEAN CELL VOLUME 87.4 FL (80.0-100.0); MEAN CORPUSCULAR HEMOGLOBIN 29.1 PG (27.0-34.0); MEAN CORPUSCULAR HGB CONC 33.3 % (32.0-36.0); MEAN PLATELET VOLUME 8.3 FL (7.0-11.0); MONO % 11.1 % (0.0-8.0); MONOCYTE # 0.6 TH/MM3 (0-0.9); NEUT % 80.8 % (16.0-70.0); PLATELET COUNT 149 TH/MM3 (150-450); RED BLOOD COUNT 3.79 MIL/MM3 (4.50-5.90); RED CELL DISTRIBUTION WIDTH 15.6 % (11.6-17.2); WHITE BLOOD COUNT 5.1 TH/MM3 (4.0-11.0)
[2017-12-30] MEDS: RESP: ALBUTEROL 2.5 MG/IPRATROPIUM 0.5 MG NEB (SCH) NEB (08:22)
[2017-12-30] MEDS: SODIUM CHLOR 0.9% 1000 ML INJ 1,000 ML IV SCH ×2 (08:30→09:26)
[2017-12-30] MEDS: MULTIVITAMIN TAB PO SCH (08:35)
[2017-12-30] MEDS: BUDESONIDE-FORMOTEROL 80/4.5 MCG INHALER INH SCH ×2 (08:36→21:37)
[2017-12-30] MEDS: METOPROLOL TARTRATE 25 MG TAB PO SCH ×2 (08:36→21:38)
[2017-12-30] MEDS: GABAPENTIN 300 MG CAP PO SCH ×2 (08:36→21:38)
[2017-12-30] MEDS: APIXABAN 5 MG TABLET PO SCH ×2 (08:36→21:42)
[2017-12-30] MEDS: TIOTROPIUM BROMIDE 18 MCG INH INH SCH (08:37)
[2017-12-30] MEDS: BACITRACIN TOP OINT 15 GM TUBE TOPICAL SCH (08:37)
--- NOTE | 2017-12-30 08:40 | HHI.PR ---
Subjective Remarks Pt feeling a lot better. barely has pain in his foot. denies any CP worsening SOB, nausea or vomiting. Still had episode of hemoptysis but small amount mainly mixed w phlegm. Discussed w RN, pt has been cleared by Dr. Pete to be transferred to floor. Objective Vitals Vital Signs Date Time Temp Pulse Resp B/P (MAP) Pulse Ox O2 Delivery O2 Flow Rate FiO2 12/30/17 08:39 97 21 12/30/17 08:24 97 Nasal Cannula 2.00 12/30/17 07:54 97 Nasal Cannula 3.00 12/30/17 07:54 98.6 91 18 147/82 (103) 97 12/30/17 07:00 96 12/30/17 04:45 18 12/30/17 04:15 89 12/30/17 04:00 97.5 88 18 143/74 (97) 93 12/30/17 03:51 92 Nasal Cannula 3.00 12/30/17 00:00 98.8 106 18 132/60 (84) 97 12/29/17 23:30 93 Nasal Cannula 3.00 12/29/17 23:00 18 12/29/17 23:00 104 12/29/17 20:40 94 Nasal Cannula 3.00 12/29/17 20:15 94 12/29/17 20:00 93 Nasal Cannula 3.00 12/29/17 20:00 97.7 93 18 165/83 (110) 93 Manual Cuff/Palpation 12/29/17 19:30 91 14 164/86 (112) 94 Nasal Cannula 4 12/29/17 19:00 90 20 159/76 (103) 94 Nasal Cannula 4 12/29/17 18:30 97.6 93 16 177/81 (113) 92 Nasal Cannula 4 12/29/17 18:15 97.6 93 16 161/75 (103) 92 Nasal Cannula 4 12/29/17 18:00 97.6 90 16 169/78 (108) 93 Nasal Cannula 4 12/29/17 17:45 97.6 90 16 170/78 (108) 98 Nasal Cannula 4 12/29/17 17:30 97.6 94 16 170/78 (108) 94 Nasal Cannula 4 12/29/17 17:26 97.6 98 16 188/99 (128) 92 Nasal Cannula 4 5/15/18 12:00 98.5 85 18 185/91 (122) 94 12/29/17 12:00 81 12/29/17 12:00 Nasal Cannula 2.00 I/O 12/29/17 12/29/17 12/29/17 12/30/17 12/30/17 12/30/17 07:00 15:00 23:00 07:00 15:00 23:00 Intake Total 0 ml 2000 ml 920 ml Output Total 0 ml 1200 ml 1175 ml Balance 0 ml 800 ml -255 ml Intake Oral 0 ml 720 ml IV Total 200 ml Other 2000 ml Output Urine Total 0 ml 700 ml 1125 ml Drainage Total 50 ml Estimated Blood Loss 500 ml # Bowel Movements 0 0 Result Diagram: 12/30/17 0425 12/30/17 0033 Imaging Last Impressions Chest X-Ray 12/30/17 0600 Signed Impressions: Service Date/Time: Saturday, December 30, 2017 03:51 - CONCLUSION: 1. Chronic interstitial changes. 2. No acute infiltrate or effusion. Kimo Crocker Jr., MD Aorta w/Runoff CTA 12/26/17 0000 Signed Impressions: Service Date/Time: Tuesday, December 26, 2017 14:48 - CONCLUSION: Significant atherosclerotic vascular disease with very poor runoff below the common femorals. Sigifredo Kruse MD FACR Foot X-Ray 12/25/17 0000 Signed Impressions: Service Date/Time: Monday, December 25, 2017 16:16 - CONCLUSION: No acute bony findings Jeff Goodman MD Foot MRI 12/25/17 0000 Signed Impressions: Service Date/Time: Monday, December 25, 2017 17:36 - CONCLUSION: Saline should very small plantar fluid collection just above in the fifth metatarsal that does not extend into the deep tissues. No osteoarthritis. No foreign body identified. Sigifredo Kruse MD FACR Objective Remarks wound noted on the left foot. no draining, some erythema still noted. Patient was otherwise awake alert. Lying in bed lungs w no wheezing heart w rrr w no obvious murmurs A/P Assessment and Plan 77-year-old male presenting with Left foot infected wound with cellulitis -Status post bedside debridement, MRI of the foot with Pseudomonas cellulitis per podiatry shows no new abscess, just pre-existing infection. vascular sx following pt and pt is POD 1 from External iliac and common femoral endarterectomy patch, bovine patch angioplasty and attempted popliteal artery angioplasty and angiograms with a runoff. MILTON drain in place, serosanguineous fluid noted. Vascular intervention required prior to any further debridement from podiatry -continue Zosyn per infectious disease Hemoptysis -New problems since 2 nights ago, repeat chest xray w chronic interstitial changes and no acute infiltrates or effusion. Currently on zosyn. ID following. Peripheral arterial disease -Continue with Lipitor 80 mg History of hypertension- some occasional elevated readings History of atrial fibrillation rate controlled. Eliquis Hyperlipidemia Continue on cardiac meds Lopressor Cardura and statins BPH. Continue on Cardura and Proscar GERD continue on omeprazole Neuropathy. Continue on gabapentin DVT prophylaxis patient on Eliquis Patient on PPI for GERD Discharge Planning transfer to regular floor Monitor hemoptysis. Francine Rankin MD December 30, 2017 08:40
--- NOTE | 2017-12-30 10:09 | PD.CAR.PN ---
CVT Progress Note Subjective/Hospital Course: Patient seen Full consult MARY Pete 12/28/2017 I have reviewed the CTA on this patient and compared to clinical findings. 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 Both groins i.e. distal external iliac arteries, common femoral arteries and superficial femoral arteries are nearly occluded In addition patient has severe disease throughout the SFA bilaterally and then into the popliteal with essentially single vessel runoff to the foot and interrupted trifurcation vessels Options here a very limited. Improving the inflow would require either aortobifemoral bypass for which patient is clearly not a candidate or axillo- bifemoral bypass for which patient is a poor candidate Even then the stenotic areas are throughout the both outflow vessels and this is flow limiting factor. Given the patient's age, frail clinical status and comorbidities, I believe the best way to deal with this would be left common femoral and superficial femoral artery endarterectomy and endovascular approach to SFA and popliteal artery by combination of arthrectomy and balloon angioplasty. Right side does not look any better but is currently not a problem clinically The above we will give the patient reasonable chance of at least temporizing the further ischemia to the foot and give him a chance to keep the foot. There is still a high likelihood that patient will eventually require below- knee amputation no matter what we do and have explained to the patient in detail We will proceed with open and endovascular component of surgery tomorrow 12/30/2017 Patient doing well status post femoral endarterectomy Foot is warm and the patient definitely has dopplerable pulses and posterior tibial artery Capillary refill is somewhat delayed but definitely better than it was prior to surgery I discussed the case with interventional radiology and we will try to open the popliteal artery from below up probably on or Thursday in the interventional radiology suite Patient can transfer to floor Out of bed ambulate as tolerated Eliquis resumed last night Objective: Vital Signs Date Time Temp Pulse Resp B/P (MAP) Pulse Ox O2 Delivery O2 Flow Rate FiO2 12/30/17 10:05 99 12/30/17 09:19 94 12/30/17 08:39 97 21 12/30/17 08:24 97 Nasal Cannula 2.00 12/30/17 07:54 97 Nasal Cannula 3.00 12/30/17 07:54 98.6 91 18 147/82 (103) 97 12/30/17 07:00 96 12/30/17 04:45 18 12/30/17 04:15 89 12/30/17 04:00 97.5 88 18 143/74 (97) 93 12/30/17 03:51 92 Nasal Cannula 3.00 12/30/17 00:00 98.8 106 18 132/60 (84) 97 12/29/17 23:30 93 Nasal Cannula 3.00 12/29/17 23:00 18 12/29/17 23:00 104 12/29/17 20:40 94 Nasal Cannula 3.00 12/29/17 20:15 94 12/29/17 20:00 93 Nasal Cannula 3.00 12/29/17 20:00 97.7 93 18 165/83 (110) 93 Manual Cuff/Palpation 12/29/17 19:30 91 14 164/86 (112) 94 Nasal Cannula 4 12/29/17 19:00 90 20 159/76 (103) 94 Nasal Cannula 4 12/29/17 18:30 97.6 93 16 177/81 (113) 92 Nasal Cannula 4 12/29/17 18:15 97.6 93 16 161/75 (103) 92 Nasal Cannula 4 12/29/17 18:00 97.6 90 16 169/78 (108) 93 Nasal Cannula 4 12/29/17 17:45 97.6 90 16 170/78 (108) 98 Nasal Cannula 4 12/29/17 17:30 97.6 94 16 170/78 (108) 94 Nasal Cannula 4 12/29/17 17:26 97.6 98 16 188/99 (128) 92 Nasal Cannula 4 12/29/17 12:00 98.5 85 18 185/91 (122) 94 12/29/17 12:00 81 12/29/17 12:00 Nasal Cannula 2.00 Labs: Laboratory Tests Test 12/30/17 00:33 12/30/17 04:25 White Blood Count 4.7 TH/MM3 (4.0-11.0) 5.1 TH/MM3 (4.0-11.0) Red Blood Count 4.01 MIL/MM3 (4.50-5.90) 3.79 MIL/MM3 (4.50-5.90) Hemoglobin 11.6 GM/DL (13.0-17.0) 11.0 GM/DL (13.0-17.0) Hematocrit 35.0 % (39.0-51.0) 33.1 % (39.0-51.0) Mean Corpuscular Volume 87.4 FL (80.0-100.0) 87.4 FL (80.0-100.0) Mean Corpuscular Hemoglobin 29.0 PG (27.0-34.0) 29.1 PG (27.0-34.0) Mean Corpuscular Hemoglobin Concent 33.2 % (32.0-36.0) 33.3 % (32.0-36.0) Red Cell Distribution Width 15.5 % (11.6-17.2) 15.6 % (11.6-17.2) Platelet Count 155 TH/MM3 (150-450) 149 TH/MM3 (150-450) Mean Platelet Volume 8.7 FL (7.0-11.0) 8.3 FL (7.0-11.0) Blood Urea Nitrogen 9 MG/DL (7-18) Creatinine 0.74 MG/DL (0.60-1.30) Random Glucose 129 MG/DL (74-106) Calcium Level 7.6 MG/DL (8.5-10.1) Sodium Level 141 MEQ/L (136-145) Potassium Level 3.8 MEQ/L (3.5-5.1) Chloride Level 109 MEQ/L (98-107) Carbon Dioxide Level 22.7 MEQ/L (21.0-32.0) Anion Gap 9 MEQ/L (5-15) Estimat Glomerular Filtration Rate 103 ML/MIN (>89) Neutrophils (%) (Auto) 80.8 % (16.0-70.0) Lymphocytes (%) (Auto) 8.0 % (9.0-44.0) Monocytes (%) (Auto) 11.1 % (0.0-8.0) Eosinophils (%) (Auto) 0.0 % (0.0-4.0) Basophils (%) (Auto) 0.1 % (0.0-2.0) Neutrophils # (Auto) 4.1 TH/MM3 (1.8-7.7) Lymphocytes # (Auto) 0.4 TH/MM3 (1.0-4.8) Monocytes # (Auto) 0.6 TH/MM3 (0-0.9) Eosinophils # (Auto) 0.0 TH/MM3 (0-0.4) Basophils # (Auto) 0.0 TH/MM3 (0-0.2) CBC Comment DIFF FINAL Differential Comment Result Diagram: 12/30/17 0425 12/30/17 0033 Abhishek Cruz MD December 30, 2017 10:09
--- NOTE | 2017-12-30 11:43 | HHI.IDPN ---
Note Infectious Disease Note Patient marked decreased pain in the left foot. Comfortable. Denies cough or SOB. Post femoral endarterectomy on 12/29. CXR has interstitial changes. PAST MEDICAL HISTORY: Hypertension, hyperlipidemia, COPD, BPH, neuropathy, gastroesophageal reflux disease, aortic valve replacement with tissue valve in 2017, peripheral arterial disease, history of stent placement in the lower extremities, cholecystectomy, history of incisional hernia. ALLERGIES: LISINOPRIL. MEDICATIONS Current Medications Medications (Trade) Dose Ordered Sig/Kevin Route PRN Reason Start Time Stop Time Status Last Admin Dose Admin Sodium Chloride 1,000 ml @ 60 mls/hr [id number] IV 12/25/17 11:30 12/28/17 22:19 Bacitracin (Baciguent Oint) 1 applic DAILY TOPICAL 12/25/17 18:00 12/30/17 08:37 Acetaminophen/ Hydrocodone Bitart ([place] 5-325 Mg) 1 tab Q4H PRN PO PAIN SCALE 1 TO 4 12/25/17 16:30 12/30/17 03:42 Acetaminophen/ Hydrocodone Bitart ([place] 5-325 Mg) 2 tab Q4H PRN PO PAIN SCALE 5 TO 7 12/25/17 16:30 12/29/17 21:49 Atorvastatin Calcium (Lipitor) 80 mg HS PO 12/25/17 21:00 12/29/17 21:46 Doxazosin Mesylate (Cardura) 4 mg HS PO 12/25/17 21:00 12/29/17 21:47 Finasteride (Proscar) 5 mg HS PO 12/25/17 21:00 12/29/17 21:46 Gabapentin (Neurontin) 300 mg BID PO 12/25/17 21:00 12/30/17 08:36 Metoprolol Tartrate (Lopressor) 25 mg BID PO 12/25/17 21:00 12/30/17 08:36 Tiotropium [place] (Spiriva Inh) 18 mcg DAILY INH 12/26/17 09:00 12/30/17 08:37 Budesonide/ Formoterol Fumarate (Symbicort 80-4.5 Mcg Inh) 2 puff BID INH 12/25/17 21:00 12/30/17 08:36 Patient Own Medication PT OWN MED: (Levalbuterol 15 GM ... Q4H INH 12/25/17 16:45 Future Hold Multivitamins (Theragran) 1 tab DAILY PO 12/26/17 09:00 12/30/17 08:35 Pantoprazole Sodium (Protonix) 20 mg HS PO 12/25/17 21:00 12/29/17 21:47 Piperacillin Sod/ Tazobactam Sod 100 ml @ 200 mls/hr Q6H IV 12/26/17 17:00 12/30/17 10:10 Clonidine (Catapres) 0.1 mg Q6H PRN PO SBP>160, DBP>90 12/26/17 17:15 12/27/17 20:00 Albuterol/ Ipratropium (Duoneb Neb) 1 ampule Q2HR NEB PRN NEB sob 12/28/17 02:00 12/28/17 17:05 Albuterol/ Ipratropium (Duoneb Neb) 1 ampule Q6HR WHILE AWAKE NEB NEB 12/28/17 08:00 12/30/17 08:22 Lactated Ringer's 1,000 ml @ 30 mls/hr Q24H PRN IV SEE LABEL COMMENTS 12/28/17 17:30 12/31/17 17:29 12/29/17 13:05 Sodium Chloride 500 ml @ 30 mls/hr [id number] PRN IV SEE LABEL COMMENTS 12/28/17 17:30 12/31/17 17:29 Metoprolol Tartrate (Lopressor) 25 mg [employer]GICAL SALES REPRESENTATIVE PRN PO SEE LABEL COMMENTS 12/28/17 17:30 12/31/17 17:29 Povidone Iodine (Betadine 5% Antisepsis Kit) 1 applic [employer]ICAL SALES REPRESENTATIVE PRN EACH NARE SEE LABEL COMMENTS 12/28/17 17:30 12/31/17 17:29 Chlorhexidine Gluconate (Chlorhexidine 2% Cloth) 3 pack [employer]ICAL SALES REPRESENTATIVE PRN TOPICAL SEE LABEL COMMENTS 12/28/17 17:30 12/31/17 17:29 Miscellaneous Information ([facility] [place] [facility] ALL NURSING DEPARTME... UNSCH PRN .XX SEE LABEL COMMENTS 12/29/17 19:00 12/30/17 18:59 Apixaban (Eliquis) 5 mg BID PO 12/29/17 21:00 12/30/17 08:36 Objective: Vital Signs Date Time Temp Pulse Resp B/P (MAP) Pulse Ox O2 Delivery O2 Flow Rate FiO2 12/30/17 11:07 93 12/30/17 11:07 98.1 97 18 124/59 (80) 91 12/30/17 11:07 91 Room Air 12/30/17 10:05 99 12/30/17 09:19 94 12/30/17 08:39 97 21 12/30/17 08:24 97 Nasal Cannula 2.00 12/30/17 07:54 97 Nasal Cannula 3.00 12/30/17 07:54 98.6 91 18 147/82 (103) 97 12/30/17 07:00 96 12/30/17 04:45 18 12/30/17 04:15 89 12/30/17 04:00 97.5 88 18 143/74 (97) 93 12/30/17 03:51 92 Nasal Cannula 3.00 12/30/17 00:00 98.8 106 18 132/60 (84) 97 12/29/17 23:30 93 Nasal Cannula 3.00 12/29/17 23:00 18 12/29/17 23:00 104 12/29/17 20:40 94 Nasal Cannula 3.00 12/29/17 20:15 94 12/29/17 20:00 93 Nasal Cannula 3.00 12/29/17 20:00 97.7 93 18 165/83 (110) 93 Manual Cuff/Palpation 12/29/17 19:30 91 14 164/86 (112) 94 Nasal Cannula 4 12/29/17 19:00 90 20 159/76 (103) 94 Nasal Cannula 4 12/29/17 18:30 97.6 93 16 177/81 (113) 92 Nasal Cannula 4 12/29/17 18:15 97.6 93 16 161/75 (103) 92 Nasal Cannula 4 12/29/17 18:00 97.6 90 16 169/78 (108) 93 Nasal Cannula 4 12/29/17 17:45 97.6 90 16 170/78 (108) 98 Nasal Cannula 4 12/29/17 17:30 97.6 94 16 170/78 (108) 94 Nasal Cannula 4 12/29/17 17:26 97.6 98 16 188/99 (128) 92 Nasal Cannula 4 12/29/17 12:00 98.5 85 18 185/91 (122) 94 12/29/17 12:00 81 12/29/17 12:00 Nasal Cannula 2.00 Laboratory Tests Test 12/30/17 00:33 12/30/17 04:25 White Blood Count 4.7 TH/MM3 5.1 TH/MM3 Red Blood Count 4.01 MIL/MM3 3.79 MIL/MM3 Hemoglobin 11.6 GM/DL 11.0 GM/DL Hematocrit 35.0 % 33.1 % Mean Corpuscular Volume 87.4 FL 87.4 FL Mean Corpuscular Hemoglobin 29.0 PG 29.1 PG Mean Corpuscular Hemoglobin Concent 33.2 % 33.3 % Red Cell Distribution Width 15.5 % 15.6 % Platelet Count 155 TH/MM3 149 TH/MM3 Mean Platelet Volume 8.7 FL 8.3 FL Neutrophils (%) (Auto) 80.8 % Lymphocytes (%) (Auto) 8.0 % Monocytes (%) (Auto) 11.1 % Eosinophils (%) (Auto) 0.0 % Basophils (%) (Auto) 0.1 % Neutrophils # (Auto) 4.1 TH/MM3 Lymphocytes # (Auto) 0.4 TH/MM3 Monocytes # (Auto) 0.6 TH/MM3 Eosinophils # (Auto) 0.0 TH/MM3 Basophils # (Auto) 0.0 TH/MM3 CBC Comment DIFF FINAL Differential Comment Laboratory Tests Test 12/30/17 00:33 Blood Urea Nitrogen 9 MG/DL Creatinine 0.74 MG/DL Random Glucose 129 MG/DL Calcium Level 7.6 MG/DL Sodium Level 141 MEQ/L Potassium Level 3.8 MEQ/L Chloride Level 109 MEQ/L Carbon Dioxide Level 22.7 MEQ/L Anion Gap 9 MEQ/L Estimat Glomerular Filtration Rate 103 ML/MIN Imaging: Aorta w/Runoff CTA 12/26/17 0000 Signed Impressions: Service Date/Time: Tuesday, December 26, 2017 14:48 - CONCLUSION: Significant atherosclerotic vascular disease with very poor runoff below the common femorals. Sigifredo Kruse MD FACR Foot X-Ray 12/25/17 0000 Signed Impressions: Service Date/Time: Monday, December 25, 2017 16:16 - CONCLUSION: No acute bony findings Jeff Goodman MD Foot MRI 12/25/17 0000 Signed Impressions: Service Date/Time: Monday, December 25, 2017 17:36 - CONCLUSION: Saline should very small plantar fluid collection just above in the fifth metatarsal that does not extend into the deep tissues. No osteoarthritis. No foreign body identified. Sigifredo Kruse MD FACR PHYSICAL EXAMINATION: GENERAL: Patient is in no acute distress. HEENT: Extraocular movements grossly intact. Pupils reactive to light without icterus. Oropharynx: Moist mucosa. No lesions. NECK: Supple without adenopathy. LUNGS: Clear to auscultation. CARDIOVASCULAR: irregular S1, S2. No murmurs, rubs or gallops. ABDOMEN: Bowel sounds present. Soft, nontender. EXTREMITIES: No clubbing, no cyanosis. The left foot is still present but markedly decreased. 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 ulcer with necrotic scab at the lalteral aspect - base of 5th toe. difficult to palpate anterior tibial pulse. SKIN: No rash. NEUROLOGIC: No gross focal findings. PSYCHIATRIC: Pleasant calm and cooperative. IMPRESSION: 1. Cellulitis of the left foot due to Pseudomonas. 2. Left foot ulcer. 3. Peripheral vascular disease. Now post left femoral endarterectomy. RECOMMENDATIONS: 1. Continue piperacillin/tazobactam for now. transition to PO when ready for discharge. 2. Monitor the wound response to antibiotics. Tab Velázquez MD December 30, 2017 11:43
[2017-12-30] MEDS: guaiFENesin E.R. 600 MG TAB PO SCH ×2 (13:20→21:38)
[2017-12-30] MEDS: RESP: ALBUTEROL 2.5 MG/IPRATROPIUM 0.5 MG NEB (PRN) NEB (16:56)
[2017-12-30] MEDS: DOXAZOSIN MESYLATE 4 MG TAB PO SCH (21:38)
[2017-12-30] MEDS: ATORVASTATIN 80 MG TAB PO SCH (21:38)
[2017-12-30] MEDS: FINASTERIDE 5 MG TAB PO SCH (21:38)
[2017-12-30] MEDS: PANTOPRAZOLE SOD 20 MG DELAYED RELEASE TAB PO SCH (21:38)
[2017-12-30 22:11] LABS: INTERNATIONAL NORMALIZED RATIO 1.3 RATIO; PROTHROMBIN TIME - PATIENT 12.9 SEC (9.8-11.6)
[2017-12-31] VITALS (27 sets, daily range): BP systolic 42–177; BP diastolic 63–88; PULSE 75–99; RESP 16–20; TEMP 97.5–98.2; O2SAT 92–98
[2017-12-31] MEDS: RESP: ALBUTEROL 2.5 MG/IPRATROPIUM 0.5 MG NEB (PRN) NEB ×3 (04:11→20:49)
[2017-12-31] MEDS: PIPERACIL-TAZO 4.5 GM PREMIX 100 ML IV SCH ×4 (04:29→23:30)
[2017-12-31] MEDS: ACETAMINOPHEN/HYDROcodone 325 MG/5 MG TAB PO PRN ×4 (04:30→23:52)
[2017-12-31 06:54] LABS: BICARBONATE 26.4 MEQ/L (21.0-32.0); CALCIUM 8.1 MG/DL (8.5-10.1); CREATININE 0.91 MG/DL (0.60-1.30)
[2017-12-31 07:07] LABS: AUTOMATED NEUTROPHIL # 5.8 TH/MM3 (1.8-7.7); BASOPHIL % 0.2 % (0.0-2.0); EOSINOPHIL % 0.6 % (0.0-4.0); HEMATOCRIT 33.9 % (39.0-51.0); HEMOGLOBIN 11.2 GM/DL (13.0-17.0); LYMPH % 13.4 % (9.0-44.0); MEAN CORPUSCULAR HEMOGLOBIN 29.2 PG (27.0-34.0); MEAN CORPUSCULAR HGB CONC 33.1 % (32.0-36.0); MEAN PLATELET VOLUME 8.8 FL (7.0-11.0); MONOCYTE # 0.7 TH/MM3 (0-0.9); NEUT % 76.8 % (16.0-70.0); PLATELET COUNT 157 TH/MM3 (150-450); RED BLOOD COUNT 3.85 MIL/MM3 (4.50-5.90); RED CELL DISTRIBUTION WIDTH 15.6 % (11.6-17.2); WHITE BLOOD COUNT 7.6 TH/MM3 (4.0-11.0)
[2017-12-31] MEDS: TIOTROPIUM BROMIDE 18 MCG INH INH SCH (08:10)
[2017-12-31] MEDS: GABAPENTIN 300 MG CAP PO SCH ×2 (08:10→19:44)
[2017-12-31] MEDS: METOPROLOL TARTRATE 25 MG TAB PO SCH ×2 (08:10→19:45)
[2017-12-31] MEDS: guaiFENesin E.R. 600 MG TAB PO SCH ×2 (08:10→19:44)
[2017-12-31] MEDS: BUDESONIDE-FORMOTEROL 80/4.5 MCG INHALER INH SCH ×2 (08:10→19:47)
[2017-12-31] MEDS: MULTIVITAMIN TAB PO SCH (08:10)
[2017-12-31] MEDS ORDERED: fentaNYL CITRATE 250 MCG/5 ML AMP ONE (08:58)
[2017-12-31] MEDS ORDERED: MIDAZOLAM HCL 5 MG/5 ML VIAL ONE (08:58)
[2017-12-31] MEDS: APIXABAN 5 MG TABLET PO SCH ×2 (09:01→19:44)
[2017-12-31] MEDS ORDERED: HEPARIN SODIUM - IV 10,000 UNITS/10 ML VIAL ONE (10:00)
[2017-12-31] MEDS ORDERED: IODIXANOL 320 MG/ML 50 ML VIAL (for RAD SPEC) I-ARTERIAL ONE (11:21)
--- NOTE | 2017-12-31 12:50 | RADRPT ---
EXAM DATE/TIME: 12/31/2017 09:11 [place] COMPARISON: No previous studies available for comparison. INDICATIONS : 77-year-old male with history of nonhealing left foot ulcer and occluded popliteal artery. Antegrade recannulization attempt was recently unsuccessful. Patient presents for retrograde pedal recanalizati on attempts. MEDICAL HISTORY : HTN COPD Peripheral artery disease status post stents placed on both lower extremities 15 years ago Hyperlipidemia BPH Neuropathy GERD SURGICAL HISTORY : Aortic valve replacement Gallbladder surgery Stent placements ENCOUNTER: Initial ACUITY: 4-6 days PAIN SCORE: 0/10 LOCATION: N/A FLUORO TIME: 26.3 minutes IMAGE SERIES: 6 ACCESS SITE: Left Doralis pedis artery SEDATION TIME: 60 minutes CONTRAST: 1.) 30 cc Visipaque (iodixanol) MEDICATION(S): 1.) 3 mg midazolam (Versed) IV 2.) 150 mcg fentanyl (Sublimaze) IV 3.) 3000 units Heparin IV PROCEDURE : 1. Ultrasound-guided puncture of the left dorsalis pedis 2. Conscious sedation with continuous EKG and Oximetry monitoring. 3. Limited left artery angiography 4. Extended recannulization attempt of the popliteal artery. The risks, benefits and alternatives to the procedure were explained and verbal and written consent w as obtained. The site was prepped in sterile fashion. Full sterile technique was used, including ca p, mask, sterile gloves and gown and a large sterile sheet. Hand hygiene and 2% chlorhexidine and/or betadine/alcohol prep was utilized per protocol for cutaneous antisepsis. Sterile gel and sterile p robe cover were utilized for ultrasound guidance. The skin and subcutaneous tissues were infiltrated with local anesthetic solution. With ultrasound and fluoroscopic guidance the left dorsalis pedis artery was accessed with a pedal ac cess kit and a 4 [place] introducer was placed. Next, a crossing catheter and the acute wire were adva nced into the below-knee popliteal artery and angiography was performed. This again confirms occlusio n of the popliteal artery to just beyond the level of the knee. The distal popliteal artery is patent . The proximal tibial arteries are patent. Next, an extensive attempt to cross the occluded popliteal artery utilizing a combination of multiple FISH GRADER wires and catheters was unsuccessful due to repeated subintimal access. Procedure was then terminated. Wires and catheters were then removed and hemostasi s obtained at the puncture site with manual compression. The patient tolerated the procedure well and there were no complications. Conscious sedation was performed with the prescribed dosages and duration as above in the presence of an independent trained radiology nurse to assist in the monitoring of the patient. EKG and oximetry remained stable throughout the procedure. CONCLUSION: 1. Occlusion of the left popliteal artery to just beyond the knee joint. The mid to distal below knee popliteal artery is patent. 2. Unsuccessful retrograde pedal recanalization attempt of the occluded popliteal artery. Sage Ambrosio MD on December 31, 2017 at 12:10 Board Certified Radiologist. This report was verified electronically.
[2017-12-31] MEDS: BACITRACIN TOP OINT 15 GM TUBE TOPICAL SCH (13:03)
[2017-12-31] MEDS: cloNIDine HCL 0.1 MG TAB PO PRN (13:03)
--- NOTE | 2017-12-31 15:00 | HHI.PR ---
Subjective Remarks Pt disappointed that today's procedure was unsuccessful. He wants to know what the next step is. Pain is controlled. was eating lunch when I saw him and denies any nausea or vomiting. Objective Vitals Vital Signs Date Time Temp Pulse Resp B/P (MAP) Pulse Ox O2 Delivery O2 Flow Rate FiO2 12/31/17 14:22 82 16 124/71 (88) 95 12/31/17 14:00 81 12/31/17 13:55 80 16 159/75 (103) 97 12/31/17 13:32 77 16 152/78 (102) 97 12/31/17 13:00 75 12/31/17 12:52 97.8 89 16 177/81 (113) 92 12/31/17 12:52 92 Nasal Cannula 4.00 12/31/17 12:25 84 16 172/84 (113) 98 12/31/17 12:10 77 16 172/82 (112) 98 12/31/17 11:55 77 16 161/86 (111) 98 12/31/17 11:40 82 16 164/88 (113) 96 12/31/17 11:10 97.7 81 16 154/80 (104) 93 12/31/17 08:00 84 12/31/17 07:43 94 Nasal Cannula 2.00 12/31/17 07:43 98.0 83 18 42/69 (60) 92 12/31/17 07:00 92 12/31/17 06:00 95 12/31/17 05:58 99 12/31/17 04:00 98.2 88 18 140/64 (89) 92 12/31/17 04:00 98 Nasal Cannula 12/31/17 04:00 88 12/31/17 02:00 85 12/31/17 01:00 87 12/31/17 00:00 98.2 87 18 165/82 (109) 98 12/31/17 00:00 87 12/31/17 00:00 98 Nasal Cannula 12/30/17 19:00 85 12/30/17 19:00 97 Nasal Cannula 12/30/17 19:00 98.2 82 18 144/70 (94) 97 12/30/17 18:08 96 12/30/17 17:56 87 12/30/17 16:59 94 Nasal Cannula 4.00 12/30/17 16:43 18 5/16/18 16:03 82 12/30/17 15:06 98.0 88 18 124/63 (83) 95 12/30/17 15:06 87 12/30/17 15:06 95 Room Air I/O 12/30/17 12/30/17 12/30/17 12/31/17 12/31/17 12/31/17 07:00 15:00 23:00 07:00 15:00 23:00 Intake Total 920 ml 700 ml 600 ml 100 ml Output Total 1175 ml 400 ml 905 ml Balance -255 ml 300 ml -305 ml 100 ml Intake Oral 720 ml 600 ml 600 ml IV Total 200 ml 100 ml 100 ml Output Urine Total 1125 ml 400 ml 850 ml Drainage Total 50 ml 55 ml # Bowel Movements 0 0 0 Result Diagram: 12/31/1751812/31/17518 Imaging Last Impressions Lower Extremity Angiography 12/31/17 0000 Signed Impressions: Service Date/Time: December 09:11 - CONCLUSION: 1. Occlusion of the left popliteal artery to just beyond the knee joint. The mid to distal below knee popliteal artery is patent. 2. Unsuccessful retrograde pedal recanalization attempt of the occluded popliteal artery. Sage Ambrosio MD Chest X-Ray 12/30/17 0600 Signed Impressions: Service Date/Time: Saturday, December 30, 2017 03:51 - CONCLUSION: 1. Chronic interstitial changes. 2. No acute infiltrate or effusion. Kimo Crocker Jr., MD Aorta w/Runoff CTA 12/26/17 0000 Signed Impressions: Service Date/Time: Tuesday, December 26, 2017 14:48 - CONCLUSION: Significant atherosclerotic vascular disease with very poor runoff below the common femorals. Sigifredo Kruse MD FACR Foot X-Ray 12/25/17 0000 Signed Impressions: Service Date/Time: Monday, December 25, 2017 16:16 - CONCLUSION: No acute bony findings Jeff Goodman MD Foot MRI 12/25/17 0000 Signed Impressions: Service Date/Time: Monday, December 25, 2017 17:36 - CONCLUSION: Saline should very small plantar fluid collection just above in the fifth metatarsal that does not extend into the deep tissues. No osteoarthritis. No foreign body identified. Sigifredo Kruse MD FACR Objective Remarks wound noted on the left foot. no draining, some erythema still noted. Patient was otherwise awake alert. eating lunch lungs w no wheezing heart w rrr w no obvious murmurs A/P Assessment and Plan 77-year-old male presenting with Left foot infected wound with cellulitis -Status post bedside debridement, MRI of the foot with Pseudomonas cellulitis per podiatry shows no new abscess, just pre-existing infection. vascular sx following pt and pt is POD 2 from External iliac and common femoral endarterectomy patch, bovine patch angioplasty and attempted popliteal artery angioplasty and angiograms with a runoff. MILTON drain in place, serosanguineous fluid noted. Vascular intervention required prior to any further debridement from podiatry (no further intervention until circulation has improved). Pt was evaluated by IR today and underwent retrograde pedal recanalization attempt of the occluded popliteal artery which was unfortunately unsuccessful. Awaiting further recs from vasc sx. -continue Zosyn per infectious disease and transition to PO when cleared for d/c Hemoptysis -New problems since 2 nights ago, however no new episode reported to my by pt today. repeat chest xray w chronic interstitial changes and no acute infiltrates or effusion. Currently on zosyn per ID recs Peripheral arterial disease -Continue with Lipitor 80 mg History of hypertension- some occasional elevated readings History of atrial fibrillation rate controlled. Eliquis Hyperlipidemia Continue on cardiac meds Lopressor Cardura and statins BPH. Continue on Cardura and Proscar GERD continue on omeprazole Neuropathy. Continue on gabapentin DVT prophylaxis patient on Eliquis Patient on PPI for GERD Discharge Planning Awaiting recs from vascular sx as IR procedure was unsuccessful. Podiatry also following and awaiting their recs. ID to give final recs regarding Abx. Francine Rankin MD December 31, 2017 15:00
--- NOTE | 2017-12-31 16:03 | PD.CAR.PN ---
CVT Progress Note Subjective/Hospital Course: Patient seen Full consult MARY Pete 12/28/2017 I have reviewed the CTA on this patient and compared to clinical findings. 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 Both groins i.e. distal external iliac arteries, common femoral arteries and superficial femoral arteries are nearly occluded In addition patient has severe disease throughout the SFA bilaterally and then into the popliteal with essentially single vessel runoff to the foot and interrupted trifurcation vessels Options here a very limited. Improving the inflow would require either aortobifemoral bypass for which patient is clearly not a candidate or axillo- bifemoral bypass for which patient is a poor candidate Even then the stenotic areas are throughout the both outflow vessels and this is flow limiting factor. Given the patient's age, frail clinical status and comorbidities, I believe the best way to deal with this would be left common femoral and superficial femoral artery endarterectomy and endovascular approach to SFA and popliteal artery by combination of arthrectomy and balloon angioplasty. Right side does not look any better but is currently not a problem clinically The above we will give the patient reasonable chance of at least temporizing the further ischemia to the foot and give him a chance to keep the foot. There is still a high likelihood that patient will eventually require below- knee amputation no matter what we do and have explained to the patient in detail We will proceed with open and endovascular component of surgery tomorrow 12/30/2017 Patient doing well status post femoral endarterectomy Foot is warm and the patient definitely has dopplerable pulses and posterior tibial artery Capillary refill is somewhat delayed but definitely better than it was prior to surgery I discussed the case with interventional radiology and we will try to open the popliteal artery from below up probably on or Thursday in the interventional radiology suite Patient can transfer to floor Out of bed ambulate as tolerated Eliquis resumed last night 12/31/2017 Foot is nice and warm patient is ambulating Incision in the groin is clean and dry Evaluated attempt by interventional radiology to retrograde angioplasty the popliteal artery but unfortunately this is occluded and cannot be accessed even from below Nonetheless patient has better inflow and better collateral flow at this point Nothing to add to care and for my point patient can be discharged any time Objective: Vital Signs Date Time Temp Pulse Resp B/P (MAP) Pulse Ox O2 Delivery O2 Flow Rate FiO2 12/31/17 15:38 93 Nasal Cannula 4.00 12/31/17 15:30 78 16 128/63 (84) 96 12/31/17 15:20 97.7 86 20 128/63 (84) 94 12/31/17 15:20 94 Nasal Cannula 2.00 12/31/17 15:00 88 12/31/17 14:22 82 16 124/71 (88) 95 12/31/17 14:00 81 12/31/17 13:55 80 16 159/75 (103) 97 12/31/17 13:32 77 16 152/78 (102) 97 12/31/17 13:00 75 12/31/17 12:52 97.8 89 16 177/81 (113) 92 12/31/17 12:52 92 Nasal Cannula 4.00 12/31/17 12:25 84 16 172/84 (113) 98 12/31/17 12:10 77 16 172/82 (112) 98 12/31/17 11:55 77 16 161/86 (111) 98 12/31/17 11:40 82 16 164/88 (113) 96 12/31/17 11:10 97.7 81 16 154/80 (104) 93 12/31/17 08:00 84 12/31/17 07:43 94 Nasal Cannula 2.00 12/31/17 07:43 98.0 83 18 42/69 (60) 92 12/31/17 07:00 92 12/31/17 06:00 95 12/31/17 05:58 99 12/31/17 04:00 98.2 88 18 140/64 (89) 92 12/31/17 04:00 98 Nasal Cannula 12/31/17 04:00 88 12/31/17 02:00 85 12/31/17 01:00 87 12/31/17 00:00 98.2 87 18 165/82 (109) 98 12/31/17 00:00 87 12/31/17 00:00 98 Nasal Cannula 12/30/17 19:00 85 12/30/17 19:00 97 Nasal Cannula 12/30/17 19:00 98.2 82 18 144/70 (94) 97 12/30/17 18:08 96 12/30/17 17:56 87 12/30/17 16:59 94 Nasal Cannula 4.00 5/16/18 16:43 18 12/30/17 16:03 82 Labs: Laboratory Tests Test 12/31/17 05:19 White Blood Count 7.6 TH/MM3 (4.0-11.0) Red Blood Count 3.85 MIL/MM3 (4.50-5.90) Hemoglobin 11.2 GM/DL (13.0-17.0) Hematocrit 33.9 % (39.0-51.0) Mean Corpuscular Volume 88.0 FL (80.0-100.0) Mean Corpuscular Hemoglobin 29.2 PG (27.0-34.0) Mean Corpuscular Hemoglobin Concent 33.1 % (32.0-36.0) Red Cell Distribution Width 15.6 % (11.6-17.2) Platelet Count 157 TH/MM3 (150-450) Mean Platelet Volume 8.8 FL (7.0-11.0) Neutrophils (%) (Auto) 76.8 % (16.0-70.0) Lymphocytes (%) (Auto) 13.4 % (9.0-44.0) Monocytes (%) (Auto) 9.0 % (0.0-8.0) Eosinophils (%) (Auto) 0.6 % (0.0-4.0) Basophils (%) (Auto) 0.2 % (0.0-2.0) Neutrophils # (Auto) 5.8 TH/MM3 (1.8-7.7) Lymphocytes # (Auto) 1.0 TH/MM3 (1.0-4.8) Monocytes # (Auto) 0.7 TH/MM3 (0-0.9) Eosinophils # (Auto) 0.0 TH/MM3 (0-0.4) Basophils # (Auto) 0.0 TH/MM3 (0-0.2) CBC Comment DIFF FINAL Differential Comment Blood Urea Nitrogen 11 MG/DL (7-18) Creatinine 0.91 MG/DL (0.60-1.30) Random Glucose 84 MG/DL (74-106) Calcium Level 8.1 MG/DL (8.5-10.1) Sodium Level 144 MEQ/L (136-145) Potassium Level 3.5 MEQ/L (3.5-5.1) Chloride Level 110 MEQ/L (98-107) Carbon Dioxide Level 26.4 MEQ/L (21.0-32.0) Anion Gap 8 MEQ/L (5-15) Estimat Glomerular Filtration Rate 81 ML/MIN (>89) Result Diagram: 12/31/17 0519 12/31/17 0519 Abhishek Cruz MD December 31, 2017 16:02
[2017-12-31] MEDS: FINASTERIDE 5 MG TAB PO SCH (19:44)
[2017-12-31] MEDS: PANTOPRAZOLE SOD 20 MG DELAYED RELEASE TAB PO SCH (19:45)
[2017-12-31] MEDS: ATORVASTATIN 80 MG TAB PO SCH (19:45)
[2017-12-31] MEDS: DOXAZOSIN MESYLATE 4 MG TAB PO SCH (20:33)
[2018-01-01] VITALS: BP 121/67; PULSE 76; RESP 20; TEMP 97.7; O2SAT 94
[2018-01-01] MEDS ORDERED: BISACODYL 10 MG SUPP RECTAL PRN (02:15)
[2018-01-01] MEDS ORDERED: SENNOSIDES 8.6 MG TAB PO PRN (02:15)
[2018-01-01] MEDS ORDERED: MAGNESIUM HYDROXIDE SUSP 30 ML CUP PO PRN (02:15)
[2018-01-01] MEDS ORDERED: LACTULOSE SYRUP 20 GM/30 ML CUP PO PRN (02:15)
[2018-01-01] MEDS: DOCUSATE SODIUM 50 MG/SENNA 8.6 MG TAB PO SCH ×3 (02:19→20:40)
[2018-01-01] MEDS: PIPERACIL-TAZO 4.5 GM PREMIX 100 ML IV SCH ×2 (05:27→12:12)
[2018-01-01 08:00] VITALS: BP 149/75; PULSE 89; RESP 20; TEMP 98.3; O2SAT 93
[2018-01-01] MEDS: TIOTROPIUM BROMIDE 18 MCG INH INH SCH (09:33)
[2018-01-01] MEDS: guaiFENesin E.R. 600 MG TAB PO SCH ×2 (09:33→20:40)
[2018-01-01] MEDS: MULTIVITAMIN TAB PO SCH (09:33)
[2018-01-01] MEDS: APIXABAN 5 MG TABLET PO SCH ×2 (09:33→20:40)
[2018-01-01] MEDS: METOPROLOL TARTRATE 25 MG TAB PO SCH ×2 (09:33→20:40)
[2018-01-01] MEDS: GABAPENTIN 300 MG CAP PO SCH ×2 (09:33→20:40)
[2018-01-01] MEDS: BUDESONIDE-FORMOTEROL 80/4.5 MCG INHALER INH SCH ×2 (09:34→20:46)
[2018-01-01] MEDS: RESP: ALBUTEROL 2.5 MG/IPRATROPIUM 0.5 MG NEB (PRN) NEB (11:19)
[2018-01-01 12:00] VITALS: BP 162/72; PULSE 108; RESP 19; TEMP 97.8; O2SAT 92
[2018-01-01] MEDS: BACITRACIN TOP OINT 15 GM TUBE TOPICAL SCH (12:12)
[2018-01-01] MEDS ORDERED: RESP: ACETYLCYSTEINE 10% 30 ML NEB NEB ONE (12:30)
--- NOTE | 2018-01-01 12:32 | HHI.IDPN ---
Note Infectious Disease Note Patient in no acute distress. Notes that he has very little pain in the left foot. Afebrile. No further hemoptysis. Still has redness at the base of the toes left foot. Patient is post femoral endarterectomy. PAST MEDICAL HISTORY: Hypertension, hyperlipidemia, COPD, BPH, neuropathy, gastroesophageal reflux disease, aortic valve replacement with tissue valve in 2017, peripheral arterial disease, history of stent placement in the lower extremities, cholecystectomy, history of incisional hernia. ALLERGIES: LISINOPRIL. MEDICATIONS Current Medications Medications (Trade) Dose Ordered Sig/Kevin Route PRN Reason Start Time Stop Time Status Last Admin Dose Admin Bacitracin (Baciguent Oint) 1 applic DAILY TOPICAL 12/25/17 18:00 01/01/18 12:12 Acetaminophen/ Hydrocodone Bitart ([place] 5-325 Mg) 1 tab Q4H PRN PO PAIN SCALE 1 TO 4 12/25/17 16:30 12/31/17 23:52 Acetaminophen/ Hydrocodone Bitart ([place] 5-325 Mg) 2 tab Q4H PRN PO PAIN SCALE 5 TO 7 12/25/17 16:30 12/31/17 19:46 Atorvastatin Calcium (Lipitor) 80 mg HS PO 12/25/17 21:00 12/31/17 19:45 Doxazosin Mesylate (Cardura) 4 mg HS PO 12/25/17 21:00 12/31/17 20:33 Finasteride (Proscar) 5 mg HS PO 12/25/17 21:00 12/31/17 19:44 Gabapentin (Neurontin) 300 mg BID PO 12/25/17 21:00 01/01/18 09:33 Metoprolol Tartrate (Lopressor) 25 mg BID PO 12/25/17 21:00 01/01/18 09:33 Tiotropium [place] (Spiriva Inh) 18 mcg DAILY INH 12/26/17 09:00 01/01/18 09:33 Budesonide/ Formoterol Fumarate (Symbicort 80-4.5 Mcg Inh) 2 puff BID INH 12/25/17 21:00 01/01/18 09:34 Patient Own Medication PT OWN MED: (Levalbuterol 15 GM ... Q4H INH 12/25/17 16:45 Future Hold Multivitamins (Theragran) 1 tab DAILY PO 12/26/17 09:00 01/01/18 09:33 Pantoprazole Sodium (Protonix) 20 mg HS PO 12/25/17 21:00 12/31/17 19:45 Piperacillin Sod/ Tazobactam Sod 100 ml @ 200 mls/hr Q6H IV 12/26/17 17:00 01/01/18 12:12 Clonidine (Catapres) 0.1 mg Q6H PRN PO SBP>160, DBP>90 12/26/17 17:15 12/31/17 13:03 Albuterol/ Ipratropium (Duoneb Neb) 1 ampule Q2HR NEB PRN NEB sob 12/28/17 02:00 01/01/18 11:19 Apixaban (Eliquis) 5 mg BID PO 12/29/17 21:00 01/01/18 09:33 Guaifenesin (Mucinex Er) 600 mg BID PO 12/30/17 13:15 01/01/18 09:33 Senna/Docusate Sodium (Ana-Colace) 1 tab BID PO 01/01/18 02:15 01/01/18 09:33 Magnesium Hydroxide (Milk Of Magnesia Liq) 30 ml Q12H PRN PO Mild constipation 01/01/18 02:15 Sennosides (Senokot) 17.2 mg Q12H PRN PO Moderate constipation 01/01/18 02:15 Bisacodyl (Dulcolax Supp) 10 mg DAILY PRN RECTAL SEVERE CONSITIPATION 01/01/18 02:15 Lactulose (Lactulose Liq) 30 ml DAILY PRN PO SEVERE CONSITIPATION 01/01/18 02:15 Acetylcysteine (Mucomyst 10% Neb) 2 ml ONCE ONCE NEB 01/01/18 12:30 01/01/18 12:31 SOCIAL HISTORY: The patient moved to [place] approximately 5 years ago from [place]. No tobacco. Occasional alcohol. No illicit drugs. FAMILY HISTORY: Noncontributory. Objective: Vital Signs Date Time Temp Pulse Resp B/P (MAP) Pulse Ox O2 Delivery O2 Flow Rate FiO2 01/01/18 10:38 Nasal Cannula 4.00 01/01/18 08:00 98.3 89 20 149/75 (99) 93 01/01/18 00:00 97.7 76 20 121/67 (85) 94 12/31/17 20:00 97.7 95 20 130/71 (90) 96 12/31/17 19:48 96 Nasal Cannula 3.00 12/31/17 18:38 97.5 89 18 158/70 (99) 95 12/31/17 16:00 97.9 92 18 140/65 (90) 92 12/31/17 15:38 93 Nasal Cannula 4.00 12/31/17 15:30 78 16 128/63 (84) 96 12/31/17 15:20 97.7 86 20 128/63 (84) 94 12/31/17 15:20 94 Nasal Cannula 2.00 12/31/17 15:00 88 12/31/17 14:22 82 16 124/71 (88) 95 12/31/17 14:00 81 12/31/17 13:55 80 16 159/75 (103) 97 12/31/17 13:32 77 16 152/78 (102) 97 12/31/17 13:00 75 12/31/17 12:52 97.8 89 16 177/81 (113) 92 12/31/17 12:52 92 Nasal Cannula 4.00 Laboratory Tests Test 12/31/17 05:19 White Blood Count 7.6 TH/MM3 Red Blood Count 3.85 MIL/MM3 Hemoglobin 11.2 GM/DL Hematocrit 33.9 % Mean Corpuscular Volume 88.0 FL Mean Corpuscular Hemoglobin 29.2 PG Mean Corpuscular Hemoglobin Concent 33.1 % Red Cell Distribution Width 15.6 % Platelet Count 157 TH/MM3 Mean Platelet Volume 8.8 FL Neutrophils (%) (Auto) 76.8 % Lymphocytes (%) (Auto) 13.4 % Monocytes (%) (Auto) 9.0 % Eosinophils (%) (Auto) 0.6 % Basophils (%) (Auto) 0.2 % Neutrophils # (Auto) 5.8 TH/MM3 Lymphocytes # (Auto) 1.0 TH/MM3 Monocytes # (Auto) 0.7 TH/MM3 Eosinophils # (Auto) 0.0 TH/MM3 Basophils # (Auto) 0.0 TH/MM3 CBC Comment DIFF FINAL Differential Comment Laboratory Tests Test 12/31/17 05:19 Blood Urea Nitrogen 11 MG/DL Creatinine 0.91 MG/DL Random Glucose 84 MG/DL Calcium Level 8.1 MG/DL Sodium Level 144 MEQ/L Potassium Level 3.5 MEQ/L Chloride Level 110 MEQ/L Carbon Dioxide Level 26.4 MEQ/L Anion Gap 8 MEQ/L Estimat Glomerular Filtration Rate 81 ML/MIN Imaging: Lower Extremity Angiography 12/31/17 0000 Signed Impressions: Service Date/Time: December 09:11 - CONCLUSION: 1. Occlusion of the left popliteal artery to just beyond the knee joint. The mid to distal below knee popliteal artery is patent. 2. Unsuccessful retrograde pedal recanalization attempt of the occluded popliteal artery. Sage Ambrosio MD Chest X-Ray 12/28/17 0000 Signed Impressions: Service Date/Time: Thursday, December 28, 2017 21:14 - CONCLUSION: Patchy bilateral infiltrates. Jeff Goodman MD Aorta w/Runoff CTA 12/26/17 0000 Signed Impressions: Service Date/Time: Tuesday, December 26, 2017 14:48 - CONCLUSION: Significant atherosclerotic vascular disease with very poor runoff below the common femorals. Sigifredo Kruse MD FACR Foot X-Ray 12/25/17 0000 Signed Impressions: Service Date/Time: Monday, December 25, 2017 16:16 - CONCLUSION: No acute bony findings Jeff Goodman MD Foot MRI 12/25/17 0000 Signed Impressions: Service Date/Time: Monday, December 25, 2017 17:36 - CONCLUSION: Saline should very small plantar fluid collection just above in the fifth metatarsal that does not extend into the deep tissues. No osteoarthritis. No foreign body identified. Sigifredo Kruse MD FACR PHYSICAL EXAMINATION: GENERAL: No acute distress. Awake and alert. HEENT: Extraocular movements grossly intact. Pupils reactive to light without icterus. Oropharynx: Moist mucosa. No lesions. NECK: Supple without adenopathy. LUNGS: Decreased breath sounds. No rhonchi. CARDIOVASCULAR: Irregular S1, S2. No murmurs, rubs or gallops. ABDOMEN: Bowel sounds present. Soft, nontender. EXTREMITIES: No clubbing, no cyanosis. The left foot still has erythema dorsum of the foot at the base of toes 2 3 and 4. SKIN: No rash. NEUROLOGIC: No gross focal findings. PSYCHIATRIC: Calm and cooperative. IMPRESSION: 1. Cellulitis of the left foot due to Pseudomonas. Slow to improve. 2. Left foot ulcer without drainage. 3. Peripheral vascular disease. Occluded popliteal artery. 4. Abnormal CXR. Chronic changes without evidence of pneumonia. RECOMMENDATIONS: 1. Change piperacillin/tazobactam to Levaquin p.o. for discharge 750 mg daily 2 weeks. Follow-up with Dr. Sewell infectious disease in 1 week. Tab Velázquez MD January 01, 2018 12:32
[2018-01-01] MEDS ORDERED: RESP: ACETYLCYSTEINE 10% 10 ML NEB NEB PRN (13:15)
[2018-01-01] MEDS ORDERED: methylPREDNISolone SOD SUCC 125 MG/2 ML VIAL IV PUSH ONE (13:15)
--- NOTE | 2018-01-01 13:20 | HHI.PR ---
Subjective Remarks Nursing reports that the patient is desaturating down to 89% on room air and takes a while before he gets up to just 90% on room air. Otherwise he is on 4 L. Patient himself says chronic cough is somewhat worse than usual and is productive now. Left lower leg he thinks is unremarkable now, improved. Objective Vital Signs Date Time Temp Pulse Resp B/P (MAP) Pulse Ox O2 Delivery O2 Flow Rate FiO2 01/01/18 12:00 97.8 108 19 162/72 (102) 92 01/01/18 10:38 Nasal Cannula 4.00 01/01/18 08:00 98.3 89 20 149/75 (99) 93 01/01/18 00:00 97.7 76 20 121/67 (85) 94 12/31/17 20:00 97.7 95 20 130/71 (90) 96 12/31/17 19:48 96 Nasal Cannula 3.00 12/31/17 18:38 97.5 89 18 158/70 (99) 95 12/31/17 16:00 97.9 92 18 140/65 (90) 92 12/31/17 15:38 93 Nasal Cannula 4.00 12/31/17 15:30 78 16 128/63 (84) 96 12/31/17 15:20 97.7 86 20 128/63 (84) 94 12/31/17 15:20 94 Nasal Cannula 2.00 12/31/17 15:00 88 12/31/17 14:22 82 16 124/71 (88) 95 12/31/17 14:00 81 12/31/17 13:55 80 16 159/75 (103) 97 12/31/17 13:32 77 16 152/78 (102) 97 I/O 12/31/17 12/31/17 12/31/17 01/01/18 01/01/18 01/01/18 07:00 15:00 23:00 07:00 15:00 23:00 Intake Total 600 ml 100 ml 940 ml 200 ml Output Total 905 ml 855 ml Balance -305 ml 100 ml 85 ml 200 ml Intake Oral 600 ml 840 ml IV Total 100 ml 100 ml 200 ml Output Urine Total 850 ml 750 ml Drainage Total 55 ml 105 ml # Bowel Movements 0 0 Result Diagram: 12/31/1751812/31/17518 Objective Remarks Left foot and wound care dressing, mild erythema is noted protruding from underneath the gauze dressing. Patient was otherwise awake alert. Left foot is actually warm and good color Has scattered rhonchi bilaterally, is having frequent coughing spells that sound wet Outside of coughing spells he does not have labored breathing A/P Assessment and Plan 77-year-old male admitted for left foot infection Acute hypoxic respiratory failure -Likely COPD exacerbation with mucous plugging, will start steroids albuterol and Mucomyst. I independently reviewed the repeat chest x-ray and it shows no new changes, as the diffuse infiltrates possibly suggestive of pneumonia versus fluid overload. Obtaining BNP, cardiac echo as well as starting low dose Lasix in case there is true pulmonary edema. Hemoptysis -No recurrence, monitor Left foot infected wound with cellulitis -Status post bedside debridement, MRI of the foot with Pseudomonas cellulitis per podiatry shows no new abscess. Podiatry good reperfusion intervention. Cautious on intervening again prior to. -Has been switched over to Levaquin by infectious disease from [facility] Peripheral arterial disease -Continue with Lipitor -vascular sx following pt and pt is POD 3 from External iliac and common femoral endarterectomy patch, bovine patch angioplasty and attempted popliteal artery angioplasty and angiograms with a runoff. MILTON drain in place, serosanguineous fluid noted. Unsuccessful angioplasty per IR. Vascular surgery has evaluated the patient postprocedure and deems actual clinical improvement, no further intervention warranted per vascular surgery. History of hypertension- some occasional elevated readings History of atrial fibrillation rate controlled. Eliquis Hyperlipidemia Continue on cardiac meds Lopressor Cardura and statins BPH. Continue on Cardura and Proscar GERD continue on omeprazole Neuropathy. Continue on gabapentin DVT prophylaxis patient on Eliquis Casper Sandoval MD January 01, 2018 13:19
--- NOTE | 2018-01-01 13:48 | RADRPT ---
EXAM DATE/TIME: 01/01/2018 13:30 [facility] COMPARISON: CHEST PA & LAT, December 28, 2017, 21:14. INDICATIONS : Short of breath, weakness MEDICAL HISTORY : Chronic obstructive pulmonary disease. SURGICAL HISTORY : Valve replaced ENCOUNTER: Subsequent ACUITY: 4 - 6 days PAIN SCORE: 0/10 LOCATION: Bilateral chest FINDINGS: Cardiomegaly and diffuse interstitial prominence again seen. Cardiac valvular prosthesis is noted. Th ere are degenerative changes of the spine and diffuse atherosclerotic calcification of the aorta. The re is patchy right upper lobe airspace disease. CONCLUSION: Right upper lobe airspace disease and diffuse interstitial prominence again seen. Yousif Rincon MD on January 01, 2018 at 13:46 Board Certified Radiologist. This report was verified electronically.
[2018-01-01] MEDS ORDERED: RESP: ACETYLCYSTEINE 10% 30 ML NEB NEB PRN (14:00)
[2018-01-01] MEDS ORDERED: POTASSIUM CHLORIDE 25 MEQ EFFERVESCENT TAB PO ONE (15:00)
[2018-01-01 15:38] VITALS: BP 147/74; PULSE 105; RESP 18; TEMP 98.4; O2SAT 92
[2018-01-01] MEDS ORDERED: FUROSEMIDE 20 MG/2 ML VIAL IV PUSH ONE (16:00)
--- NOTE | 2018-01-01 16:25 | PD.POD ---
Subjective Pain score: 1 Remarks Left foot pain much better Past Med/Surg/Social History Social History Smoking Status: Former Smoker Objective Vital Signs Vital Signs Date Time Temp Pulse Resp B/P (MAP) Pulse Ox O2 Delivery O2 Flow Rate FiO2 01/01/18 15:38 98.4 105 18 147/74 (98) 92 01/01/18 12:00 97.8 108 19 162/72 (102) 92 01/01/18 10:38 Nasal Cannula 4.00 01/01/18 08:00 98.3 89 20 149/75 (99) 93 01/01/18 00:00 97.7 76 20 121/67 (85) 94 12/31/17 20:00 97.7 95 20 130/71 (90) 96 12/31/17 19:48 96 Nasal Cannula 3.00 12/31/17 18:38 97.5 89 18 158/70 (99) 95 Coded Allergies: lisinopril (Verified Allergy, Severe, INCREASES HEART RATE, 06/22/17) Medications and IVs Administered Medications Medications (Trade) Dose Ordered Sig/Kevin Route PRN Reason Start Time Stop Time Status Last Admin Dose Admin Bacitracin (Baciguent Oint) 1 applic DAILY TOPICAL 12/25/17 18:00 01/01/18 12:12 Acetaminophen/ Hydrocodone Bitart ([place] 5-325 Mg) 1 tab Q4H PRN PO PAIN SCALE 1 TO 4 12/25/17 16:30 12/31/17 23:52 Acetaminophen/ Hydrocodone Bitart ([place] 5-325 Mg) 2 tab Q4H PRN PO PAIN SCALE 5 TO 7 12/25/17 16:30 12/31/17 19:46 Atorvastatin Calcium (Lipitor) 80 mg HS PO 12/25/17 21:00 12/31/17 19:45 Doxazosin Mesylate (Cardura) 4 mg HS PO 12/25/17 21:00 12/31/17 20:33 Finasteride (Proscar) 5 mg HS PO 12/25/17 21:00 12/31/17 19:44 Gabapentin (Neurontin) 300 mg BID PO 12/25/17 21:00 01/01/18 09:33 Metoprolol Tartrate (Lopressor) 25 mg BID PO 12/25/17 21:00 01/01/18 09:33 Tiotropium [place] (Spiriva Inh) 18 mcg DAILY INH 12/26/17 09:00 01/01/18 09:33 Budesonide/ Formoterol Fumarate (Symbicort 80-4.5 Mcg Inh) 2 puff BID INH 12/25/17 21:00 01/01/18 09:34 Multivitamins (Theragran) 1 tab DAILY PO 12/26/17 09:00 01/01/18 09:33 Pantoprazole Sodium (Protonix) 20 mg HS PO 12/25/17 21:00 12/31/17 19:45 Clonidine (Catapres) 0.1 mg Q6H PRN PO SBP>160, DBP>90 12/26/17 17:15 12/31/17 13:03 Apixaban (Eliquis) 5 mg BID PO 12/29/17 21:00 01/01/18 09:33 Guaifenesin (Mucinex Er) 600 mg BID PO 12/30/17 13:15 01/01/18 09:33 Senna/Docusate Sodium (Ana-Colace) 1 tab BID PO 01/01/18 02:15 01/01/18 09:33 Other Results Laboratory Tests Test 12/31/17 05:19 White Blood Count 7.6 TH/MM3 Red Blood Count 3.85 MIL/MM3 Hemoglobin 11.2 GM/DL Hematocrit 33.9 % Mean Corpuscular Volume 88.0 FL Mean Corpuscular Hemoglobin 29.2 PG Mean Corpuscular Hemoglobin Concent 33.1 % Red Cell Distribution Width 15.6 % Platelet Count 157 TH/MM3 Mean Platelet Volume 8.8 FL Neutrophils (%) (Auto) 76.8 % Lymphocytes (%) (Auto) 13.4 % Monocytes (%) (Auto) 9.0 % Eosinophils (%) (Auto) 0.6 % Basophils (%) (Auto) 0.2 % Neutrophils # (Auto) 5.8 TH/MM3 Lymphocytes # (Auto) 1.0 TH/MM3 Monocytes # (Auto) 0.7 TH/MM3 Eosinophils # (Auto) 0.0 TH/MM3 Basophils # (Auto) 0.0 TH/MM3 CBC Comment DIFF FINAL Differential Comment Laboratory Tests Test 12/31/17 05:19 Blood Urea Nitrogen 11 MG/DL Creatinine 0.91 MG/DL Random Glucose 84 MG/DL Calcium Level 8.1 MG/DL Sodium Level 144 MEQ/L Potassium Level 3.5 MEQ/L Chloride Level 110 MEQ/L Carbon Dioxide Level 26.4 MEQ/L Anion Gap 8 MEQ/L Estimat Glomerular Filtration Rate 81 ML/MIN fercho: YVONNE GARNER SR Age/Sex:77/M Attend Dr: Casper Sandoval Unit#: [id number] Status: ADM IN Location: [facility] F72- P Re12/25/17 : 1940 SPECIMEN #: [id number] COSME: 12/25/172 STATUS: COMP RECD: 12/25/[address]: Meena Reyes PT ID: Poli BOX/PROVIDER ID: SOURCE: WOUND COPY TO: Mateo Mckoy MD SPDESC: FOOT NO PRIMARY CARE PHYSICIAN SPDESC: FOOT Chris Roberson MD CLIENT: ORDERED: WOUND CULTURE COMMENTS: Site description: left QUERIES: Method of Collection: SWAB ACT WKST: GS 12/26/17 #1 WOUNDS 12/26/17 #1 Procedure Result Verified Site GRAM STAIN Final 12/26/17-0908 RARE WBC NO ORGANISMS SEEN WOUND CULTURE Final 12/27/17-1038 HEAVY GROWTH PSEUDOMONAS AERUGINOSA HEAVY GROWTH NORMAL SKIN RANDY NO ANAEROBES ISOLATED PSEUD AERU M.I.C. RX --------- --- PIPERCILLIN/TAZOBACTAM <16 S CEFTAZIDIME <1 S CEFEPIME <2 S AZTREONAM <4 S IMIPENEM <1 S GENTAMICIN <4 S TOBRAMYCIN <4 S LEVOFLOXACIN <2 S Physical Exam Remarks Left foot: redness remain however minimal pain. 2cm ulcer of the 5th metatarsal head with mixed fibrotic tissue with early granulation, foot is warm Assessment & Plan A/P Left foot ulcer cellulitis PVD. Status post bedside procedure per Dr. Sim. Status post Vascular intervention- much improved Culture positive for Pseudomonas- ID recs appreciated, start Santyl to change daily, heel WB only, FU out pt once medicine clears. See orders. Eduin Rose DPM January 01, 2018 16:25
[2018-01-01 17:23] LABS: CALCIUM 8.6 MG/DL (8.5-10.1); CREATININE 0.91 MG/DL (0.60-1.30)
[2018-01-01] MEDS: COLLAGENASE OINT 30 GM TUBE TOPICAL SCH (17:51)
--- NOTE | 2018-01-01 18:16 | PD.CAR.PN ---
CVT Progress Note Subjective/Hospital Course: Patient seen Full consult MARY Pete 12/28/2017 I have reviewed the CTA on this patient and compared to clinical findings. 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 Both groins i.e. distal external iliac arteries, common femoral arteries and superficial femoral arteries are nearly occluded In addition patient has severe disease throughout the SFA bilaterally and then into the popliteal with essentially single vessel runoff to the foot and interrupted trifurcation vessels Options here a very limited. Improving the inflow would require either aortobifemoral bypass for which patient is clearly not a candidate or axillo- bifemoral bypass for which patient is a poor candidate Even then the stenotic areas are throughout the both outflow vessels and this is flow limiting factor. Given the patient's age, frail clinical status and comorbidities, I believe the best way to deal with this would be left common femoral and superficial femoral artery endarterectomy and endovascular approach to SFA and popliteal artery by combination of arthrectomy and balloon angioplasty. Right side does not look any better but is currently not a problem clinically The above we will give the patient reasonable chance of at least temporizing the further ischemia to the foot and give him a chance to keep the foot. There is still a high likelihood that patient will eventually require below- knee amputation no matter what we do and have explained to the patient in detail We will proceed with open and endovascular component of surgery tomorrow 12/30/2017 Patient doing well status post femoral endarterectomy Foot is warm and the patient definitely has dopplerable pulses and posterior tibial artery Capillary refill is somewhat delayed but definitely better than it was prior to surgery I discussed the case with interventional radiology and we will try to open the popliteal artery from below up probably on or Thursday in the interventional radiology suite Patient can transfer to floor Out of bed ambulate as tolerated Eliquis resumed last night 12/31/2017 Foot is nice and warm patient is ambulating Incision in the groin is clean and dry Evaluated attempt by interventional radiology to retrograde angioplasty the popliteal artery but unfortunately this is occluded and cannot be accessed even from below Nonetheless patient has better inflow and better collateral flow at this point Nothing to add to care and for my point patient can be discharged any time 12/29/2017 Foot nice and warm incision clean and dry Nothing to add to care Patient follow-up with my office in about a month Objective: Vital Signs Date Time Temp Pulse Resp B/P (MAP) Pulse Ox O2 Delivery O2 Flow Rate FiO2 01/01/18 15:38 98.4 105 18 147/74 (98) 92 01/01/18 12:00 97.8 108 19 162/72 (102) 92 01/01/18 10:38 Nasal Cannula 4.00 01/01/18 08:00 98.3 89 20 149/75 (99) 93 01/01/18 00:00 97.7 76 20 121/67 (85) 94 12/31/17 20:00 97.7 95 20 130/71 (90) 96 12/31/17 19:48 96 Nasal Cannula 3.00 12/31/17 18:38 97.5 89 18 158/70 (99) 95 Labs: Laboratory Tests Test 01/01/18 16:30 Blood Urea Nitrogen 9 MG/DL (7-18) Creatinine 0.91 MG/DL (0.60-1.30) Random Glucose 105 MG/DL (74-106) Calcium Level 8.6 MG/DL (8.5-10.1) Sodium Level 142 MEQ/L (136-145) Potassium Level 3.5 MEQ/L (3.5-5.1) Chloride Level 105 MEQ/L (98-107) Carbon Dioxide Level 25.0 MEQ/L (21.0-32.0) Anion Gap 12 MEQ/L (5-15) Estimat Glomerular Filtration Rate 81 ML/MIN (>89) B-Type Natriuretic Peptide 314 PG/ML (0-100) Result Diagram: 12/31/17 0519 01/01/18 1630 Abhishek Cruz MD January 01, 2018 18:16
[2018-01-01] MEDS: ACETAMINOPHEN/HYDROcodone 325 MG/5 MG TAB PO PRN (19:37)
[2018-01-01 20:00] VITALS: BP 139/76; PULSE 120; RESP 20; TEMP 97.4; O2SAT 94
[2018-01-01] MEDS: FINASTERIDE 5 MG TAB PO SCH (20:40)
[2018-01-01] MEDS: DOXAZOSIN MESYLATE 4 MG TAB PO SCH (20:40)
[2018-01-01] MEDS: PANTOPRAZOLE SOD 20 MG DELAYED RELEASE TAB PO SCH (20:40)
[2018-01-01] MEDS: ATORVASTATIN 80 MG TAB PO SCH (20:40)
[2018-01-01] MEDS: methylPREDNISolone SOD SUCC 125 MG/2 ML VIAL IV PUSH SCH (20:41)
[2018-01-01 21:09] VITALS: O2SAT 92
[2018-01-01] MEDS: RESP: ALBUTEROL 2.5 MG/IPRATROPIUM 0.5 MG NEB (SCH) NEB (21:09)
[2018-01-02] VITALS: BP 133/66; PULSE 106; RESP 20; O2SAT 95
[2018-01-02 08:00] VITALS: BP 161/77; PULSE 94; RESP 18; TEMP 97.9; O2SAT 96
[2018-01-02 08:37] VITALS: O2SAT 98
[2018-01-02] MEDS: RESP: ALBUTEROL 2.5 MG/IPRATROPIUM 0.5 MG NEB (SCH) NEB (08:37)
[2018-01-02] MEDS: BUDESONIDE-FORMOTEROL 80/4.5 MCG INHALER INH SCH (09:00)
[2018-01-02] MEDS: COLLAGENASE OINT 30 GM TUBE TOPICAL SCH (09:00)
[2018-01-02] MEDS: DOCUSATE SODIUM 50 MG/SENNA 8.6 MG TAB PO SCH (09:00)
[2018-01-02] MEDS ORDERED: LEVOFLOXACIN 750 MG TAB PO SCH (09:00)
[2018-01-02] MEDS ORDERED: POTASSIUM CHLORIDE 25 MEQ EFFERVESCENT TAB PO SCH (09:00)
[2018-01-02] MEDS ORDERED: FUROSEMIDE 20 MG/2 ML VIAL IV PUSH SCH (09:00)
[2018-01-02] MEDS: APIXABAN 5 MG TABLET PO SCH (09:10)
[2018-01-02] MEDS: methylPREDNISolone SOD SUCC 125 MG/2 ML VIAL IV PUSH SCH (09:10)
[2018-01-02] MEDS: GABAPENTIN 300 MG CAP PO SCH (09:10)
[2018-01-02] MEDS: TIOTROPIUM BROMIDE 18 MCG INH INH SCH (09:11)
[2018-01-02] MEDS: METOPROLOL TARTRATE 25 MG TAB PO SCH (09:11)
[2018-01-02] MEDS: guaiFENesin E.R. 600 MG TAB PO SCH (09:12)
[2018-01-02] MEDS: MULTIVITAMIN TAB PO SCH (09:12)
[2018-01-02] MEDS: ACETAMINOPHEN/HYDROcodone 325 MG/5 MG TAB PO PRN (09:13)
[2018-01-02] MEDS: BACITRACIN TOP OINT 15 GM TUBE TOPICAL SCH (09:13)
--- NOTE | 2018-01-02 09:40 | HHI.PR ---
Subjective Remarks This is a pleasant 77 y/o male who has Hypertension, Hyperlipidemia, COPD, BPH, Neuropathy, GERD, Aortic valve replacement 2017 PAD, history of stent placement left lower extremities, is been treated with cellulitis of the left foot due to Pseudomonas, Left foot ulcer without drainage, has Occluded popliteal artery, switch from Zosyn to Levaquin by mouth 750 mg for two weeks, and follow with Doctor Donato OTT in one week. Stable in his bedroom, no nausea, vomit or diarrhea, discussed with Nurse Tierra tom to discharge home on [facility] for PT and wound care. continue Prednisone and Lasix. Objective Vital Signs Date Time Temp Pulse Resp B/P (MAP) Pulse Ox O2 Delivery O2 Flow Rate FiO2 01/02/18 08:37 98 21 01/02/18 08:00 97.9 94 18 161/77 (105) 96 01/02/18 00:00 106 20 133/66 (88) 95 01/01/18 21:09 92 21 01/01/18 20:00 97.4 120 20 139/76 (97) 94 01/01/18 15:38 98.4 105 18 147/74 (98) 92 01/01/18 12:00 97.8 108 19 162/72 (102) 92 01/01/18 10:38 Nasal Cannula 4.00 01/01/18 09:45 Nasal Cannula 3.00 I/O 01/01/18 01/01/18 01/01/18 01/02/18 01/02/18 01/02/18 07:00 15:00 23:00 07:00 15:00 23:00 Intake Total 200 ml 100 ml Output Total 350 ml 300 ml Balance 200 ml 100 ml -350 ml -300 ml IV Total 200 ml 100 ml Output Urine Total 350 ml 300 ml Result Diagram: 12/31/17 0519 01/01/18 1630 Imaging Last Impressions Chest X-Ray 01/01/18 0000 Signed Impressions: Service Date/Time: Monday, January 01, 2018 13:30 - CONCLUSION: Right upper lobe airspace disease and diffuse interstitial prominence again seen. Yousif Rincon MD Lower Extremity Angiography 12/31/17 0000 Signed Impressions: Service Date/Time: December 09:11 - CONCLUSION: 1. Occlusion of the left popliteal artery to just beyond the knee joint. The mid to distal below knee popliteal artery is patent. 2. Unsuccessful retrograde pedal recanalization attempt of the occluded popliteal artery. Sage Ambrosio MD Aorta w/Runoff CTA 12/26/17 0000 Signed Impressions: Service Date/Time: Tuesday, December 26, 2017 14:48 - CONCLUSION: Significant atherosclerotic vascular disease with very poor runoff below the common femorals. Sigifredo Kruse MD FACR Foot X-Ray 12/25/17 0000 Signed Impressions: Service Date/Time: Monday, December 25, 2017 16:16 - CONCLUSION: No acute bony findings Jeff Goodman MD Foot MRI 12/25/17 0000 Signed Impressions: Service Date/Time: Monday, December 25, 2017 17:36 - CONCLUSION: Saline should very small plantar fluid collection just above in the fifth metatarsal that does not extend into the deep tissues. No osteoarthritis. No foreign body identified. Sigifredo Kruse MD FACR Procedures Left femoral Endarterectomy SFA Balloon angioplasty. Status post Common femoral and Iliac artery Endarterectomy, Patch angioplasty and Angiography, Attempted Popliteal Angioplasty 12/29/17 I and D by Podiatry. Other Results Laboratory Tests Test 12/25/17 11:22 12/30/17 21:34 12/31/17 05:19 01/01/18 16:30 Erythrocyte Sedimentation Rate 22 mm/hr C-Reactive Protein 7.02 MG/DL Prothrombin Time 12.9 SEC Prothromb Time International Ratio 1.3 RATIO Activated Partial Thromboplast Time 32.0 SEC White Blood Count 7.6 TH/MM3 Red Blood Count 3.85 MIL/MM3 Hemoglobin 11.2 GM/DL Hematocrit 33.9 % Mean Corpuscular Volume 88.0 FL Mean Corpuscular Hemoglobin 29.2 PG Mean Corpuscular Hemoglobin Concent 33.1 % Red Cell Distribution Width 15.6 % Platelet Count 157 TH/MM3 Mean Platelet Volume 8.8 FL Neutrophils (%) (Auto) 76.8 % Lymphocytes (%) (Auto) 13.4 % Monocytes (%) (Auto) 9.0 % Eosinophils (%) (Auto) 0.6 % Basophils (%) (Auto) 0.2 % Neutrophils # (Auto) 5.8 TH/MM3 Lymphocytes # (Auto) 1.0 TH/MM3 Monocytes # (Auto) 0.7 TH/MM3 Eosinophils # (Auto) 0.0 TH/MM3 Basophils # (Auto) 0.0 TH/MM3 CBC Comment DIFF FINAL Differential Comment Blood Urea Nitrogen 9 MG/DL Creatinine 0.91 MG/DL Random Glucose 105 MG/DL Calcium Level 8.6 MG/DL Sodium Level 142 MEQ/L Potassium Level 3.5 MEQ/L Chloride Level 105 MEQ/L Carbon Dioxide Level 25.0 MEQ/L Anion Gap 12 MEQ/L Estimat Glomerular Filtration Rate 81 ML/MIN B-Type Natriuretic Peptide 314 PG/ML Objective Remarks GENERAL: No acute distress. SKIN: Warm and dry. HEAD: Atraumatic. Normocephalic. EYES: Pupils equal and round. No scleral icterus. No injection or drainage. ENT: No nasal bleeding or discharge. Mucous membranes pink and moist. NECK: Trachea midline. No JVD. CARDIOVASCULAR: Regular rate and rhythm. RESPIRATORY: No accessory muscle use. Clear to auscultation. Breath sounds equal bilaterally. GASTROINTESTINAL: Abdomen soft, non-tender, nondistended. Hepatic and splenic margins not palpable. MUSCULOSKELETAL: Extremities without clubbing, cyanosis, or edema. boot on Left foot. dressed. NEUROLOGICAL: Awake and alert. No obvious cranial nerve deficits. Motor grossly within normal limits. Five out of 5 muscle strength in the arms and legs. Normal speech. PSYCHIATRIC: Appropriate mood and affect; insight and judgment normal. Medications and IVs Current Medications Medications (Trade) Dose Ordered Sig/Kevin Route Start Time Stop Time Status Last Admin (Baciguent Oint) 1 applic DAILY TOPICAL 12/25/17 18:00 01/02/18 09:13 ([place] 5-325 Mg) 1 tab Q4H PRN PO 12/25/17 16:30 12/31/17 23:52 ([place] 5-325 Mg) 2 tab Q4H PRN PO 12/25/17 16:30 01/02/18 09:13 (Lipitor) 80 mg HS PO 12/25/17 21:00 01/01/18 20:40 (Cardura) 4 mg HS PO 12/25/17 21:00 01/01/18 20:40 (Proscar) 5 mg HS PO 12/25/17 21:00 01/01/18 20:40 (Neurontin) 300 mg BID PO 12/25/17 21:00 01/02/18 09:10 (Lopressor) 25 mg BID PO 12/25/17 21:00 01/02/18 09:11 (Spiriva Inh) 18 mcg DAILY INH 12/26/17 09:00 01/02/18 09:11 (Symbicort 80-4.5 Mcg Inh) 2 puff BID INH 12/25/17 21:00 01/02/18 09:00 Patient Own Medication PT OWN MED: (Levalbuterol 15 GM ... Q4H INH 12/25/17 16:45 Future Hold (Theragran) 1 tab DAILY PO 12/26/17 09:00 01/02/18 09:12 (Protonix) 20 mg HS PO 12/25/17 21:00 01/01/18 20:40 (Catapres) 0.1 mg Q6H PRN PO 12/26/17 17:15 12/31/17 13:03 (Eliquis) 5 mg BID PO 12/29/17 21:00 01/02/18 09:10 (Mucinex Er) 600 mg BID PO 12/30/17 13:15 01/02/18 09:12 (Ana-Colace) 1 tab BID PO 01/01/18 02:15 01/01/18 20:40 (Milk Of Magnesia Liq) 30 ml Q12H PRN PO 01/01/18 02:15 (Senokot) 17.2 mg Q12H PRN PO 01/01/18 02:15 (Dulcolax Supp) 10 mg DAILY PRN RECTAL 01/01/18 02:15 (Lactulose Liq) 30 ml DAILY PRN PO 01/01/18 02:15 (SoluMEDROL INJ) 60 mg Q12HR IV PUSH 01/01/18 21:00 01/02/18 09:10 (Duoneb Neb) 1 ampule Q6HR WHILE AWAKE NEB NEB 01/01/18 14:00 01/02/18 08:37 (Levaquin) 750 mg DAILY PO 01/02/18 09:00 01/16/18 09:00 01/02/18 09:11 (Mucomyst 10% Neb) 2 ml Q6HR WHILE AWAKE NEB PRN NEB 01/01/18 14:00 (Lasix Inj) 20 mg BID@09,18 IV PUSH 01/02/18 09:00 01/02/18 09:10 (K-Lyte Cl Eff) 25 meq DAILY PO 01/02/18 09:00 01/02/18 09:09 (Santyl Oint) 1 applic DAILY TOPICAL 01/01/18 18:00 01/02/18 09:00 A/P Assessment and Plan 77-year-old male admitted for left foot infection Acute hypoxic respiratory failure -Likely COPD exacerbation with mucous plugging, will start steroids albuterol and Mucomyst. chest x-ray and it shows no new changes, as the diffuse infiltrates possibly suggestive of pneumonia versus fluid overload. today improved. saturation 96 % at RA. stable okay to discharge will continue Lasix low dose. BNP 314 follow Echocardiogram as outpatient. Hemoptysis -No recurrence, monitor Left foot infected wound with cellulitis -Status post bedside debridement, MRI of the foot with Pseudomonas cellulitis per podiatry shows no new abscess. Podiatry good reperfusion intervention. Cautious on intervening again prior to. -Has been switched over to Levaquin by infectious disease from [facility] Peripheral arterial disease -Continue with Lipitor -vascular sx following pt and pt is POD 3 from External iliac and common femoral endarterectomy patch, bovine patch angioplasty and attempted popliteal artery angioplasty and angiograms with a runoff. MILTON drain in place, serosanguineous fluid noted. Unsuccessful angioplasty per IR. Vascular surgery has evaluated the patient postprocedure and deems actual clinical improvement, no further intervention warranted per vascular surgery. History of hypertension- some occasional elevated readings History of atrial fibrillation rate controlled. Eliquis Hyperlipidemia Continue on cardiac meds Lopressor Cardura and statins BPH. Continue on Cardura and Proscar GERD continue on omeprazole Neuropathy. Continue on gabapentin DVT prophylaxis patient on Eliquis Discharge Planning Discharge Home today on [facility] for PT and wound care follow by Podiatry, ID specialist and Vascular surgery. Keaton Jimenez MD January 02, 2018 09:40
[2018-01-02] MEDS ORDERED: FURO1TAB60 PO (11:28)
[2018-01-02] MEDS ORDERED: guaiFENesin ER PO (11:28)
[2018-01-02] MEDS ORDERED: PRED10 PO (11:28)
[2018-01-02] MEDS ORDERED: LEVA750T9 PO (11:28)
[2018-01-02] MEDS ORDERED: HYDR-3516 PO (11:28)
--- NOTE | 2018-01-02 11:29 | HHI.FF ---
Face to Face Verification Diagnosis: (1) Aortic stenosis (2) Cellulitis of left foot excluding toes (3) S/P AVR (aortic valve replacement) Physical Therapy Order: Evaluate and Treat, Improve ambulation, Strength and gait training Home Health Nursing Order: Medical education Signs/symptoms of disease process Medication education-adverse effect Wound care and dressing changes Nursing assessment with vital signs I have seen patient Kimo Saldaña Sr Josiah on 01/02/18. My clinical findings support the need for the requested home health care services because: Ltd mobility - disease progression I certify that my clinical findings support that this patient is homebound because: Unsafe to leave home unassisted Keaton Jimenez MD January 02, 2018 11:29
[2018-01-02] MEDS ORDERED: WALKER WHEELS/F1 MIS (11:30)
--- NOTE | 2018-01-02 11:43 | HHI.DS ---
Discharge Summary Admission Date December 25, 2017 at 11:45 Discharge Date: January 02, 2018 Admitting Diagnosis Failed outpatient treatment cellulitis left foot (1) Afib ICD Code: I48.91 - Unspecified atrial fibrillation Diagnosis: Secondary Status: Chronic (2) Cellulitis of left foot excluding toes ICD Code: L03.116 - Cellulitis of left lower limb Diagnosis: Principal (3) PAD (peripheral artery disease) ICD Code: I73.9 - Peripheral vascular disease, unspecified Diagnosis: Principal Procedures Left femoral Endarterectomy SFA Balloon angioplasty. Status post Common femoral and Iliac artery Endarterectomy, Patch angioplasty and Angiography, Attempted Popliteal Angioplasty 12/29/17 I and D by Podiatry. Brief History - From Admission Patient is a very pleasant 77-year-old male with history of peripheral artery disease- several stents place on both LE, COPD, hypertension, atrial fibrillation, hypertension, GERD who about 4 weeks ago complaining of pain of the left foot while walking. Initial evaluation by outpatient showed there was a callus on the lateral aspect of the foot. This was seen by podiatry and was removed. Patient was doing well until 2 days later started complaining of pain. Area noted to have increase erythema with an open wound there. . Was monitored there was no foreign body then no fever no chills. 1 week and a half later started having erythema and aggressive pain worsened when patient bears weight on this pain described as shooting from the lateral aspect of the foot up to the tibia. 4 days ago was seen by podiatry and was placed on cephalexin 500 mg 4 times a day. With no improvement and was advised by a mechatronics technician coming in for further evaluation and management. CBC/BMP: 12/31/17 0519 01/01/18 1630 Significant Findings Laboratory Tests Test 12/30/17 21:34 12/31/17 05:19 01/01/18 16:30 Prothrombin Time 12.9 SEC (9.8-11.6) Activated Partial Thromboplast Time 32.0 SEC (24.3-30.1) Red Blood Count 3.85 MIL/MM3 (4.50-5.90) Hemoglobin 11.2 GM/DL (13.0-17.0) Hematocrit 33.9 % (39.0-51.0) Neutrophils (%) (Auto) 76.8 % (16.0-70.0) Monocytes (%) (Auto) 9.0 % (0.0-8.0) Calcium Level 8.1 MG/DL (8.5-10.1) Chloride Level 110 MEQ/L (98-107) Estimat Glomerular Filtration Rate 81 ML/MIN (>89) 81 ML/MIN (>89) B-Type Natriuretic Peptide 314 PG/ML (0-100) Imaging Last Impressions Chest X-Ray 01/01/18 0000 Signed Impressions: Service Date/Time: Monday, January 01, 2018 13:30 - CONCLUSION: Right upper lobe airspace disease and diffuse interstitial prominence again seen. Yousif Rincon MD Lower Extremity Angiography 12/31/17 0000 Signed Impressions: Service Date/Time: December 09:11 - CONCLUSION: 1. Occlusion of the left popliteal artery to just beyond the knee joint. The mid to distal below knee popliteal artery is patent. 2. Unsuccessful retrograde pedal recanalization attempt of the occluded popliteal artery. Sage Ambrosio MD Aorta w/Runoff CTA 12/26/17 0000 Signed Impressions: Service Date/Time: Tuesday, December 26, 2017 14:48 - CONCLUSION: Significant atherosclerotic vascular disease with very poor runoff below the common femorals. Sigifredo Kruse MD FACR Foot X-Ray 12/25/17 0000 Signed Impressions: Service Date/Time: Monday, December 25, 2017 16:16 - CONCLUSION: No acute bony findings Jeff Goodman MD Foot MRI 12/25/17 0000 Signed Impressions: Service Date/Time: Monday, December 25, 2017 17:36 - CONCLUSION: Saline should very small plantar fluid collection just above in the fifth metatarsal that does not extend into the deep tissues. No osteoarthritis. No foreign body identified. Sigifredo Kruse MD FACR PE at Discharge GENERAL: No acute distress. SKIN: Warm and dry. HEAD: Atraumatic. Normocephalic. EYES: Pupils equal and round. No scleral icterus. No injection or drainage. ENT: No nasal bleeding or discharge. Mucous membranes pink and moist. NECK: Trachea midline. No JVD. CARDIOVASCULAR: Regular rate and rhythm. RESPIRATORY: No accessory muscle use. Clear to auscultation. Breath sounds equal bilaterally. GASTROINTESTINAL: Abdomen soft, non-tender, nondistended. Hepatic and splenic margins not palpable. MUSCULOSKELETAL: Extremities without clubbing, cyanosis, or edema. boot on Left foot. dressed. NEUROLOGICAL: Awake and alert. No obvious cranial nerve deficits. Motor grossly within normal limits. Five out of 5 muscle strength in the arms and legs. Normal speech. PSYCHIATRIC: Appropriate mood and affect; insight and judgment normal. Hospital Course This is a pleasant 77 y/o male who has Hypertension, Hyperlipidemia, COPD, BPH, Neuropathy, GERD, Aortic valve replacement 2017 PAD, history of stent placement left lower extremities, is been treated with cellulitis of the left foot due to Pseudomonas, Left foot ulcer without drainage, has Occluded popliteal artery, switch from Zosyn to Levaquin by mouth 750 mg for two weeks, and follow with Doctor Donato OTT in one week. Stable in his bedroom, no nausea, vomit or diarrhea, discussed with Nurse tom Berman to discharge home on [facility] for PT and wound care. continue Prednisone and Lasix. Assessment and Plan 77-year-old male admitted for left foot infection Acute hypoxic respiratory failure -Likely COPD exacerbation with mucous plugging, will start steroids albuterol and Mucomyst. chest x-ray and it shows no new changes, as the diffuse infiltrates possibly suggestive of pneumonia versus fluid overload. today improved. saturation 96 % at RA. stable okay to discharge will continue Lasix low dose. BNP 314 follow Echocardiogram as outpatient. Hemoptysis -No recurrence, monitor Left foot infected wound with cellulitis -Status post bedside debridement, MRI of the foot with Pseudomonas cellulitis per podiatry shows no new abscess. Podiatry good reperfusion intervention. Cautious on intervening again prior to. -Has been switched over to Levaquin by infectious disease from Zosyn Peripheral arterial disease -Continue with Lipitor -vascular sx following pt and pt is POD 3 from External iliac and common femoral endarterectomy patch, bovine patch angioplasty and attempted popliteal artery angioplasty and angiograms with a runoff. MILTON drain in place, serosanguineous fluid noted. Unsuccessful angioplasty per IR. Vascular surgery has evaluated the patient postprocedure and deems actual clinical improvement, no further intervention warranted per vascular surgery. History of hypertension- some occasional elevated readings History of atrial fibrillation rate controlled. Eliquis Hyperlipidemia Continue on cardiac meds Lopressor Cardura and statins BPH. Continue on Cardura and Proscar GERD continue on omeprazole Neuropathy. Continue on gabapentin DVT prophylaxis patient on Eliquis Discharge Planning Discharge Home today on [facility] for PT and wound care follow by Podiatry, ID specialist and Vascular surgery. Pt Condition on Discharge: Good Discharge Disposition: Disch w/ Home Health Serv Discharge Time: > 30 minutes Discharge Instructions DIET: Follow Instructions for: Heart Healthy Diet Activities you can perform: Regular-No Restrictions Keaton Jimenez MD January 02, 2018 11:43
== END 2018-01-02 12:38 | disposition home health service (06) | DRG 981 ==
LOC: NEPC 09:56 → NEDA 11:45 → OBSVTOIN 11:45 → NEPFCDU 14:17 → N04A 12-27 18:18 → N03B 12-29 13:29 → N07B 12-29 13:36 → N03B 12-29 17:11 → HCPC 12-29 17:13 → HCVI 12-29 20:02 → HCPC 12-30 08:51 → N07B 12-31 16:13
PROVIDERS: ADMIT Internal Medicine; ATTEND Internal Medicine
PROC: 0HBNXZZ Excision of Left Foot Skin, External Approach (ICD-10-PCS; 2017-12-27)
PROC: 04UL0KZ Supplement Left Femoral Artery with Nonautologous Tissue Substitute, Open Approach (ICD-10-PCS; 2017-12-29)
PROC: 04CL0ZZ Extirpation of Matter from Left Femoral Artery, Open Approach (ICD-10-PCS; principal; 2017-12-29 13:48)
PROC: B41G1ZZ Fluoroscopy of Left Lower Extremity Arteries using Low Osmolar Contrast (ICD-10-PCS; 2017-12-31)
DX: L03.116 Cellulitis of left lower limb (principal); J96.01 Acute respiratory failure with hypoxia; I11.0 Hypertensive heart disease with heart failure; J18.9 Pneumonia, unspecified organism; R04.2 Hemoptysis; I50.32 Chronic diastolic (congestive) heart failure; E87.70 Fluid overload, unspecified; J44.0 Chronic obstructive pulmonary disease with (acute) lower respiratory infection; J44.1 Chronic obstructive pulmonary disease with (acute) exacerbation; I70.202 Unspecified atherosclerosis of native arteries of extremities, left leg; I70.291 Other atherosclerosis of native arteries of extremities, right leg; I48.91 Unspecified atrial fibrillation; G62.9 Polyneuropathy, unspecified; E78.5 Hyperlipidemia, unspecified; L97.529 Non-pressure chronic ulcer of other part of left foot with unspecified severity; I25.10 Atherosclerotic heart disease of native coronary artery without angina pectoris; K21.9 Gastro-esophageal reflux disease without esophagitis; M19.90 Unspecified osteoarthritis, unspecified site; N40.0 Benign prostatic hyperplasia without lower urinary tract symptoms; B96.5 Pseudomonas (aeruginosa) (mallei) (pseudomallei) as the cause of diseases classified elsewhere; Z79.01 Long term (current) use of anticoagulants; Z87.891 Personal history of nicotine dependence; Y95 Nosocomial condition; Z79.899 Other long term (current) drug therapy; Z87.01 Personal history of pneumonia (recurrent); Z95.3 Presence of xenogenic heart valve; Z95.820 Peripheral vascular angioplasty status with implants and grafts
CPT/HCPCS: 36245; 71045; 71046; 73630; 73720; 75635; 75710; 76937; 80048; 83880; 85025; 85027; 85610; 85652; 85730; 86140; 86850; 86900; 86901; 86920; 87040; 87070; 87077; 87186; 87205; 93005; 94640; 94664; 99152; 99153; A9579; C1768; C1769; C1894; J0690; J1100; J1644; J1940; J2250; J2270; J2370; J2405; J2543; J2710; J2720; J2930; J3010; J3370; J7030; J7040; J7120; Q9967